=== PATIENT | male | born 1945 | race Caucasian/White ===

== ENCOUNTER 2017-03-10 19:29 | Emergency (ER) | payer MEDICARE ==
[2017-03-10 20:10] VITALS: BP 147/68
--- NOTE | 2017-03-10 20:37 | UC ---
Skin Complaint HPI - HPI Summary HPI Summary: Found tick on R trunk 2 days ago, removed it easily with his fingernails and then "popped" it in the sink and did not see blood. Is concerned about redness of skin, pain, and possible tick parts left behind. - History of Current Complaint Chief Complaint: UCGeneralIllness Time Seen by Provider: 03/10/17 20:19 Stated Complaint: TICK BITE Hx Obtained From: Patient Onset/Duration: Sudden Onset, Lasting Hours Timing: Constant Onset Severity: Mild Current Severity: None Location: Discrete Character: Redness Aggravating: Nothing Alleviating: Nothing Associated Signs & Symptoms: Positive: Negative Related History: Insect Bite/Sting - Allergy/Home Medications Allergies/Adverse Reactions: Allergies Allergy/AdvReac Type Severity Reaction Status Date / Time Minocycline [From Minocin] Allergy HANDS Verified 03/10/17 19:54 SWELL, Sulfamethoxazole Allergy NAUSEA, Verified 03/10/17 19:54 w/Trimethoprim DRY [From Bactrim] HEAVES, FELT BAD Review of Systems Constitutional: Negative Skin: Other - tick bite Eyes: Negative ENT: Negative Respiratory: Negative Cardiovascular: Negative Gastrointestinal: Negative Genitourinary: Negative Motor: Negative Neurovascular: Negative Musculoskeletal: Negative Neurological: Negative Psychological: Negative All Other Systems Reviewed And Are Negative: Yes PMH/Surg Hx/FS Hx/Imm Hx Endocrine History Of: Denies: Diabetes, Thyroid Disease Cardiovascular History Of: Reports: Cardiac Disorders - open heart, stent, Hypertension - CONTROL WITH MEDIATION, Congestive Heart Failure Denies: Pacemaker/ICD, Deep Vein Thrombosis Respiratory History Of: Reports: Pneumonia Denies: COPD, Asthma, Pulmonary Embolism GI/ History Of: Reports: Gall Bladder Disease, Kidney Stones Denies: Ulcer, Gastrointestinal Bleed Neurological History Of: Denies: TIA, CVA, Dementia, Seizures, Migraine Psychological History Of: Denies: Anxiety, Depression, Bipolar Disorder, Schizophrenia Cancer History Of: Denies: Lung Cancer Other History Of: Negative For: Anticoagulant Therapy - Surgical History Surgical History: Yes Surgery Procedure, Year, and Place: gallbladder removed 2004,umbilical hernia aprox 10 yrs ago,triple cardiac bypass 2003, cardiac stent 2004 at [place] pt does not have implant card,arthroscopic sx to L knee in 2003, TURP 2012 - Family History Known Family History: Positive: None - NO CARDIAC, RENAL DISEASE. Negative: Cardiac Disease, Renal Disease - Social History Lives: With Family Alcohol Use: None Substance Use Type: None Smoking Status (MU): Never Smoked Tobacco Have You Smoked in the Last Year: No - Immunization History Most Recent Influenza Vaccination: Fall 2012 Most Recent Tetanus Shot: within the last 2-3 years Most Recent Pneumonia Vaccination: pt unsure Physical Exam Triage Information Reviewed: Yes Appearance: Well-Appearing, No Pain Distress, Obese Vital Signs: Initial Vital Signs Temp 99.1 F 03/10/17 19:58 Pulse 65 03/10/17 19:58 Resp 18 03/10/17 19:58 BP 147/68 03/10/17 19:58 Pulse Ox 97 03/10/17 19:58 Vital Signs Reviewed: Yes Eye Exam: Normal Eyes: Positive: Conjunctiva Clear ENT Exam: Normal ENT: Positive: Normal ENT inspection, Hearing grossly normal, Pharynx normal, TMs normal Dental Exam: Normal Neck exam: Normal Neck: Positive: Supple, Nontender, No Lymphadenopathy Respiratory Exam: Normal Respiratory: Positive: Chest non-tender, Lungs clear, Normal breath sounds, No respiratory distress, No accessory muscle use Cardiovascular Exam: Normal Cardiovascular: Positive: RRR, No Murmur Musculoskeletal Exam: Normal Musculoskeletal: Positive: ROM Intact Neurological Exam: Normal Neurological: Positive: Alert Psychological Exam: Normal Skin Exam: Other - tick bite site normal, benign with bruise in center, no erythema, drainage, or streaking. No tick parts identified. Course/Dx - Diagnoses Provider Diagnoses: tick bite Discharge - Discharge Plan Condition: Stable Disposition: HOME Patient Education Materials: Tick Bite (ED) Referrals: Best Hoffmann MD [Primary Care Provider] - Additional Instructions: If you develop any of the following, please see your physician promptly: (1) Fever, chills, or generalized malaise associated with a headache. (2) A red round area at the site of the bite (or elsewhere) (3) Joint pain, joint swelling or generalized weakness. (4) Redness, swelling, or drainage at the site of the bite. Check yourself, your children and your pets for ticks whenever you've been in an area where ticks live. To remove a tick, grasp it firmly with some tweezers or a string in a slipknot as close to its head as possible and pull it steadily. Ticks do not have a typical "head" attached to their body. There are mouth parts sticking out which they use to feed. If there are mouth parts left behind in the wound there is NO increased risk of Lyme infection; however, the chances of a bacterial skin infection (cellulitis) are higher. If mouth parts remain after tick removal, the best thing to do is apply warm soaks to the area 3-4 times per day to encourage the skin to expel the foreign material. WHEN A TICK IS NOT ENGORGED AND HAS BEEN ON LESS THAN 24 HOURS - THE RISK FOR LYME IS NEGLIGIBLE. YOU CAN REMOVE THE TICK AND OBSERVE THE AREA ON YOUR OWN. FOLLOW-UP CARE: You should contact your private physician for follow-up care if you develop spreading redness near the site of the bite or on any other areas of the body. If you are unable to get a timely appointment, or if you are worsening, call us or return for re-evaluation.
== END 2017-03-10 20:40 | disposition home or self-care (01) ==
LOC: UCEAST 19:29
DX: S30.861A Insect bite (nonvenomous) of abdominal wall, initial encounter (principal); W57.XXXA Bitten or stung by nonvenomous insect and other nonvenomous arthropods, initial encounter; I10 Essential (primary) hypertension; K82.9 Disease of gallbladder, unspecified; Z98.61 Coronary angioplasty status; Z87.01 Personal history of pneumonia (recurrent); Z88.3 Allergy status to other anti-infective agents; Z87.442 Personal history of urinary calculi
CPT/HCPCS: 99211; G0463

== ENCOUNTER 2017-12-23 14:44 | Emergency (ER) | payer MEDICARE ==
[2017-12-23 17:04] VITALS: BP 144/75
[2017-12-23] MEDS ORDERED: Azithromycin TAB* 250 MG PO ONE (18:43)
--- NOTE | 2017-12-23 18:44 | UC ---
Respiratory Complaint HPI - HPI Summary HPI Summary: 2 WEEKS OF PERSISTENT COUGH, RHINITIS AND SOB WITH EXERTION AND WHEN HE TALKS. NONE AT REST. DENIES FEVER, CP, NAUSEA, ST OR EAR PAIN. - History of Current Complaint Chief Complaint: UCGeneralIllness Stated Complaint: COLD Time Seen by Provider: 12/23/17 18:24 Hx Obtained From: Patient Onset/Duration: Gradual Onset, Lasting Days, Still Present Severity Initially: Moderate Severity Currently: Moderate Pain Intensity: 0 Pain Scale Used: 0-10 Numeric Character: Cough: Productive Aggravating Factors: Nothing Alleviating Factors: Nothing Associated Signs And Symptoms: Positive: Dyspnea, URI, Nasal Congestion. Negative: Fever, Chills, Pleuritic Chest Pain, Wheezing, Edema, Hoarseness - Allergies/Home Medications Allergies/Adverse Reactions: Allergies Allergy/AdvReac Type Severity Reaction Status Date / Time MS Minocycline [From Minocin] Allergy HANDS Verified 12/23/17 16:54 SWELL, MS Sulfamethoxazole Allergy NAUSEA, Verified 12/23/17 16:54 w/Trimethoprim DRY [From Bactrim] HEAVES, FELT BAD PMH/Surg Hx/FS Hx/Imm Hx Cardiovascular History: Cardiac Disease, Hypertension Cancer History: Prostate Cancer Other History Of: Negative For: Anticoagulant Therapy - Surgical History Surgical History: Yes Surgery Procedure, Year, and Place: gallbladder removed 2004,umbilical hernia aprox 10 yrs ago,triple cardiac bypass 2003, cardiac stent 2005 at [place] pt does not have implant card,arthroscopic sx to L knee in 2003, TURP 2012 - Family History Known Family History: Positive: Hypertension Negative: Cardiac Disease, Renal Disease - Social History Alcohol Use: None Substance Use Type: None Smoking Status (MU): Never Smoked Tobacco Have You Smoked in the Last Year: No - Immunization History Most Recent Influenza Vaccination: Fall 2012 Most Recent Tetanus Shot: within the last 2-3 years Most Recent Pneumonia Vaccination: pt unsure Review of Systems Constitutional: Negative ENT: Nasal Discharge Respiratory: Shortness Of Breath, Cough Cardiovascular: Negative Gastrointestinal: Negative All Other Systems Reviewed And Are Negative: Yes Physical Exam Triage Information Reviewed: Yes Appearance: Well-Appearing, No Pain Distress, Well-Nourished, Obese Vital Signs: Initial Vital Signs Temp 99.1 F 12/23/17 16:57 Pulse 62 12/23/17 16:57 Resp 22 12/23/17 16:57 BP 144/75 12/23/17 16:57 Pulse Ox 99 12/23/17 16:57 Vital Signs Reviewed: Yes Eyes: Positive: Conjunctiva Clear ENT: Positive: Hearing grossly normal, Pharynx normal, TMs normal Neck: Positive: Supple, Nontender, No Lymphadenopathy Respiratory Exam: Normal Cardiovascular Exam: Normal Abdomen Description: Positive: Soft Musculoskeletal: Positive: No Edema Neurological: Positive: Alert Psychological: Positive: Age Appropriate Behavior Skin: Negative: rashes UC Diagnostic Evaluation - Laboratory O2 Sat by Pulse Oximetry: 99 Respiratory Course/Dx - Differential Dx/Diagnosis Provider Diagnoses: ACUTE BRONCHITIS Discharge - Discharge Plan Condition: Stable Disposition: HOME Prescriptions: Azithromycin 500 mg PO DAILY #4 tab Patient Education Materials: Acute Bronchitis (ED) Referrals: Best Hoffmann MD [Primary Care Provider] - If Needed Additional Instructions: FLU SWAB NEGATIVE. YOUR SYMPTOMS MAY BE VIRALLY MEDIATED BUT GIVEN THE LENGTH OF TIME YOU HAVE BEEN ILL WE WILL COVER YOU WITH ANTIBIOTICS. IF YOU START THE MEDICINE BE SURE TO TAKE IT FOR THE FULL COURSE. REST, HYDRATE, OTC MEDS NEEDED. SEEK FOLLOW-UP WITH YOUR PCP IF YOU ARE NOT IMPROVING OVER THE NEXT 1 WEEK.
== END 2017-12-23 18:55 | disposition home or self-care (01) ==
LOC: UCEAST 14:44
DX: J20.9 Acute bronchitis, unspecified (principal); I11.9 Hypertensive heart disease without heart failure; Z85.46 Personal history of malignant neoplasm of prostate; Z90.49 Acquired absence of other specified parts of digestive tract; Z95.1 Presence of aortocoronary bypass graft; Z95.5 Presence of coronary angioplasty implant and graft; E66.9 Obesity, unspecified; Z88.2 Allergy status to sulfonamides; Z88.8 Allergy status to other drugs, medicaments and biological substances
CPT/HCPCS: 87502; 99212; A9270-GY; G0463

== ENCOUNTER 2018-06-11 10:39 | Emergency (ER) | payer MEDICARE ==
--- OUTSIDE RECORDS SUMMARY | 2018-06-11 10:47 | XMS REPORT ---
:1945 External Reference #:[id number] Author Organization [employer] Address [address] [place] [address] [place] [address] Phone [phone] Care Team Providers Name Role Phone Best Hoffmann MD Primary Care Physician Unavailable Payers Type Date Identification Numbers Payment Provider Subscriber Medicare Primary Effective: Policy Number: Medicare Shady Stroud 2007 [id number] [facility] PayID: [id number] [address] [place] [address] [facility] Part [facility] Effective: Policy Number: [facility] Shady Stroud 2012 [id number] [facility] Mamie PayID: [id number] [address] [place] [address] Problems Date Description Provider Status Onset: 10/18/2013 Arteriosclerosis of autologous Maurice Zurita M.D., Active vein coronary artery bypass graft FAC, FASNC Onset: 11/04/2013 Difficulty breathing Maurice Zurita M.D., Active FAC, FASNC Onset: 04/28/2015 Essential hypertension Erick Gaviria M.D. 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., Active coronary artery w/o ang pctrs FAC, FASNC Family History Date Family Member(s) Problem(s) Comments General MGM lived until 89 PGM lived until 89 Father due to d/t colon cancer () Father Liver Cancer Mother Breast Cancer Mother Colon Cancer Mother Heart issues ; [facility] age 89April Siblings 3 Siblings Brother w/emphysema Siblings Sister w/heart issues; brother smokes/drinks alot Social History Type Date Description Comments Marital Status Lives With Alone son lives with Occupation Retired Cigarette Use Never Smoked Cigarettes ETOH Use Denies alcohol use Smoking Patient has never smoked Recreational Drug Use Denies Drug Use Daily Caffeine Consumes on average 1 soda per day Exercise Type/Frequency Exercises sporadically Exercise Type/Frequency Walks sporadically Allergies, Adverse Reactions, Alerts Date Description Reaction Status Severity Comments 10/17/2013 Bactrim nausea active 10/18/2013 Minocin hand swelling active 03/27/2017 Isosorbide active Mild questionable- knee pain Medications Medication Date Status Form Strength Qnty SIG Indications Ordering Provider Lasix 10/01/ Active 40mg 1 11/14 tab Unknown 2014 po qd Lisinopril 04/27/ Active Tablets 20mg 1 by Unknown 2014 mouth every day Simvastatin 04/27/ Active Tablets 40mg 1 by Unknown 2014 mouth every night at bedtime Niacin / Active Tablets 500mg 30tabs 1 po qd Unknown 0000 Atenolol / Active Tablets 50mg 90tabs 1 po qAM Unknown 0000 Aspirin / Active Tablets DR 81mg 30tabs 1 po qd Unknown 0000 Cpap 00/ Active Device qhs Unknown 0000 Acetaminophen 00/00/ Active Tablets 500mg 2 tablets Unknown 0000 every 6 hours as needed for pain Advil 04/27/ Hx Capsules 200mg as needed Unknown 2014 - 2015 Lasix 11/17/ Hx Tablets 40mg 30tabs 1 by Maurice Garcia 2015 - mouth Parminder, 10/01/ every day Ivan 2015 FAC, FASNC Zocor /00/ Hx Tablets 40mg 30tabs 1 po qhs Unknown 0000 - 2014 Isosorbide /00/ Hx Tablets ER 30mg 90tabs 1 po qd Unknown Mononitrate 0000 - 24HR 2015 Altace 00/00/ Hx 10mg 2 tablets Unknown 0000 - po qPM 2014 Finasteride // Hx Tablets 5mg 30tabs 1 po qd Unknown 0000 - 2012 Vitamin B-12 0000/ Hx Unknown 0000 - 2012 Medications Administered in Office Medication Date Status Form Strength Qnty SIG Indications Ordering Provider Inj, Administered Injection Paresh SAshkan Regadenoson, 016 Bradley, DO 0.1 MG FACC Inj, Administered Injection Maurice Garcia Regadenoson, 016 Zurita, 0.1 MG M.D., FACC, FASNC Technetium TC Administered Injection Paresh S. 99M 016 Bradley, DO Tetrofosmin, FACC Per Unit Dose Up To 40 Millicuries Technetium TC Administered Injection Maurice Garcia 99M 016 Zurita, Tetrofosmin, M.D., FACC, Per Unit Dose FASNC Up To 40 Millicuries Technetium TC Administered Injection Maurice Garcia 99M 013 Zurita, Tetrofosmin, M.D., FACC, Per Unit Dose FASNC Up To 40 Millicuries Immunizations CPT Code Status Date Vaccine Lot # [id number] Given 04/28/2015 Fluvirin Im 3Yrs And Older Vital Signs Date Vital Result Comment 05/28/2018 Height 72 inches 6'0" Weight 375.25 lb with shoes Heart Rate 64 /min BP Systolic Sitting 134 mmHg Lue lrg cuff BP Diastolic Sitting 68 mmHg Lue lrg cuff BP Systolic Standing 140 mmHg Lue lrg cuff BP Diastolic Standing 76 mmHg Lue lrg cuff Respiratory Rate 18 /min BMI (Body Mass Index) 50.9 kg/m2 Ejection Fraction 50-55% 10/21/2015-echo 10/04/2017 Height 72 inches 6'0" Weight 386.00 lb with shoes Heart Rate 60 /min BP Systolic Sitting 144 mmHg Lue large cuff BP Diastolic Sitting 90 mmHg Lue large cuff Respiratory Rate 18 /min O2 % BldC Oximetry 96 % On Ra BMI (Body Mass Index) 52.3 kg/m2 03/27/2017 Height 72 inches 6'0" Weight 380.75 lb with shoes Heart Rate 58 /min BP Systolic Sitting 150 mmHg Rue lrg cuff BP Diastolic Sitting 94 mmHg Rue lrg cuff BP Systolic Standing 146 mmHg Rue lrg cuff BP Diastolic Standing 86 mmHg Rue lrg cuff Respiratory Rate 20 /min BMI (Body Mass Index) 51.6 kg/m2 Ejection Fraction 50-55% 10/21/2015-echo 10/04/2016 Height 72 inches 6'0" Weight 365.00 lb Heart Rate 63 /min BP Systolic Sitting 130 mmHg BP Diastolic Sitting 76 mmHg Respiratory Rate 18 /min O2 % BldC Oximetry 97 % BMI (Body Mass Index) 49.5 kg/m2 04/01/2016 Height 73 inches 6'1" Weight 377.75 lb with shoes Heart Rate 60 /min BP Systolic Sitting 120 mmHg LA lrg cuff BP Diastolic Sitting 72 mmHg LA lrg cuff BP Systolic Standing 116 mmHg LA lrg cuff BP Diastolic Standing 66 mmHg LA lrg cuff BMI (Body Mass Index) 49.8 kg/m2 Ejection Fraction 50%-55% echo 10/21/15 12/02/2015 Height 73 inches 6'1" Weight 376.75 lb with shoes Heart Rate 56 /min BP Systolic Sitting 124 mmHg Ra Lg cuff BP Diastolic Sitting 78 mmHg Ra Lg cuff BP Systolic Standing 124 mmHg Ra Lg cuff BP Diastolic Standing 72 mmHg Ra Lg cuff Respiratory Rate 16 /min BMI (Body Mass Index) 49.7 kg/m2 Ejection Fraction 50-55% 10/21/15 10/07/2015 Height 73 inches 6'1" Weight 373.00 lb Heart Rate 56 /min BP Systolic Sitting 122 mmHg LA large cuff BP Diastolic Sitting 78 mmHg LA large cuff BP Systolic Standing 118 mmHg LA BP Diastolic Standing 82 mmHg LA Respiratory Rate 16 /min BMI (Body Mass Index) 49.2 kg/m2 Ejection Fraction 55-60% 11/04/14 10/02/2015 Height 73 inches 6'1" Weight 270.00 lb Heart Rate 52 /min BP Systolic Sitting 134 mmHg BP Diastolic Sitting 74 mmHg Respiratory Rate 18 /min O2 % BldC Oximetry 97 % BMI (Body Mass Index) 35.6 kg/m2 06/30/2015 Height 73 inches 6'1" Weight 270.00 lb Heart Rate 60 /min BP Systolic Sitting 142 mmHg BP Diastolic Sitting 84 mmHg Respiratory Rate 20 /min O2 % BldC Oximetry 97 % BMI (Body Mass Index) 35.6 kg/m2 04/28/2015 Height 73 inches 6'1" Weight 378.12 lb Heart Rate 63 /min BP Systolic Sitting 140 mmHg BP Diastolic Sitting 82 mmHg Respiratory Rate 20 /min Body Temperature 97.1 F O2 % BldC Oximetry 96 % BMI (Body Mass Index) 49.9 kg/m2 Neck Circumference in inches 20.5 11/17/2014 Weight 365.00 lb per pt Heart Rate 62 /min BP Systolic Sitting 140 mmHg Ra, lg cuff BP Diastolic Sitting 90 mmHg Ra, lg cuff BP Systolic Standing 138 mmHg Ra, lg cuff BP Diastolic Standing 88 mmHg Ra, lg cuff Respiratory Rate 20 /min 11/04/2013 Height 71 inches 5'11" Heart Rate 62 /min BP Systolic Sitting 144 mmHg Lf arm, Lg cuff BP Diastolic Sitting 88 mmHg Lf arm, Lg cuff BP Systolic Standing 142 mmHg BP Diastolic Standing 90 mmHg Respiratory Rate 16 /min 10/18/2013 Height 611 inches 50'11" Weight 359.00 lb without shoes weight RM 6 Heart Rate 68 /min reg BP Systolic Sitting 140 mmHg R arm lg cuff BP Diastolic Sitting 80 mmHg R arm lg cuff BP Systolic Standing 134 mmHg R arm lg cuff BP Diastolic Standing 80 mmHg R arm lg cuff Respiratory Rate 17 /min BMI (Body Mass Index) 0.7 kg/m2 Results Description No Information Procedures Date CPT Code Description Status 05/28/2018 80827 EKG Tracing & Interpretation Completed 03/27/2017 26512 EKG Tracing & Interpretation Completed 04/01/2016 96463 EKG Tracing & Interpretation Completed 11/23/2015 09056 Stress Test Completed 11/23/2015 24165 Myocardial Perfusion Imaging Tomographic (Spect) Completed Multiple Studies 11/23/2015 64141 Myocardial Perfusion Imaging Tomographic (Spect) Completed Multiple Studies 10/21/2015 30902 ECHO Transthoracic, Real-Time 2D With Doppler And Color Completed Flow 10/07/2015 98027 EKG Tracing & Interpretation Completed 06/04/2015 70241 Polysomnography Sleep Staging 4+ Parameters W/Cpap Completed 11/17/2014 73872 EKG Tracing & Interpretation Completed 11/04/2014 67752 ECHO Transthoracic, Real-Time 2D With Doppler And Color Completed Flow 10/28/2013 01068 Stress Test Completed 10/28/2013 50578 Myocardial Perfusion Imaging Tomographic (Spect) Completed Multiple Studies 10/25/2013 41797 ECHO Transthoracic, Real-Time 2D With Doppler And Color Completed Flow 10/18/2013 29225 EKG Tracing & Interpretation Completed Encounters Type Date Location Provider CPT E/M Dx Office Visit 10/04/2017 [facility] Pat Rodríguez, 22376 G47.33 9:00a [facility] WU RN, CARDIAC EXERCISE PHYSIOLOGIST-BC Office Visit 03/27/2017 [facility] Maurice Zurita, 62883 I25.810 8:45a Leigh Ann Love, [facility] Office Visit 10/04/2016 [facility] Pat Rodríguez, 08413 G47.33 9:00a [facility] WU RN, [facility] Office Visit 04/01/2016 [facility] Jose Zurita, 63585 I25.10 1:15p Ivan, JO, [facility] Office Visit 12/02/2015 [facility] Jose Zurita, 08101 I25.718 9:15a Leigh Ann Love, [facility] Office Visit 10/07/2015 [facility] Jose Zurita, 69568 I25.718 9:45a Leigh Ann Love, [facility] Office Visit 10/02/2015 [facility] Pat Rodríguez, 73557 G47.33 10:00a [facility] WU RN, [facility] Office Visit 06/30/2015 [facility] Pat Rodríguez, 38753 327.23 10:00a [facility] Ann WU RN, [facility] Office Visit 04/28/2015 [facility] Erick Gaviria M.D. 67673 327.23 8:30a [facility] 401.9 Office Visit [facility] 04580 414.02 Leigh Ann Love, [facility] Office Visit 03/14/2014 1:32p [facility] Malcom Rowell 32532 780.60 Infectious Diseases Ivan Singh 780.64 729.1 288.50 287.5 Office Visit 03/14/2014 4:04p [facility], Genoveva Contreras, 17201 414.02 Hospitalists Ivan 401.9 995.91 Office Visit 03/13/2014 4:04p [facility], Jose L Nettles, 79877 481 Hospitalists Ivan 995.91 414.02 401.9 Office Visit 03/13/2014 10:15a [facility] Malcom Rowell 82304 780.60 Infectious Diseases Ivan Singh Office Visit 03/12/2014 4:03p [facility] Charli Torres M.D. 38231 481 Ass, Hospitalists 995.91 414.02 401.9 Office Visit 11/04/2013 1:00p [facility] Maurice Zurita, 55073 786.09 Leigh Ann Love, [facility] Office Visit 10/18/2013 8:45a [facility] Maurice Zurita, 13041 414.02 Leigh Ann Love, [facility] Plan of Care Future Appointment(s):10/03/2018 9:00 am - Pat Rodríguez DNP, RN, CARDIAC EXERCISE PHYSIOLOGIST-BC at [facility]05/28/2018 - Maurice Zurita M.D., [facility], [facility].10 Athscl heart disease of jamul coronary artery w/o ang pctrsNew Orders:EchocardiogramComments:As discussed, I feel your heart is doing well. Pleae continue to walk for exercise.Follow up:one year after echo
[2018-06-11 10:58] VITALS: BP 148/83
--- NOTE | 2018-06-11 11:07 | UC ---
Lower Extremity/Ankle HPI - HPI Summary HPI Summary: This is arjun Rod documenting for attending Cassie Oseguera MD. This patient is a 72 year old M presenting to [facility] with a chief complaint of an aching and swelling of the left foot since the morning of 06/09/2018. The patient rates the pain 8/10 in severity. Symptoms aggravated by ambulation and standing No pain with rest or palpation. He also reports redness on his left foot. Pt with small scab and unsure if "bugbite" Patient denies fever, trauma, chills, nausea, and vomiting. He took ibuprofen which had no effect. Pt walking with a limp. No DM. Pt is not immunocompromised. He is on medication for HTN. H Pt's medications reviewed this visit - History of Current Complaint Chief Complaint: UCLowerExtremity Stated Complaint: FOOT PAIN Hx Obtained From: Patient Onset/Duration: Lasting Days - since the morning of 06/09/2018, Still Present Severity Initially: Severe Severity Currently: Severe Pain Intensity: 8 Pain Scale Used: 0-10 Numeric Aggravating Factor(s): Ambulation Able to Bear Weight: Yes - but with a limp - Allergies/Home Medications Allergies/Adverse Reactions: Allergies Allergy/AdvReac Type Severity Reaction Status Date / Time minocycline [From Minocin] Allergy Rash Verified 06/11/18 10:59 sulfamethoxazole Allergy Swelling Verified 06/11/18 11:00 [From Bactrim] trimethoprim [From Bactrim] Allergy Swelling Verified 06/11/18 11:00 PMH/Surg Hx/FS Hx/Imm Hx Previously Healthy: Yes Cardiovascular History: Cardiac Disease, Hypertension Cancer History: Prostate Cancer - 2012 Other History Of: Negative For: Anticoagulant Therapy - Surgical History Surgical History: Yes Surgery Procedure, Year, and Place: gallbladder removed 2004,umbilical hernia aprox 10 yrs ago,triple cardiac bypass 2003, cardiac stent 2004 at [place] pt does not have implant card,arthroscopic sx to L knee in 2003, TURP 2012 - Family History Known Family History: Positive: Hypertension, Diabetes Negative: Cardiac Disease, Renal Disease - Social History Alcohol Use: None Substance Use Type: None Smoking Status (MU): Never Smoked Tobacco Have You Smoked in the Last Year: No - Immunization History Most Recent Influenza Vaccination: Fall 2012 Most Recent Tetanus Shot: within the last 2-3 years Most Recent Pneumonia Vaccination: pt unsure Review of Systems Skin: Other - redness of L foot Musculoskeletal: Edema, Other: - pain in his left foot. Is Patient Immunocompromised?: No All Other Systems Reviewed And Are Negative: Yes Physical Exam - Summary Physical Exam Summary: Vital Signs Reviewed: Yes A+Ox3, no distress Eyes: Conjunctiva Clear, JOSE ALBERTO. EOM intact and full ENT: Hearing grossly normal TM x 2 clear, mmoist, uvula midline, no exudate, no erythema Neck: Positive: Supple Respiratory: Positive: No respiratory distress, No accessory muscle use + CTA throughout no w/r Cardiovascular: RRR nl s1, s2 no m/r CBT <2 sec 1+ PT left 1+ b/l pitting edema abd soft + BS nt/nd no guarding, no distension Musculoskeletal Exam: + SLE + flexext knee, ankle pain dorsum foot with extension, pain base midfoot with flexion. No point tenderness. Neurological: Positive: Alert, + sensation throughout Psychological: Positive: Normal Response To Family Skin: Positive: left foot - diffuse edema, erythema dorsum of foot. pt with small scab dorsum midfoot -no fluctuance, no duration. warm no ttp Triage Information Reviewed: Yes Vital Signs: Initial Vital Signs Temp 98 F 06/11/18 10:55 Pulse 67 06/11/18 10:55 Resp 16 06/11/18 10:55 BP 148/83 06/11/18 10:55 Pulse Ox 99 06/11/18 10:55 Lower Extremity Course/Dx - Course Course Of Treatment: Patient presents with 2 days of diffuse edema swelling and erythema of his left foot. Patient states he first noticed a wound on the top of his foot may be bug bite. Patient states the swelling and redness started after this. Patient without any fevers or chills. Patient without any red streaking. Patient with diffuse erythema on the dorsum of the foot concerning for cellulitis. Patient's CSM intact distally. Will check CBC and chemistry. We'll give patient IM Ancef. We'll start patient on Augmentin. Patient elevate. Patient on crutches here states he has at home. Recommend patient take Motrin Tylenol for pain recommend contact PCP today for recheck appointment this week. Return precautions discussed. Patient returns with the emergency department for increased pain, redness, swelling, or any other concerns. - Differential Dx/Diagnosis Provider Diagnoses: cellulitis left foot Discharge - Sign-Out/Discharge Documenting (check all that apply): Patient Departure - Discharge Plan Condition: Stable Disposition: HOME Prescriptions: Amoxicillin/Clavulanate TAB* [Augmentin TAB 875*] 875 mg PO BID #20 tab Patient Education Materials: Cellulitis (ED) Referrals: Best Hoffmann MD [Primary Care Provider] - Additional Instructions: - Take antibiotics 2 times a day as prescribed - Elevate her leg to help with swelling and pain - It is recommended to use crutches to prevent limping and injury to your back or right leg -If you develop fevers, increased redness, increased pain or any other concerns is recommended to go to emergency department for further evaluation and treatment - okay to alternate ibuprofen (advil, motrin) 600mg and tylenol every 3hours for pain or fever. Take with food. -Contact your doctor today to schedule follow-up appointment for tomorrow afternoon or Monday morning. - Billing Disposition and Condition Condition: STABLE Disposition: Home
[2018-06-11] MEDS ORDERED: ceFAZolin 1 GM in Dextrose (*) 1 GM/50 ML BAG IVPB ONE (11:19)
[2018-06-11] MEDS ORDERED: ceFAZolin 500 MG VIAL(*) 500 MG VIAL IM ONE (11:56)
[2018-06-11] MEDS ORDERED: ceFAZolin 1 GM VIAL(*) ONE (12:21)
[2018-06-11 18:21] LABS: EGFR Non-African American 77.4 (>60)
== END 2018-06-11 12:48 | disposition home or self-care (01) ==
LOC: UCEAST 10:39
DX: L03.116 Cellulitis of left lower limb (principal); I10 Essential (primary) hypertension; Z88.2 Allergy status to sulfonamides; Z88.1 Allergy status to other antibiotic agents
CPT/HCPCS: 36415; 80048; 96372; 99212; G0463; J0690

== ENCOUNTER 2018-08-27 18:06 | Emergency (ER) | payer MEDICARE ==
[2018-08-27] MEDS ORDERED: NS 0.9% 1000 ML* 1,000 ML IV ONE (18:46)
[2018-08-27] MEDS ORDERED: Ondansetron INJ* 2 MG/ML VIAL IV ONE (18:46)
[2018-08-27] MEDS ORDERED: Morphine VIAL* 10 MG/ML 1 ML VIAL IV ONE (18:52)
--- NOTE | 2018-08-27 18:58 | ED ---
Abdominal Pain/Male - HPI Summary HPI Summary: Patient complains of left lower quadrant pain and nausea starting around 1 PM today. Abdominal pain is described as constant, achy, rated 8/10. Denies fever , cough, sore throat, CP, SOB, V/D, change in urine, change in BM. Medical history as HTN, pancreatitis, CABG in 2003. Abdominal surgical history is Vandana , hernia repair. Patient is compliant with hypertension medications. - History of Current Complaint Chief Complaint: EDAbdPain Stated Complaint: ABD PAIN/VOMITING Time Seen by Provider: 08/27/18 18:43 Hx Obtained From: Patient Onset/Duration: Sudden Onset Timing: Constant Severity Initially: Severe Severity Currently: Severe Pain Intensity: 8 Pain Scale Used: 0-10 Numeric Location: Discrete At: LLQ Radiates: No Character: Cramping Aggravating Factor(s): Nothing Alleviating Factor(s): Nothing Associated Signs And Symptoms: Positive: Nausea - Allergies/Home Medications Allergies/Adverse Reactions: Allergies Allergy/AdvReac Type Severity Reaction Status Date / Time minocycline [From Minocin] Allergy Rash Verified 08/27/18 18:30 sulfamethoxazole Allergy Swelling Verified 08/27/18 18:30 [From Bactrim] trimethoprim [From Bactrim] Allergy Swelling Verified 08/27/18 18:30 Home Medications: Home Medications Latanoprost 0.005%* [Xalatan 0.005%*] 1 drop BOTH EYES QPM 08/27/18 [History Confirmed 08/27/18] PMH/Surg Hx/FS Hx/Imm Hx Endocrine/Hematology History: Denies: Hx Anticoagulant Therapy, Hx Blood Disorders, Hx Blood Transfusions, Hx Bone Marrow Disease, Hx Diabetes, Hx Systemic Lupus Erythematosus, Hx Sickle Cell Disease, Hx Thyroid Disease, Hx Anemia, Hx Unexplained Bleeding Cardiovascular History: Reports: Hx Angioplasty, Hx Cardiac Arrest, Hx Congestive Heart Failure, Hx Coronary Artery Disease, Hx Hypercholesterolemia, Hx Hypertension - CONTROL WITH MEDIATION, Other Cardiovascular Problems/ Disorders - 2004 HEART CATHERIZATION WITH STENT PLACEMENT Denies: Hx Aneurysm, Hx Angina, Hx Auto Implanted Cardiovert Defib, Hx Congenital Heart Disease, Hx Deep Vein Thrombosis, Hx Embolism, Hx Hypotension, Hx Pacemaker/ICD, Hx Peripheral Vascular Disease, Hx Rheumatic Fever, Hx Syncope , Hx Valvular Heart Disease Comment Only: Hx Cardiomegaly - unsure Respiratory History: Reports: Hx Pneumonia, Hx Seasonal Allergies, Hx Sleep Apnea - CPAP at home Denies: Hx Asthma, Hx Chronic Bronchitis, Hx Chronic Obstructive Pulmonary Disease (COPD), Hx Cystic Fibrosis, Hx Lung Cancer, Hx Pleural Effusion, Hx Pulmonary Edema, Hx Pulmonary Embolism, Other Respiratory Problems/Disorders GI History: Reports: Hx Gall Bladder Disease, Other GI Disorders - pancreatitis Denies: Hx Cirrhosis, Hx Crohn's Disease, Hx Diverticulosis, Hx Gastroesophageal Reflux Disease, Hx Gastrointestinal Bleed, Hx Hiatal Hernia, Hx Irritable Bowel, Hx Jaundice, Hx Obstructive Bowel, Hx Ileostomy, Hx Pyloric Stenosis, Hx Ulcer History: Reports: Hx Benign Prostatic Hyperplasia - s/p TURP, Hx Kidney Stones, Other Problems/Disorders - ENLARGE PROSTATE Denies: Hx Acute Renal Failure, Hx Chronic Renal Failure, Hx Dialysis, Hx Kidney Infection Musculoskeletal History: Reports: Hx Arthritis - GENERALIZED, LEFT KNEE WORSE Denies: Hx Back Problems, Hx Bursitis, Hx Congenital Bone Abnormalities, Hx Fibromyalgia, Hx Gout, Hx Orthopedic Injury, Hx Osteoporosis, Hx Scoliosis, Hx Tendonitis Sensory History: Reports: Hx Cataracts - cataract sx, Hx Contacts or Glasses, Hx Hearing Problem Denies: Hx Eye Injury, Hx Eye Prosthesis, Hx Glaucoma, Hx Legally Blind, Hx Macular Degeneration, Hx Vision Problem, Hx Deafness, Hx Hearing Aid Opthamlomology History: Reports: Hx Cataracts - cataract sx, Hx Contacts or Glasses Denies: Hx Eye Injury, Hx Eye Prosthesis, Hx Glaucoma, Hx Legally Blind, Hx Macular Degeneration, Hx Vision Problem Neurological History: Reports: Other Neuro Impairments/Disorders - carpal tunnel Denies: Hx Dementia, Hx Developmental Delay, Hx Headaches, Hx Migraine, Hx Nerve Disease, Hx Seizures, Hx Spinal Cord Injury, Hx Transient Ischemic Attacks (TIA) Psychiatric History: Denies: Hx Anxiety, Hx Attention Deficit Hyperactivity Disorder, Hx Eating Disorder, Hx Depression, Hx Panic Disorder, Hx Post Traumatic Stress Disorder, Hx Inpatient Treatment, Hx Community Mental Health Tx, Hx Schizophrenia, Hx Bipolar Disorder, Hx Suicide Attempt, Hx of Violent Episodes Against Others, Hx Substance Abuse - Cancer History Cancer Type, Location and Year: prostate cancer 2012 Hx Chemotherapy: No Hx Radiation Therapy: Yes Hx Palliative Cancer Treatment: No - Surgical History Surgery Procedure, Year, and Place: gallbladder removed 2004,umbilical hernia aprox 10 yrs ago,triple cardiac bypass 2003, cardiac stent 2004 at [place] pt does not have implant card,arthroscopic sx to L knee in 2004, TURP 2013 Hx Anesthesia Reactions: No Infectious Disease History: No Infectious Disease History: Denies: Hx Clostridium Difficile, Hx Hepatitis, Hx Human Immunodeficiency Virus (HIV), Hx of Known/Suspected MRSA, Hx Shingles, Hx Tuberculosis, Hx Known/ Suspected VRE, Hx Known/Suspected VRSA, Traveled Outside the [place] in Last 30 Days - Family History Known Family History: Positive: Hypertension, Diabetes Negative: Cardiac Disease, Renal Disease - Social History Alcohol Use: None Substance Use Type: Reports: None Smoking Status (MU): Never Smoked Tobacco Have You Smoked in the Last Year: No Review of Systems Constitutional: Negative Eyes: Negative ENT: Negative Cardiovascular: Negative Respiratory: Negative Positive: Abdominal Pain, Nausea Genitourinary: Negative Musculoskeletal: Negative Skin: Negative Neurological: Negative Psychological: Normal All Other Systems Reviewed And Are Negative: Yes Physical Exam - Summary Physical Exam Summary: Abdomen soft nontender in all quadrants. Triage Information Reviewed: Yes Vital Signs On Initial Exam: Initial Vitals Temp Pulse Resp BP Pulse Ox 98.2 F 74 20 203/95 95 08/27/18 18:26 08/27/18 18:26 08/27/18 18:26 08/27/18 18:26 08/27/18 18:26 Vital Signs Reviewed: Yes Appearance: Positive: Well-Appearing Skin: Positive: Warm Head/Face: Positive: Normal Head/Face Inspection Eyes: Positive: Normal Neck: Positive: Supple Respiratory/Lung Sounds: Positive: Clear to Auscultation Cardiovascular: Positive: Normal Abdomen Description: Positive: Other: Musculoskeletal: Positive: Normal Neurological: Positive: Normal Psychiatric: Positive: Normal AVPU Assessment: Alert - [place] Coma Scale Best Eye Response: 4 - Spontaneous Best Motor Response: 6 - Obeys Commands Best Verbal Response: 5 - Oriented Coma Scale Total: 15 Diagnostics - Vital Signs Vital Signs Temp Pulse Resp BP Pulse Ox 08/27/18 18:26 98.2 F 74 20 203/95 95 - Laboratory Result Diagrams: 08/27/18 19:12 08/27/18 19:12 Lab Statement: Any lab studies that have been ordered have been reviewed, and results considered in the medical decision making process. Abdominal Pain Fem Course/Dx - Course Course Of Treatment: Patient complains of left lower quadrant pain and nausea starting around 1 PM today. Abdominal pain is described as constant, achy, rated 8/10. Denies fever, cough, sore throat, CP, SOB, V/D, change in urine, change in BM. Medical history as HTN, pancreatitis, CABG in 2003. Abdominal surgical history is Vandana, hernia repair. Patient is compliant with hypertension medications. Physical exam:Abdomen soft nontender in all quadrants. SBP elevated 203/95. History of hypertension, states compliant with hypertension meds. Vital signs otherwise within normal limits. Labs unremarkable. CT positive for left punctate kidney stone. - Diagnoses Provider Diagnoses: Kidney stone on left side Discharge - Sign-Out/Discharge Documenting (check all that apply): Patient Departure - Discharge Plan Condition: Stable Disposition: HOME Prescriptions: HYDROcodone/ACETAMIN 5-325 MG* [[place] 5-325 TAB*] 1 tab PO Q6H PRN 3 Days #10 tab MDD 4 tabs PRN Reason: Pain Patient Education Materials: Kidney Stones (ED), How to Strain Your Urine (ED) Referrals: Best Hoffmann MD [Primary Care Provider] - Rajesh Montelongo MD [Medical Doctor] - Additional Instructions: Follow-up with urology Dr. Montelongo. Return to the ED for any new or worsening symptoms - Billing Disposition and Condition Condition: STABLE Disposition: Home
[2018-08-27 19:19] LABS: ABS Basophils 0 10^3/ul (0-0.2); ABS Eosinophils 0.1 10^3/ul (0-0.6); ABS Lymphocytes 0.9 10^3/ul (1.0-4.8); ABS Monocytes 0.6 10^3/ul (0-0.8); ABS Nucleated RBC 0 10^3/ul; Eosinophil % 1.1 % (0-6); Hematocrit 41 % (42-52); Hemoglobin 13.8 g/dl (14.0-18.0); Lymphocyte % 11.4 % (25-47); Mean Corpuscular HGB Conc 33 g/dl (31-36); Mean Corpuscular Hemoglobin 31 pg (27-31); Mean Corpuscular Volume 92 fL (80-94); Mean Platelet Volume 8.4 um3 (7.4-10.4); Nucleated Red Blood Cells % 0.1; Platelet Count 139 10^3/ul (150-450); Red Blood Count 4.48 10^6/ul (4.00-5.40); Red Cell Distribution Width 15 % (10.5-15); White Blood Count 7.6 10^3/ul (3.5-10.8)
[2018-08-27] MEDS ORDERED: Iohexol 300* (CONTRAST) 10 ML SDV IV ONE (19:47)
[2018-08-27] MEDS ORDERED: Morphine INJ* 4 MG/ML 1 ML SYRINGE (NEW SYRINGE VERSION) IV ONE (20:15)
[2018-08-27 20:17] LABS: Urine Appearance Clear; Urine Blood Negative (Negative); Urine Color Yellow; Urine Ketones Negative (Negative); Urine Protein Negative (Negative); Urine Specific Gravity 1.012 (1.010-1.030); Urine Urobilinogen Negative (Negative)
--- NOTE | 2018-08-27 20:55 | RAD ---
EXAM: CT Abdomen and Pelvis With Intravenous Contrast EXAM DATE/TIME: 08/27/2018 8:14 PM CLINICAL HISTORY: 73 years old, male; Pain; Abdominal pain; Generalized; Prior surgery; Surgery date: 6+ months; Surgery type: Turp, cholecystectomy, umbilical hernia, cabg; Additional info: Llq pain TECHNIQUE: Axial computed tomography images of the abdomen and pelvis with intravenous contrast. All CT scans at this facility use at least one of these dose optimization techniques: automated exposure control; mA and/or kV adjustment per patient size (includes targeted exams where dose is matched to clinical indication); or iterative reconstruction. Coronal and sagittal reformatted images were created and reviewed. CONTRAST: 150 ml of OMNI 300 administered intravenously. COMPARISON: P[facility]SIM CT FOR [facility] 02/06/2013 2:33 PM A/P W CT ABD/PEL W 12/26/2012 9:12:25 AM FINDINGS: Lower thorax: No acute findings. ABDOMEN: Liver: Normal. No mass. Gallbladder and bile ducts: Surgically absent gallbladder. Pancreas: Normal. No ductal dilation. Spleen: Normal. No splenomegaly. Adrenals: Normal. No mass. Kidneys and ureters: Multiple bilateral low attenuating renal lesions several of which do not measure simple fluid including right superior pole measuring 4.8 cm (series 5, image 11) previously 4.3 cm, left mid pole measuring 4.7 cm (series 5, image 13) previously 4.6 cm, and left inferior pole measuring 6.3 cm (series 5, image 26) previously 5.9 cm. Mild left pelvocaliectasis which terminates a punctate calculus distal third left ureter (series 3, image 78). Mild associated left perinephric and periureteral stranding. Associated delayed left renal enhancement. Nonobstructing renal calculus left inferior pole measures 0.5 cm. No right renal calculi pelvocaliectasis. Stomach and bowel: Incompletely distended grossly normal stomach. Normal caliber small bowel. No colonic masses or segmental wall thickening. Appendix: Normal caliber appendix without wall thickening or adjacent inflammation. PELVIS: Bladder: Thin-walled bladder with no focal nodularity, perivesicular stranding, or calcifications. Reproductive: Normal sized prostate. Normal seminal vesicles. ABDOMEN and PELVIS: Intraperitoneal space: Normal. No free air. No significant fluid collection. Bones/joints: The spine demonstrates mild degenerative changes at multiple levels. No fractures. No suspicious bone lesions. Soft tissues: Bilateral fat containing indirect inguinal hernias. No stranding. Supraumbilical fat containing hernia along the midline. No stranding. Vasculature: There is mild atherosclerotic calcification of the coronary arteries. The aorta demonstrates mild atherosclerotic calcification. Patent IVC. Lymph nodes: Normal. No enlarged lymph nodes. IMPRESSION: 1. Punctate mildly obstructing calculus distal third left ureter. Additional nonobstructing left renal calculus. 2. Bilateral stable Bosniak type II renal cysts. No followup is indicated. 3. Bilateral inguinal and supraumbilical hernias. No strangulation. To contact [facility] with a general question: Operations Center - [phone] For direct physician to physician contact: Physician Hotline - [phone] [facility] ([facility] Facility ID #[id number])
[2018-08-27] MEDS ORDERED: Ketorolac INJ* 30 MG/ML 1 ML VIAL IV ONE (21:05)
[2018-08-27] MEDS ORDERED: Ondansetron ODT TAB* 4 MG PO ONE (21:16)
[2018-08-27 21:42] VITALS: BP 166/93
== END 2018-08-27 21:45 | disposition home or self-care (01) ==
LOC: ED 18:06
DX: N20.0 Calculus of kidney (principal); R11.0 Nausea; R10.32 Left lower quadrant pain; I25.2 Old myocardial infarction; I25.10 Atherosclerotic heart disease of native coronary artery without angina pectoris
CPT/HCPCS: 36415; 74177; 80053; 81003; 83690; 85025; 86140; 96374; 96375; 96376; 99284; A9270-GY; J1885; J2270; J2405; Q9967

== ENCOUNTER 2018-09-14 13:13 | Emergency (ER) | payer MEDICARE ==
[2018-09-14 13:32] VITALS: BP 168/98
--- NOTE | 2018-09-14 14:37 | UC ---
Lower Extremity/Ankle HPI - HPI Summary HPI Summary: 73yo M c/o L ankle/foot swelling for several days. Feels similar to past instance of cellulitis however he does not have any redness. He has difficulty walking 2/2 pain and swelling and has increased pain with flexion/extension of the foot. Denies injury to foot or ankle. Denies recent immobility or car/plane ride. no hx of blood clots - History of Current Complaint Chief Complaint: UCLowerExtremity Stated Complaint: RED SWOLLEN FOOT Time Seen by Provider: 09/14/18 14:21 Hx Obtained From: Patient Onset/Duration: Gradual Onset Pain Intensity: 6 - Allergies/Home Medications Allergies/Adverse Reactions: Allergies Allergy/AdvReac Type Severity Reaction Status Date / Time minocycline [From Minocin] Allergy Rash Verified 08/27/18 18:30 sulfamethoxazole Allergy Swelling Verified 08/27/18 18:30 [From Bactrim] trimethoprim [From Bactrim] Allergy Swelling Verified 08/27/18 18:30 PMH/Surg Hx/FS Hx/Imm Hx Other History Of: Negative For: Anticoagulant Therapy - Surgical History Surgical History: Yes Surgery Procedure, Year, and Place: gallbladder removed 2004,umbilical hernia aprox 10 yrs ago,triple cardiac bypass 2003, cardiac stent 2004 at [place] pt does not have implant card,arthroscopic sx to L knee in 2003, TURP 2012 - Family History Known Family History: Positive: Hypertension, Diabetes Negative: Cardiac Disease, Renal Disease - Social History Alcohol Use: None Substance Use Type: None Smoking Status (MU): Never Smoked Tobacco Have You Smoked in the Last Year: No - Immunization History Most Recent Influenza Vaccination: Fall 2012 Most Recent Tetanus Shot: within the last 2-3 years Most Recent Pneumonia Vaccination: pt unsure Review of Systems All Other Systems Reviewed And Are Negative: Yes Physical Exam Triage Information Reviewed: Yes Appearance: Well-Appearing, No Pain Distress, Well-Nourished Vital Signs: Initial Vital Signs Temp 98.4 F 09/14/18 13:26 Pulse 83 09/14/18 13:26 Resp 16 09/14/18 13:26 BP 168/98 09/14/18 13:26 Pulse Ox 98 09/14/18 13:26 Vital Signs Reviewed: Yes Eyes: Positive: Conjunctiva Clear ENT: Positive: Hearing grossly normal Respiratory: Positive: No respiratory distress, No accessory muscle use Skin: Positive: Other - LLE foot and ankle swelling, no redness, no warmth, mild TTP, increased pain w ROM, no calf tenderness Lower Extremity Course/Dx - Differential Dx/Diagnosis Differential Diagnosis/HQI/PQRI: Other - occult fracture, soft-tissue injury, DVT Provider Diagnoses: ankle swelling Discharge - Sign-Out/Discharge Documenting (check all that apply): Patient Departure All imaging exams completed and their final reports reviewed: No Studies - Discharge Plan Condition: Stable Disposition: HOME Referrals: Best Hoffmann MD [Primary Care Provider] - Additional Instructions: Go to ER for evaluation of your swelling - Billing Disposition and Condition Condition: STABLE Disposition: Home
== END 2018-09-14 14:49 | disposition home or self-care (01) ==
LOC: UCEAST 13:13
DX: M25.472 Effusion, left ankle (principal); Z95.1 Presence of aortocoronary bypass graft; Z95.5 Presence of coronary angioplasty implant and graft; Z88.1 Allergy status to other antibiotic agents; Z88.2 Allergy status to sulfonamides
CPT/HCPCS: 99211; G0463

== ENCOUNTER 2020-01-31 16:33 | Inpatient (IN) | payer MEDICARE ==
--- NOTE | 2020-01-31 17:09 | ED ---
HPI Chest Pain - HPI Summary HPI Summary: This pt is a 74 Y/O M presenting to [facility] with a CC of CP described as pressure that extends across his chest that began at 1500 and has been present since. The pain was originally a 7/10 and occurred after eating left over cabbage and potatoes and is currently rated a 2-3/10 in severity. He denies and radiated pain. He states that he was given 4-5 ASA and 1 nitro by EMS en route to [facility]. Pt denies any fever, chills, erythema of eyes, sore throat, SOB, cough, abdominal pain, N/V, dysuria, hematuria, myalgia, edema, rash, or dizziness. He has no aggravating factors. He states that his CP has been alleviated somewhat from either the ASA or the Nitro. He has a PMHx of a MRI, HTN, CHF, CAD, and Angioplasty. - History of Current Complaint Chief Complaint: EDChestPainROMI Time Seen by Provider: 01/31/20 16:51 Hx Obtained From: Patient Onset/Duration: Started Hours Ago - 2, Still Present, Resolved Time of Onset: 03:00 Timing: Constant, Lasting Hours - 2 Initial Severity: Severe - 7 Current Severity: Mild Pain Intensity: 3 Pain Scale Used: 0-10 Numeric Chest Pain Location: Diffuse Chest Pain Radiates: No Character: Pressure/Squeezing Aggravating Factor(s): Nothing Alleviating Factor(s): EMS Tx - 4 ASA and 1 Nitro Associated Signs and Symptoms: Positive: Negative - erythema of eyes, sore throat, dysuria, hematuria, myalgia, edema, rash, or dizziness., Chest Pain. Negative: Shortness of Breath, Fever, Chills, Nausea, Cough, Abdominal Pain, Vomiting - Allergy/Home Medications Allergies/Adverse Reactions: Allergies Allergy/AdvReac Type Severity Reaction Status Date / Time minocycline [From Minocin] Allergy Rash Verified 08/27/18 18:30 sulfamethoxazole Allergy Swelling Verified 08/27/18 18:30 [From Bactrim] trimethoprim [From Bactrim] Allergy Swelling Verified 08/27/18 18:30 Home Medications: Home Medications Aspirin 81 mg CHEW TAB* 81 mg PO BEDTIME 10/31/12 [History Confirmed 01/31/20] Niacin TAB* 500 mg PO BEDTIME 10/31/12 [History Confirmed 01/31/20] Simvastatin TAB(NF) [Zocor 20 MG (NF)] 40 mg PO BEDTIME 10/31/12 [History Confirmed 01/31/20] Atenolol TAB* [Tenormin TAB* 25 MG] 50 mg PO DAILY 01/31/20 [History Confirmed 01/31/20] Furosemide TAB* [Lasix TAB*] 60 mg PO DAILY 01/31/20 [History Confirmed 01/31/20 ] Lisinopril TAB* [Prinivil TAB*] 20 mg PO DAILY 01/31/20 [History Confirmed 01/30] Timolol 0.25% OPHTH.SOLN* [Timoptic Ophth.soln 0.25%] 1 drop BOTH EYES BID 01/30 [History Confirmed 01/31/20] PMH/Surg Hx/FS Hx/Imm Hx Previously Healthy: Yes Endocrine/Hematology History: Denies: Hx Anticoagulant Therapy, Hx Blood Disorders, Hx Blood Transfusions, Hx Bone Marrow Disease, Hx Diabetes, Hx Systemic Lupus Erythematosus, Hx Sickle Cell Disease, Hx Thyroid Disease, Hx Anemia, Hx Unexplained Bleeding Cardiovascular History: Reports: Hx Angioplasty, Hx Cardiac Arrest, Hx Congestive Heart Failure, Hx Coronary Artery Disease, Hx Hypercholesterolemia, Hx Hypertension - CONTROL WITH MEDIATION, Other Cardiovascular Problems/ Disorders - 2004 HEART CATHERIZATION WITH STENT PLACEMENT Denies: Hx Aneurysm, Hx Angina, Hx Auto Implanted Cardiovert Defib, Hx Congenital Heart Disease, Hx Deep Vein Thrombosis, Hx Embolism, Hx Hypotension, Hx Pacemaker/ICD, Hx Peripheral Vascular Disease, Hx Rheumatic Fever, Hx Syncope , Hx Valvular Heart Disease Comment Only: Hx Cardiomegaly - unsure Respiratory History: Reports: Hx Pneumonia, Hx Seasonal Allergies, Hx Sleep Apnea - CPAP at home Denies: Hx Asthma, Hx Chronic Bronchitis, Hx Chronic Obstructive Pulmonary Disease (COPD), Hx Cystic Fibrosis, Hx Lung Cancer, Hx Pleural Effusion, Hx Pulmonary Edema, Hx Pulmonary Embolism, Other Respiratory Problems/Disorders GI History: Reports: Hx Gall Bladder Disease, Other GI Disorders - pancreatitis Denies: Hx Cirrhosis, Hx Crohn's Disease, Hx Diverticulosis, Hx Gastroesophageal Reflux Disease, Hx Gastrointestinal Bleed, Hx Hiatal Hernia, Hx Irritable Bowel, Hx Jaundice, Hx Obstructive Bowel, Hx Ileostomy, Hx Pyloric Stenosis, Hx Ulcer History: Reports: Hx Benign Prostatic Hyperplasia - s/p TURP, Hx Kidney Stones, Other Problems/Disorders - ENLARGE PROSTATE Denies: Hx Acute Renal Failure, Hx Chronic Renal Failure, Hx Dialysis, Hx Kidney Infection Musculoskeletal History: Reports: Hx Arthritis - GENERALIZED, LEFT KNEE WORSE Denies: Hx Back Problems, Hx Bursitis, Hx Congenital Bone Abnormalities, Hx Fibromyalgia, Hx Gout, Hx Orthopedic Injury, Hx Osteoporosis, Hx Scoliosis, Hx Tendonitis Sensory History: Reports: Hx Cataracts - cataract sx, Hx Contacts or Glasses, Hx Hearing Problem Denies: Hx Eye Injury, Hx Eye Prosthesis, Hx Glaucoma, Hx Legally Blind, Hx Macular Degeneration, Hx Vision Problem, Hx Deafness, Hx Hearing Aid Opthamlomology History: Reports: Hx Cataracts - cataract sx, Hx Contacts or Glasses Denies: Hx Eye Injury, Hx Eye Prosthesis, Hx Glaucoma, Hx Legally Blind, Hx Macular Degeneration, Hx Vision Problem Neurological History: Reports: Other Neuro Impairments/Disorders - carpal tunnel Denies: Hx Dementia, Hx Developmental Delay, Hx Headaches, Hx Migraine, Hx Nerve Disease, Hx Seizures, Hx Spinal Cord Injury, Hx Transient Ischemic Attacks (TIA) Psychiatric History: Denies: Hx Anxiety, Hx Attention Deficit Hyperactivity Disorder, Hx Eating Disorder, Hx Depression, Hx Panic Disorder, Hx Post Traumatic Stress Disorder, Hx Inpatient Treatment, Hx Community Mental Health Tx, Hx Schizophrenia, Hx Bipolar Disorder, Hx Suicide Attempt, Hx of Violent Episodes Against Others, Hx Substance Abuse - Cancer History Cancer Type, Location and Year: prostate cancer 2012 Hx Chemotherapy: No Hx Radiation Therapy: Yes Hx Palliative Cancer Treatment: No - Surgical History Surgical History: Yes Surgery Procedure, Year, and Place: gallbladder removed 2004,umbilical hernia aprox 10 yrs ago,triple cardiac bypass 2003, cardiac stent 2004 at [place] pt does not have implant card,arthroscopic sx to L knee in 2003, TURP 2012 Hx Anesthesia Reactions: No - Immunization History Immunizations Up to Date: Yes Infectious Disease History: No Infectious Disease History: Denies: Hx Clostridium Difficile, Hx Hepatitis, Hx Human Immunodeficiency Virus (HIV), Hx of Known/Suspected MRSA, Hx Shingles, Hx Tuberculosis, Hx Known/ Suspected VRE, Hx Known/Suspected VRSA, Traveled Outside the [place] in Last 30 Days - Family History Known Family History: Positive: Hypertension, Diabetes Negative: Cardiac Disease, Renal Disease - Social History Occupation: Retired Lives: Alone Alcohol Use: None Hx Substance Use: No Substance Use Type: Reports: None Hx Tobacco Use: No Smoking Status (MU): Never Smoked Tobacco Have You Smoked in the Last Year: No Review of Systems Negative: Fever, Chills Negative: Erythema Negative: Sore Throat Positive: Chest Pain Negative: Shortness Of Breath, Cough Negative: Abdominal Pain, Vomiting, Nausea Negative: dysuria, hematuria Negative: Myalgia, Edema Negative: Rash Neurological/Mental Status: Negative - dizziness All Other Systems Reviewed And Are Negative: Yes Physical Exam - Summary Physical Exam Summary: Constitutional: Well-developed, morbidly obese, Alert. (-) Distressed, Skin: Warm, Dry HENT: Normocephalic; Atraumatic Eyes: Conjunctiva normal Neck: Musculoskeletal ROM normal neck. (-) JVD, (-) Stridor, (-) Tracheal deviation Cardio: Rhythm regular, rate normal, Heart sounds normal; Intact distal pulses; The pedal pulses are 2+ and symmetric. Radial pulses are 2+ and symmetric. (-) Murmur Pulmonary/Chest wall: Effort normal. (-) Respiratory distress, (-) Wheezes, (-) Rales, non-reproducible chest tenderness Abd: Soft, (-) tenderness, (-) Distension, (-) Guarding, (-) Rebound Musculoskeletal: (-) Edema Lymph: (-) Cervical adenopathy Neuro: Alert, Oriented x3 Psych: Mood and affect Normal Triage Information Reviewed: Yes Vital Signs On Initial Exam: Initial Vitals Temp Pulse Resp BP Pulse Ox 98.6 F 75 18 155/95 96 01/31/20 16:55 01/31/20 16:55 01/31/20 16:55 01/31/20 16:55 01/31/20 16:55 Vital Signs Reviewed: Yes Procedures - Sedation Patient Received Moderate/Deep Sedation with Procedure: No Diagnostics - Vital Signs Vital Signs Temp Pulse Resp BP Pulse Ox 01/31/20 16:55 98.6 F 75 18 155/95 96 - Laboratory Result Diagrams: 01/31/20 17:16 01/31/20 17:16 Lab Statement: Any lab studies that have been ordered have been reviewed, and results considered in the medical decision making process. - Radiology CXR Radiology Interpretation Completed By: Radiologist Summary of Radiographic Findings: CARDIOMEGALY WITHOUT EVIDENCE OF PNEUMONIA. PATIENT IS STATUS POST CHANGED STERNAL THORACOTOMY. ED physciain has reviewed this report. - EKG 1646 Cardiac Rate: NL - 71 BPM EKG Rhythm: Sinus Rhythm ST Segment: Normal Ectopy: None EKG Comparison: No Significant Change - 03/11/2014 Summary of EKG Findings: Normal sinus rhythm at 71 bpm, without change from 03/11, No STEMI or acute abnormalities. Interpreted by Dr. Stock at 1657 on 01/31/[address] Evangelista at 1825 01/31/2020. Re-Evaluation - Re-Evaluation First Eval Re-Evaluation Time: 18:40 Change: Improved Comment: Pt reports 0/10 pain. Chest Pain Course/Dx - Course Course Of Treatment: This pt is a 74 Y/O M presenting to [facility] with a CC of CP described as pressure that extends across his chest that began at 1500 and has been present since. He states that the pain has not decreased and is currently rated a 2-3/10 in severity. He denies and radiated pain. He states that he was given 4-5 ASA and 1 nitro by EMS en route to [facility]. He states that his CP has been alleviated somewhat from either the ASA or the Nitro. He has a PMHx of a MRI, HTN, CHF, CAD, and Angioplasty. His PE found he is obese and has non- reproducible chest tenderness. He has a troponin of .38. He will be admitted to [facility] by Dr. Estrada, Hospitalist, at 1804. Dr. Garcia, Cardiology, was made aware of the pt's condition. CXR: CARDIOMEGALY WITHOUT EVIDENCE OF PNEUMONIA. PATIENT IS STATUS POST CHANGED STERNAL THORACOTOMY. EKG at 1646 shows Normal sinus rhythm at 71 bpm, without change from 03/11/2014, No STEMI or acute abnormalities. Re-evaluation at 1840 shows that the pt has 0/10 pain. He was given Heparin and Nitro during his ED course. He was diagnosed with an NSTEMI. - Diagnoses Provider Diagnoses: NSTEMI (non-ST elevated myocardial infarction) - Provider Notifications Discussed Care Of Patient With: Radha Estrada Time Discussed With Above Provider: 18:05 Instructed by Provider To: Admit As Inpatient Admit/Transition Orders Completed By ED Provider: Yes - Critical Care Time Critical Care Time: 30-74 min - 30 minutes Discharge ED - Sign-Out/Discharge Documenting (check all that apply): Patient Departure - admitted - Discharge Plan Condition: Good Disposition: ADMITTED TO [facility] Referrals: Best Hoffmann MD [Primary Care Provider] - - Attestation Statements Document Initiated by Scribe: Yes Documenting Scribe: José Miguel Naik Provider For Whom Scribe is Documenting (Include Credential): Lukas Evangelista MD Scribe Attestation: José Miguel Meier, scribed for Lukas Evangelista MD on 01/31/20 at 1840. Status of Scribe Document: Ready
[2020-01-31 17:28] LABS: ABS Eosinophils 0.1 10^3/ul (0-0.6); ABS Lymphocytes 0.8 10^3/ul (1.0-4.8); ABS Monocytes 0.3 10^3/ul (0-0.8); ABS Neutrophils 3.7 10^3/ul (1.5-7.7); Eosinophil % 2.6 %; Hematocrit 41 % (42-52); Hemoglobin 13.8 g/dL (14.0-18.0); Lymphocyte % 15.7 %; Mean Corpuscular HGB Conc 34 g/dL (31-36); Mean Corpuscular Hemoglobin 31 pg (27-31); Mean Corpuscular Volume 93 fL (80-94); Mean Platelet Volume 8.8 fL (7.4-10.4); Nucleated Red Blood Cells % 0.1; Platelet Count 127 10^3/uL (150-450); Red Blood Count 4.44 10^6 /uL (4.18-5.48); Red Cell Distribution Width 15 % (10-15)
[2020-01-31] MEDS ORDERED: Nitroglycerin TAB 0.4 MG* 0.4 MG TAB SL ONE (17:39)
[2020-01-31] MEDS ORDERED: Nitroglycerin 0.2 MG/HR PATCH* (5 MG) TRANSDERM ONE (17:39)
[2020-01-31 17:42] LABS: ALT 25 U/L (7-52); AST 32 U/L (13-39); Albumin 3.8 g/dL (3.2-5.2); Albumin/Globulin Ratio 1.3 (1-3); Alkaline Phosphatase 46 U/L (34-104); Anion Gap 5 mmol/L (2-11); BUN/Creatinine Ratio 13.6 (8-20); Blood Urea Nitrogen 18 mg/dL (6-24); CO2 Carbon Dioxide 32 mmol/L (22-32); Calcium 9.3 mg/dL (8.6-10.3); Chloride 106 mmol/L (101-111); EGFR African American 64.5 (>60); EGFR Non-African American 53.3 (>60); Glucose 113 mg/dL (70-100); Potassium 4.2 mmol/L (3.5-5.0); Sodium 143 mmol/L (135-145); Total Protein 6.8 g/dL (6.4-8.9)
[2020-01-31 17:52] LABS: Troponin I 0.38 ng/mL (<0.03)
[2020-01-31] MEDS: Heparin VIAL(*) 5000 UNITS/ML VIAL (FIVE THOUSAND) IV SCH (18:52)
[2020-01-31] MEDS ORDERED: Ondansetron INJ* 2 MG/ML VIAL IV PRN (18:53)
[2020-01-31] MEDS ORDERED: Al Hydrox/Mg Hydrox/Simet LIQ* 30 ML UDC PO PRN (18:53)
[2020-01-31] MEDS ORDERED: Senna TAB 8.6 mg* TAB PO PRN (18:53)
[2020-01-31] MEDS ORDERED: Morphine INJ* 2 MG/ML 1 ML SYRINGE (TWO MG - NEW SYRINGE VERSION) IV PRN (18:59)
[2020-01-31] MEDS ORDERED: Nitroglycerin TAB 0.4 MG* 0.4 MG TAB SL PRN (18:59)
[2020-01-31] MEDS: Heparin DRIP 25,000 UNITS(*) 25,000 UNITS/500 ML BAG IV SCH (19:00)
[2020-01-31] MEDS ORDERED: hydrALAZINE IV* 20 MG/ML VIAL IV SLOW PU PRN (19:28)
[2020-01-31] MEDS: Timolol 0.25% OPHTH.SOLN* BTL BOTH EYES SCH (21:09)
[2020-01-31] MEDS: Niacin ER CAP* 500 MG CAP.ER PO SCH (21:12)
[2020-01-31] MEDS: CMCS:Simvastatin TAB(NF) 20 MG TAB PO SCH (21:12)
[2020-01-31] MEDS: Aspirin 81 mg CHEW TAB* 81 MG TAB.CHEW PO SCH (21:12)
[2020-01-31] MEDS: Lisinopril TAB* 10 MG PO SCH (21:15)
[2020-01-31 21:27] LABS: Troponin I 6.63 ng/mL (<0.03)
--- NOTE | 2020-01-31 21:47 | HP ---
CC: Dr. Hoffmann; Dr. Zurita * HISTORY AND PHYSICAL: DATE OF ADMISSION: 01/31/20 PROVIDER: YUNIOR Martin. ATTENDING PHYSICIAN WHILE IN THE HOSPITAL: Dr. Radha Estrada * (dictated by YUNIOR Martin). PRIMARY CARE PROVIDER: Dr. Hoffmann. OUTPATIENT GAS PIT WORKER: Dr. Zurita. CHIEF COMPLAINT: Chest pain. HISTORY OF PRESENT ILLNESS: Shady Hatch is a 74-year-old white male with past medical history significant for PA in 2003 with 3-vessel CABG; prostate cancer, status post radiation therapy; JOSTIN, on CPAP; thoracic aortic ectasia; chronic lower extremity edema and hypertension, who presented to the emergency department today for chest pain. The patient felt like there was a band across his chest and epigastric region shortly after eating a large amount of corn, beef and cabbage. He initially thought it was gas or acid reflux, they did not go away. He tells me that this is how he felt when he had his PA in 2003. He felt like this is a burning sensation. He received nitroglycerin in the ambulance on his way to emergency department and he is currently chest pain free. He did not have any associated shortness of breath, dizziness, lightheadedness, nausea, vomiting or abdominal pain. Of note, I do see that in August 2019, he saw Dr. Zurita for routine followup and Dr. Zurita noted paroxysmal atrial fibrillation on his EKG and recommended starting Xarelto and the patient tells me he has not ever filled this prescription as he was hesitant due to the risks. Additionally, the patient had a transthoracic echocardiogram in August of 2019 as well, which demonstrated EF of 55% to 60% and interval worsening of his thoracic aortic ectasia. Additionally, the patient tells me that the wound on his right bean has been present for approximately 3 weeks. It initially presented as blister, which then popped on its own and has had difficult time healing. He has not noted any fevers or chills or purulent drainage. Additionally, the patient denies cough, shortness of breath, or sore throat. PAST MEDICAL HISTORY: 1. Coronary artery disease with an PA in 2003 resulting in 3-vessel CABG. Additionally, a stent in 2004 of unknown vessel. 2. Prostate cancer, status post radiation therapy. 3. Hyperlipidemia. 4. Hypertension. 5. JOSTIN, on CPAP. 6. Thoracic aortic ectasia. 7. Chronic lower extremity edema. 8. Paroxysmal atrial fibrillation, not on AC. PAST SURGICAL HISTORY: 1. Three-vessel CABG in 2003. 2. Cholecystectomy. 3. Left knee arthroscopy. 4. Left testicle cyst removal. 5. Urethral expansion surgery. 6. Umbilical hernia repair. HOME MEDICATIONS: 1. Aspirin 81 mg p.o. at bedtime. 2. Simvastatin 40 p.o. at bedtime. 3. Niacin 500 mg p.o. at bedtime. 4. Lisinopril 20 mg p.o. daily. 5. Lasix 60 mg p.o. daily. 6. Atenolol 50 mg p.o. daily. 7. Timolol 1 drop both eyes b.i.d. ALLERGIES: Rash to MINOCYCLINE, swelling to BACTRIM. FAMILY HISTORY: The patient's father of liver cancer. His mother of unclear causes, though he thinks related to the heart. His mother had a history of colon cancer, breast cancer and COPD. His brother is living and has a history of coronary artery disease requiring multiple stents. One of his children of suicide. SOCIAL HISTORY: The patient does not use tobacco and never has. He previously was a binge drinker for about 30 years and quit drinking 20 years ago and denies illicit drug use. He is a retired construction supervisor, , and had 3 children and 1 is . The patient's surrogate medical decision maker should he need one is his sister or his daughter. His sister's name is Tiffani Roman, her phone number is [phone]. His daughter's name is Shena Smyth, phone number [phone] REVIEW OF SYSTEMS: An 11-point review of systems was completed. All pertinent positives and negatives are above in the HPI. All other systems are negative. PHYSICAL EXAMINATION GENERAL: Morbidly obese, elderly white male lying upright in hospital bed, appearing comfortable, in no distress. VITAL SIGNS: Temperature 98.6 degrees Fahrenheit, pulse 75, respiratory rate 18 , oxygen saturation 96% on room air, blood pressure 155/95. EYES: PERRL. Sclerae anicteric. ENT: Mucous membranes moist. LUNGS: Diminished breath sounds, though clear to auscultation throughout. CHEST: No chest pain on palpation throughout the anterior chest or in the epigastric region. CARDIO: Regular rate and rhythm without murmurs, rubs or gallops. ABDOMEN: Normoactive bowel sounds x4 quadrants. Abdomen is soft, nontender, nondistended. EXTREMITIES: Trace edema in the bilateral lower extremities, which is nonpitting pretibially. No clubbing or cyanosis. NEUROLOGIC: The patient is alert and oriented x3. Speech is clear. SKIN: The patient has an approximately 1.5 cm x 3 cm clean based wound to the right bean, which is nonpurulent without surrounding erythema, appears consistent with a previously drained bullous as described by the patient. PERTINENT STUDIES/LAB DATA: White blood cell count 5.0, hemoglobin 13.8, hematocrit 41, platelet count 127. Sodium 143, potassium 4.2, chloride 106, carbon dioxide 32, anion gap 5, BUN 18, creatinine 1.32, glucose 113, lactic acid 1.9, bilirubin 1.5, AST 32, ALT 25, alk phos 46, calcium 9.3, troponin 0.38. Chest x-ray: Cardiomegaly without evidence of pneumonia. The patient is status post sternal thoracotomy. Upon my read, it appears the patient may have bilateral pulmonary edema, especially when compared to previous chest x-ray in 2018. EKG at 1646; normal sinus rhythm at rate 71 beats per minute, approximately 1- mm ST depressions in V4 through V6, isolated ST elevation of 1 mm in lead III. EKG at 1820; normal sinus rhythm, 68 beats per minute, Q waves in leads aVF and III consistent with prior EKG from 2014 as well as in V1 through V2. It appears that ST depressions are no longer present and the T-wave flattening as the same as prior EKG today. ASSESSMENT AND PLAN: Shady Hatch is a 74-year-old while male with past medical history significant for coronary artery disease with an myocardial infarction in 2003, status post 3-vessel coronary artery bypass graft and percutaneous coronary intervention in 2004; prostate cancer; hypertension; hyperlipidemia; obstructive sleep apnea, on CPAP and thoracic aortic ectasia, who presented to emergency department today for chest pain. The patient will be admitted inpatient for: 1. [id number] myocardial infarction. The patient's angina is similar to that of his myocardial infarction in 2003, which resulted in a CABG. He appears to have ST depressions in the lateral leads. It appears they have resolved in the repeat EKG though between these time, he did receive additional nitroglycerin. His troponin is elevated at 0.38 and we will repeat this every 3 hours with additional EKGs. He will be admitted on telemetry. He will be started on heparin drip. I did discuss the case with Dr. Garcia, who plans to have one of the members of the cardiology service evaluate him tomorrow. I will check a fasting lipid panel tomorrow and a hemoglobin A1c. I will continue the patient's home aspirin, lisinopril, atenolol. He was given 325 mg of aspirin via EMS. 2. Questionable pulmonary edema. The patient appears to have pulmonary edema on chest x-ray, though it may just be his cardiomegaly. He is not having shortness of breath, he is not hypoxic, he does take Lasix 60 mg every day. I see no reason to IV diurese him at this time, but perhaps it may be beneficial later in this course. I will continue his oral Lasix for now. 3. Chronic lower extremity edema. The patient takes Lasix for this. As previously mentioned, he has no systolic or diastolic congestive heart failure on previous echo in 2019. I will be ordering a repeat echo today in the setting of his current myocardial infarction. 4. Obstructive sleep apnea. The patient uses CPAP at home and I will continue in the hospital. 5. Hyperlipidemia. I will continue the patient's niacin and simvastatin. 6. Hypertension. I will be continuing the patient's home atenolol and lisinopril. He is hypertensive in the emergency department and I will order p.r.n. hydralazine for a systolic blood pressure over 170 and perhaps his home lisinopril should be increased or an additional agent could be used depending on his blood pressures overnight into the morning. 7. Elevated bilirubin. The patient seems to have a history of elevated bilirubin while he is in the hospital. Perhaps this represents Gilbert's syndrome, but should be followed up. I will order an indirect and direct bili for tomorrow. 6. Acute kidney injury. It appears the patient's baseline creatinine is around 1, it is 1.32 today. Etiology of this is unclear and I will check a FENa. I will give him low rate of fluids at this time to see if this improves. I am avoiding a fluid bolus due to my concern for possible pulmonary edema, but as previously mentioned. 7. DVT prophylaxis: The patient has a DVT risk score of 4. He is currently on heparin drip. 8. Code status: The patient is full code. TIME SPENT: Approximately 55 minutes was spent on this admission, approximately half of the time was spent at bedside evaluating the patient and discussing plan of care. This case has been reviewed by my attending, Dr. Radha Estrada and she agrees with this plan of care. YUNIOR MARTIN [id number]/[facility] #: [id number] GEORGE
[2020-01-31] MEDS: NS 0.9% 1000 ML** 1,000 ML IV SCH (22:05)
[2020-01-31] MEDS ORDERED: Ticagrelor* 90 MG TAB PO ONE (22:05)
--- NOTE | 2020-01-31 22:34 | PN ---
Hospitalist Progress Note Date of Service: 01/31/20 Trop. increased to 6.63- Patient is without chest pain or shortness of breath. EKG without ST elevations. Spoke to Dr. Garcia will start Brilinta 180mg loading dose then 90 mg BID.
[2020-02-01 00:24] LABS: Troponin I 15.52 ng/mL (<0.03)
[2020-02-01 00:25] LABS: Urine Creatinine Concentration 142.7 mg/dL
[2020-02-01] MEDS: Heparin VIAL(*) 5000 UNITS/ML VIAL (FIVE THOUSAND) IV SCH ×3 (01:03→14:36)
[2020-02-01 06:23] LABS: ABS Eosinophils 0.1 10^3/ul (0-0.6); ABS Lymphocytes 1.4 10^3/ul (1.0-4.8); ABS Monocytes 0.6 10^3/ul (0-0.8); ABS Neutrophils 3.8 10^3/ul (1.5-7.7); Eosinophil % 2.5 %; Hematocrit 41 % (42-52); Hemoglobin 13.6 g/dL (14.0-18.0); Lymphocyte % 24.1 %; Mean Corpuscular HGB Conc 34 g/dL (31-36); Mean Corpuscular Hemoglobin 31 pg (27-31); Mean Corpuscular Volume 94 fL (80-94); Mean Platelet Volume 8.7 fL (7.4-10.4); Platelet Count 104 10^3/uL (150-450); Red Blood Count 4.33 10^6 /uL (4.18-5.48); Red Cell Distribution Width 15 % (10-15)
[2020-02-01 06:31] LABS: ALT 29 U/L (7-52); Albumin 3.6 g/dL (3.2-5.2); Albumin/Globulin Ratio 1.3 (1-3); Alkaline Phosphatase 41 U/L (34-104); BUN/Creatinine Ratio 17.6 (8-20); Blood Urea Nitrogen 16 mg/dL (6-24); CO2 Carbon Dioxide 25 mmol/L (22-32); Calcium 9.2 mg/dL (8.6-10.3); Chloride 108 mmol/L (101-111); Cholesterol 133 mg/dL; EGFR African American 99.1 (>60); EGFR Non-African American 81.9 (>60); Globulin 2.8 g/dL (2-4); Glucose 95 mg/dL (70-100); HDL Cholesterol 39.5 mg/dL; LDL Cholesterol 65 mg/dL; Sodium 140 mmol/L (135-145); Total Protein 6.4 g/dL (6.4-8.9); Triglycerides 145 mg/dL
[2020-02-01 06:35] LABS: Troponin I 18.49 ng/mL (<0.03)
[2020-02-01 06:48] LABS: Anion Gap 7 mmol/L (2-11)
[2020-02-01 07:32] LABS: Potassium Redraw 3.6 mmol/L (3.5-5.0)
[2020-02-01] MEDS: NS 0.9% 1000 ML** 1,000 ML IV SCH (09:03)
[2020-02-01] MEDS: Furosemide TAB* 20 MG PO SCH (09:05)
[2020-02-01] MEDS: Atenolol TAB* 50 MG PO SCH (09:05)
[2020-02-01] MEDS: Ticagrelor* 90 MG TAB PO SCH ×2 (09:05→20:08)
[2020-02-01] MEDS: Timolol 0.25% OPHTH.SOLN* BTL BOTH EYES SCH ×2 (09:05→20:04)
[2020-02-01] MEDS ORDERED: NS 0.9% 1000 ML** 1,000 ML IV SCH (09:09)
[2020-02-01 10:05] LABS: Troponin I 14.67 ng/mL (<0.03)
--- NOTE | 2020-02-01 10:23 | PN ---
Subjective Date of Service: 02/01/20 Interval History: Mr. Hatch is feeling well today. He offers no complaints. He was still having CP in the ED last night, but no further CP since arriving on the floor. He had some nausea yesterday which has resolved. Denies SOB, diaphoresis, cough. No concerns from nursing. Family History: Unchanged from Admission Social History: Unchanged from Admission Past Medical History: Unchanged from Admission Objective Active Medications: Acetaminophen (Tylenol Tab*) 650 mg PO Q4H PRN MILD PAIN or TEMP > 100.4 Al Hydrox/Mg Hydrox/Simethicone (Maalox Plus*) 30 ml PO Q6H PRN INDIGESTION Aspirin (Aspirin 81 Mg Chew Tab*) 81 mg PO BEDTIME WIL Atenolol (Tenormin Tab*) 50 mg PO DAILY WIL Furosemide (Lasix Tab*) 60 mg PO DAILY WIL Heparin Sodium (Porcine) (Heparin Vial(*)) 0 units IV .PER DOSE INSTRUCTIO WIL Hydralazine HCl (Apresoline Iv*) 5 mg IV SLOW PU Q6H PRN SYSTOLIC BP GREATER THAN: Heparin Sodium/Dextrose (Heparin Drip 25,000 Units(*)) 25,000 units in 500 mls @ 0 mls/hr IV PER RATE WIL; Protocol Sodium Chloride (Ns 0.9% 1000 Ml) 1,000 mls @ 50 mls/hr IV PER RATE WIL Lisinopril (Prinivil Tab*) 20 mg PO DAILY@2100 WIL Morphine Sulfate (Morphine Inj (Syringe))*) 2 mg IV Q2H PRN PAIN - SEVERE Niacin (Niaspan Er Cap*) 500 mg PO BEDTIME WIL Nitroglycerin (Nitroglycerin Tab 0.4 Mg*) 0.4 mg SL Q5M PRN ANGINA Ondansetron HCl (Zofran Inj*) 4 mg IV Q4H PRN NAUSEA/VOMITING Senna (Senokot 8.6 Mg Tab*) 1 tab PO BID PRN CONSTIPATION Simvastatin (Zocor(Nf)) 40 mg PO BEDTIME WIL Ticagrelor (Brilinta*) 90 mg PO BID WIL Timolol Maleate (Timoptic Ophth.Soln 0.25%) 1 drop BOTH EYES BID [facility] Vital Signs - 8 hr 03/21/20 03/21/20 03/21/20 03:07 08:00 08:32 Temperature 97.9 F 97.9 F Pulse Rate 65 67 Respiratory 18 20 20 Rate Blood Pressure 154/92 147/80 (mmHg) O2 Sat by Pulse 97 96 Oximetry Oxygen Devices in Use Now: None Appearance: Obese elderly male sitting in chair in NAD Ears/Nose/Mouth/Throat: Mucous Membranes Moist Neck: NL Appearance and Movements; NL JVP, Trachea Midline Respiratory: Symmetrical Chest Expansion and Respiratory Effort, Clear to Auscultation Cardiovascular: NL Sounds; No Murmurs; No JVD, RRR Abdominal: NL Sounds; No Tenderness; No Distention Extremities: - - Mild nonpitting BLE Neurological: Alert and Oriented x 3 Lines/Tubes/Other Access: Clean, Dry and Intact Peripheral IV Result Diagrams: 02/01/20 06:04 02/01/20 07:10 Assess/Plan/Problems-Billing Assessment: Mr. Hatch is a 74 yo M with PMH of CAD s/p CABG and stent, prostate cancer s/p radiation, HLD, HTN, JOSTIN; presented to the ED with c/o CP and was found to have an elevated troponin, concerning for NSTEMI. - Patient Problems (1) NSTEMI (non-ST elevated myocardial infarction) Code(s): I21.4 - NON-ST ELEVATION (NSTEMI) MYOCARDIAL INFARCTION Comment: - Chest pain on presentation, resolved after nitro - Trop peaked at 18.49 - EKG unchanged from prior - Echo pending - Appreciate Cardiology consult; plan for cath Monday - Continue heparin gtt, Brilinta (2) JESSA (acute kidney injury) Code(s): N17.9 - ACUTE KIDNEY FAILURE, UNSPECIFIED Comment: - Present on admission, now resolved (3) Hypertension Code(s): I10 - ESSENTIAL (PRIMARY) HYPERTENSION Comment: - Normotensive - Continue lisinopril, atenolol (4) Peripheral edema Code(s): R60.9 - EDEMA, UNSPECIFIED Comment: - Chronic - Continue furosemide (5) Hyperlipidemia Code(s): E78.5 - HYPERLIPIDEMIA, UNSPECIFIED Comment: - Continue simvastatin, niacin (6) DVT prophylaxis Code(s): Z29.9 - ENCOUNTER FOR PROPHYLACTIC MEASURES, UNSPECIFIED Comment: - Heparin gtt (7) Full code status Code(s): Z78.9 - OTHER SPECIFIED HEALTH STATUS Comment: Status and Disposition: Inpatient. Anticipate d/c home when medically stable. Attending: Radha Estrada
[2020-02-01] MEDS: Heparin DRIP 25,000 UNITS(*) 25,000 UNITS/500 ML BAG IV SCH (18:02)
[2020-02-01] MEDS: CMCS:Simvastatin TAB(NF) 20 MG TAB PO SCH (20:07)
[2020-02-01] MEDS: Lisinopril TAB* 10 MG PO SCH (20:08)
[2020-02-01] MEDS: Aspirin 81 mg CHEW TAB* 81 MG TAB.CHEW PO SCH (20:08)
[2020-02-01] MEDS: Niacin ER CAP* 500 MG CAP.ER PO SCH (20:08)
[2020-02-02 05:56] LABS: ABS Eosinophils 0.2 10^3/ul (0-0.6); ABS Lymphocytes 1.6 10^3/ul (1.0-4.8); ABS Monocytes 0.6 10^3/ul (0-0.8); ABS Neutrophils 3.5 10^3/ul (1.5-7.7); Eosinophil % 3.3 %; Hematocrit 41 % (42-52); Lymphocyte % 26.9 %; Mean Corpuscular HGB Conc 34 g/dL (31-36); Mean Corpuscular Hemoglobin 31 pg (27-31); Mean Corpuscular Volume 92 fL (80-94); Mean Platelet Volume 8.7 fL (7.4-10.4); Platelet Count 110 10^3/uL (150-450); Red Blood Count 4.47 10^6 /uL (4.18-5.48); Red Cell Distribution Width 15 % (10-15); White Blood Count 5.9 10^3/uL (3.5-10.8)
[2020-02-02 06:25] LABS: Albumin 3.8 g/dL (3.2-5.2); Albumin/Globulin Ratio 1.5 (1-3); BUN/Creatinine Ratio 16.2 (8-20); EGFR Non-African American 69.4 (>60); Globulin 2.6 g/dL (2-4); Potassium 3.5 mmol/L (3.5-5.0); Total Bilirubin 2.6 mg/dL (0.2-1.0); Total Protein 6.4 g/dL (6.4-8.9)
[2020-02-02] MEDS ORDERED: Perflutren Lipid Microsphere* 3 ML VIAL ONE ×2 (07:24→07:28)
[2020-02-02] MEDS: Acetaminophen TAB* 325 MG PO PRN ×2 (08:38→18:43)
[2020-02-02] MEDS: Ticagrelor* 90 MG TAB PO SCH ×2 (08:39→20:29)
[2020-02-02] MEDS: Furosemide TAB* 20 MG PO SCH (08:39)
[2020-02-02] MEDS: Atenolol TAB* 50 MG PO SCH (08:40)
[2020-02-02] MEDS: Timolol 0.25% OPHTH.SOLN* BTL BOTH EYES SCH ×2 (08:41→19:42)
[2020-02-02] MEDS: Heparin DRIP 25,000 UNITS(*) 25,000 UNITS/500 ML BAG IV SCH (09:30)
[2020-02-02] MEDS: Heparin VIAL(*) 5000 UNITS/ML VIAL (FIVE THOUSAND) IV SCH (10:20)
--- NOTE | 2020-02-02 11:54 | ECHO ---
*[facility]* [place] [address] Fax #: [phone] Transthoracic Echocardiogram Patient: Shady Hatch : 1945 Study Date: 02/02/2020 Age: 74 Gender: M HR: 64 bpm Height: 73 in /185.4 cm BSA: 2.8 m^2 Weight: 371.2 lb /168.7 kg BMI: 49.1 kg/m^2 *Premium Card Cancellation Clerk: * Barbara Leigh RDCS RN *Referring Physician: * O'Ying Franz *Reading Physician: * Eitan Garcia MD Indications: Myocardial Infarction (new). History: Paroxysmal Atrial fibrillation. Coronary artery disease. [place]. CABG. Coronary stenting. JOSTIN on CPAP. Risk factors: Morbidly obese. Conclusions Summary: - Procedure narrative: Transthoracic echocardiography was performed. Image quality was poor. The study was technically limited due to body habitus. Intravenous Definity 4 ml was administered to enhance imaging, but it was of little help. - Left ventricle: The estimated ejection fraction is 50-55%. Grossly normal left ventricle systolic function on limited parasternal imaging. Regional wall motion abnormalities cannot be excluded. Definity was used but was of little help. - Right ventricle: The cavity size is moderately dilated. Systolic function is moderately reduced. - Mitral valve: Not well visualized. There is no significant regurgitation. - Aortic valve: Not well visualized. There is no evidence of stenosis. - Pericardium, extracardiac: There is no significant pericardial effusion. - Pulmonary arteries: Systolic pressure can not be accurately estimated. - Difficult to compared to study of 06/01/12. Study data: Transthoracic echocardiogram. Procedure: Transthoracic echocardiography was performed. Image quality was poor. The study was technically limited due to body habitus. Intravenous Definity 4 ml was administered to enhance imaging, but it was of little help. Complete 2D, spectral Doppler, and color flow Doppler. Location: Bedside. Patient status: Inpatient. Patient room number: 445-01. Rhythm: Normal sinus rhythm with PVC's. Findings Left ventricle: The cavity size is normal. Wall thickness is mildly to moderately increased. The estimated ejection fraction is 50-55%. Grossly normal left ventricle systolic function on limited parasternal imaging. Regional wall motion abnormalities cannot be excluded. Definity was used but was of little help. Left ventricular diastolic function parameters are indeterminate. Right ventricle: Not well visualized. The cavity size is moderately dilated. Systolic function is moderately reduced. Left atrium: The atrium is moderately dilated. Right atrium: Not well visualized. Mitral valve: Not well visualized. The leaflets are mildly thickened. There is no significant regurgitation. Aortic valve: Not well visualized. The leaflets are mildly thickened. There is no evidence of stenosis. There is no significant regurgitation. Tricuspid valve: Not visualized. Pulmonic valve: Not visualized. Aorta: The aorta is poorly visualized. Aortic arch: The aortic arch is not dilated. Pericardium: There is no significant pericardial effusion. Pulmonary arteries: Not visualized. Systolic pressure can not be accurately estimated. Systemic veins: Not visualized. Measurements Left ventricle Value Ref Aortic valve Value Ref EVE, LAX 5.3 cm 4.2 - Lisa diam, ED 3.0 cm ---- 5.8 Peak v, S 0.95 m/sec ---- ESD, LAX 3.9 cm 2.5 - VTI, S 17.7 cm ---- 4.0 Mean grad, S 2.0 mm Hg ---- FS, LAX 26 % 25 - 43 Peak grad, S 4.0 mm Hg ---- PW, ED (H) 1.3 cm 0.6 - LVOT/AV, VTI ratio 0.74 ---- 1.0 IVS/PW, ED 0.98 -------- Mitral valve Value Ref Peak E 1.03 m/sec ---- LVOT Value Ref Peak A 0.56 m/sec ---- Peak suzan, S 0.71 m/sec -------- Decel time 232 ms ---- VTI, S 13.1 cm -------- Peak grad, D 4.2 mm Hg ---- Mean grad, S 1 mm Hg -------- Peak E/A ratio 1.8 ---- Ventricular septum Value Ref Aortic arch Value Ref IVS, ED (H) 1.3 cm 0.6 - Arch diam 3.0 cm ---- 1.0 Decending aorta Value Ref Right ventricle Value Ref Brayan peak suzan 0.52 m/sec ---- EVE minor ax, A4C (H) 5.3 cm 1.9 - mid 3.5 Left atrium Value Ref ML dim, A4C 6.4 cm -------- SI dim, A4C 6.1 cm -------- Legend: (L) and (H) gareth values outside specified reference range. Prepared and electronically signed by Eitan Garcia MD 02/02/2020 11:53
--- NOTE | 2020-02-02 13:52 | CONS ---
CC: Dr. Best Hoffmann; Dr. Maurice Zurita * CARDIOLOGY CONSULTATION: DATE OF CONSULT: 02/01/20 INDICATION FOR CONSULTATION: Coronary artery disease, coronary artery bypass surgery, NSTEMI. HISTORY OF PRESENT ILLNESS: The patient is a 74-year-old gentleman with a history of known coronary artery disease, history of coronary artery bypass surgery, history of stenting to his LAD, who came to the hospital because of chest pain. The patient states that on Monday evening he started having epigastric discomfort. He thought it was indigestion, however, it was of severe pressure on his chest much more than his normal indigestion. He was out in the town [facility] at that time and he stopped at the fire station, they took his blood pressure and insisted that he come to the emergency room. On arrival to the emergency room, the patient continued to have his pain, he rated it as 5/10 , but earlier in the day it was 9/10. The patient's EKG showed normal sinus rhythm with T-wave flattening, no significant elevation or depression on his EKG. His initial troponin level was 0.38, his peak troponin level was 18.5. In speaking with the patient this morning, he has no complaints. He denies any chest pain, shortness of breath. He denies any palpitations. No lightheadedness, dizziness, or syncope. PAST MEDICAL HISTORY: Significant for coronary artery disease, coronary artery bypass surgery in the distant past, this included a STERLING to his LAD and saphenous vein graft to his right coronary, I do not have any other specifics of his bypass. He did have a stent to his LAD, however, a cardiac catheterization in 2004 showed that the STERLING to the LAD was in fact open and patent. He had his coronary artery bypass surgery in September 2004 and his stent to his LAD in 2004. Also, there is a history of mildly dilated ascending aorta, hypertension, newly diagnosed occult atrial fibrillation, renal stones. PAST SURGICAL HISTORY: TURP by Dr. Montelongo, knee surgery, cholecystectomy. OUTPATIENT MEDICATIONS: 1. Lasix 60 mg a day. 2. Lisinopril 20 mg a day. 3. Simvastatin 40 mg a day. 4. Niacin 500 mg a day. 5. Atenolol 50 mg a day. 6. Aspirin 81 mg a day. 6. CPAP machine. ALLERGIES: He is intolerant of ISOSORBIDE, MINOCIN, and BACTRIM. FAMILY HISTORY: The father of liver cancer. Mother of breast cancer. SOCIAL HISTORY: He is . He lives alone. His sister is involved in his care. Denies tobacco use. Denies alcohol use. Rare exercise. REVIEW OF SYSTEMS: Negative for fevers and chills. Negative or changes in bowel or bladder habits. Negative for change in weight. Other 12-point review is unremarkable. PHYSICAL EXAMINATION: Height is 6 feet 1 inch, weight 375 pounds. Temperature 98.1, heart rate is 62, blood pressure 167/79, respiratory rate is 16, oxygen saturation 99% on room air. Sclerae anicteric. Oropharynx is pink without erythema. Carotids are 2+ without bruits. JVD is normal. Thyroid is normal. Cardiac Exam: S1, S2 without any murmurs, rubs, or gallops. PMI is normal. He does have distant heart sounds. Lungs: Mildly decreased lung sounds. There are no rhonchi or rales. There is no dullness to percussion. Abdomen is obese, soft, nontender, nondistended with normoactive bowel sounds. Extremities show 1+ edema. He has 2+ pulses throughout. The patient is awake, alert, and oriented. He moves all 4 extremities equally. DIAGNOSTIC STUDIES/LAB DATA: Laboratory studies demonstrate chemistries within normal limits. BUN 16, creatinine 0.9. AST and ALT are normal. Total cholesterol 133, LDL cholesterol 65, HDL cholesterol 39. CBC within normal limits IMPRESSION: This is a 74-year-old gentleman with a history of coronary artery disease, history of coronary artery bypass surgery in 2003, who comes in for a non- ST-elevation myocardial infarction. The patient's peak troponin level was 18. The patient was started on heparin. He was started on Brilinta. His other medications continued. The patient is currently pain-free. At this point, the patient will be continued on heparinization for 48 hours. The patient will schedule for cardiac catheterization on Monday. The concern is vascular access. The patient may be difficult to do a femoral cath because of his weight. The patient may need a left radial calf to access his STERLING to his LAD and other grafts. Further recommendations pending results of his cardiac catheterization. The patient will undergo echocardiogram. [id number]/[facility] #: [id number] [facility]
--- NOTE | 2020-02-02 14:20 | PN ---
Subjective Date of Service: 02/02/20 Interval History: Mr. Hatch is feeling well today. He offers no complaints. Slept well overnight. His left ankle was sore this morning, but this is a common occurrence for him and is resolved with Tylenol. Denies CP, SOB, cough, N/V, diaphoresis. No concerns from nursing. Family History: Unchanged from Admission Social History: Unchanged from Admission Past Medical History: Unchanged from Admission Objective Active Medications: Acetaminophen (Tylenol Tab*) 650 mg PO Q4H PRN MILD PAIN or TEMP > 100.4 Al Hydrox/Mg Hydrox/Simethicone (Maalox Plus*) 30 ml PO Q6H PRN INDIGESTION Aspirin (Aspirin 81 Mg Chew Tab*) 81 mg PO BEDTIME WIL Atenolol (Tenormin Tab*) 50 mg PO DAILY WIL Atorvastatin Calcium (Lipitor*) 80 mg PO 1700 WIL Diazepam (Valium Tab(*)) 5 mg PO ONCE PRN call center support representative to [employer] Diphenhydramine HCl (Benadryl Po*) 25 mg PO ONCE PRN call center support representative to [employer] Furosemide (Lasix Tab*) 60 mg PO DAILY [facility] Heparin Sodium (Porcine) (Heparin Vial(*)) 0 units IV .PER DOSE INSTRUCTIO WIL Hydralazine HCl (Apresoline Iv*) 5 mg IV SLOW PU Q6H PRN SYSTOLIC BP GREATER THAN Heparin Sodium/Dextrose (Heparin Drip 25,000 Units(*)) 25,000 units in 500 mls @ 0 mls/hr IV PER RATE WIL; Protocol Sodium Chloride (Ns 0.9% 1000 Ml) 1,000 mls @ 75 mls/hr IV .per rate WIL Lisinopril (Prinivil Tab*) 40 mg PO DAILY@2100 WIL Morphine Sulfate (Morphine Inj (Syringe))*) 2 mg IV Q2H PRN PAIN - SEVERE Niacin (Niaspan Er Cap*) 500 mg PO BEDTIME WIL Nitroglycerin (Nitroglycerin Tab 0.4 Mg*) 0.4 mg SL Q5M PRN ANGINA Ondansetron HCl (Zofran Inj*) 4 mg IV Q4H PRN NAUSEA/VOMITING Senna (Senokot 8.6 Mg Tab*) 1 tab PO BID PRN CONSTIPATION Ticagrelor (Brilinta*) 90 mg PO BID [facility] Timolol Maleate (Timoptic Ophth.Soln 0.25%) 1 drop BOTH EYES BID WIL Vital Signs - 8 hr 02/02/20 02/02/20 02/02/20 07:46 08:00 11:37 Temperature 98.0 F 98.1 F Pulse Rate 64 62 Respiratory 16 17 16 Rate Blood Pressure 140/80 167/79 (mmHg) O2 Sat by Pulse 100 99 Oximetry Oxygen Devices in Use Now: None Appearance: Obese elderly male lying in bed in NAD Ears/Nose/Mouth/Throat: Mucous Membranes Moist Neck: NL Appearance and Movements; NL JVP, Trachea Midline Respiratory: Symmetrical Chest Expansion and Respiratory Effort, Clear to Auscultation Cardiovascular: NL Sounds; No Murmurs; No JVD, RRR Abdominal: NL Sounds; No Tenderness; No Distention Extremities: - - Mild nonpitting BLE Neurological: Alert and Oriented x 3 Lines/Tubes/Other Access: Clean, Dry and Intact Peripheral IV Nutrition: Taking PO's Result Diagrams: 02/02/20 05:34 02/02/20 05:34 Assess/Plan/Problems-Billing Assessment: Mr. Hatch is a 74 yo M with PMH of CAD s/p CABG and stent, prostate cancer s/p radiation, HLD, HTN, JOSTIN; presented to the ED with c/o CP and was found to have an elevated troponin, concerning for NSTEMI. - Patient Problems (1) NSTEMI (non-ST elevated myocardial infarction) Code(s): I21.4 - NON-ST ELEVATION (NSTEMI) MYOCARDIAL INFARCTION Comment: - Chest pain on presentation, resolved after nitro - Trop peaked at 18.49 - EKG unchanged from prior - Echo was a poor study, but showed EF 50-55%, wall motion abnormalities could not be excluded - Appreciate Cardiology consult; plan for cath Monday - Continue heparin gtt, Brilinta, aspirin (2) JESSA (acute kidney injury) Code(s): N17.9 - ACUTE KIDNEY FAILURE, UNSPECIFIED Comment: - Present on admission, now resolved (3) Hypertension Code(s): I10 - ESSENTIAL (PRIMARY) HYPERTENSION Comment: - Isolated HTN this morning - Continue lisinopril, atenolol (4) Peripheral edema Code(s): R60.9 - EDEMA, UNSPECIFIED Comment: - Chronic - Continue furosemide (5) Hyperlipidemia Code(s): E78.5 - HYPERLIPIDEMIA, UNSPECIFIED Comment: - Continue simvastatin, niacin (6) DVT prophylaxis Code(s): Z29.9 - ENCOUNTER FOR PROPHYLACTIC MEASURES, UNSPECIFIED Comment: - Heparin gtt (7) Full code status Code(s): Z78.9 - OTHER SPECIFIED HEALTH STATUS Comment: Status and Disposition: Inpatient. Cath tomorrow. Anticipate d/c home when medically stable. Attending: Radha Estrada
[2020-02-02 15:36] LABS: Magnesium 1.9 mg/dL (1.9-2.7)
[2020-02-02] MEDS: Atorvastatin* 80 MG TAB PO SCH (17:02)
[2020-02-02] MEDS: Lisinopril TAB* 10 MG PO SCH (20:29)
[2020-02-02] MEDS: Aspirin 81 mg CHEW TAB* 81 MG TAB.CHEW PO SCH (20:29)
[2020-02-02] MEDS: Niacin ER CAP* 500 MG CAP.ER PO SCH (20:30)
[2020-02-03] MEDS: NS 0.9% 1000 ML** 1,000 ML IV SCH ×2 (00:48→13:49)
[2020-02-03 06:21] LABS: INR 1.31 (0.82-1.09)
[2020-02-03 06:33] LABS: Calcium 9.3 mg/dL (8.6-10.3); Potassium 4.1 mmol/L (3.5-5.0)
[2020-02-03 06:38] LABS: BUN/Creatinine Ratio 16.2 (8-20); EGFR Non-African American 69.4 (>60)
[2020-02-03] MEDS ORDERED: Diazepam TAB(*) 5 MG PO PRN (07:01)
[2020-02-03] MEDS ORDERED: diPHENhydraMINE PO* 25 MG PO PRN (07:54)
[2020-02-03] MEDS: Atenolol TAB* 50 MG PO SCH (07:54)
[2020-02-03] MEDS: Ticagrelor* 90 MG TAB PO SCH ×2 (07:55→21:13)
[2020-02-03] MEDS: Timolol 0.25% OPHTH.SOLN* BTL BOTH EYES SCH ×3 (07:55→21:13)
[2020-02-03 08:03] LABS: ABS Eosinophils 0.1 10^3/ul (0-0.6); ABS Lymphocytes 1.7 10^3/ul (1.0-4.8); ABS Monocytes 0.9 10^3/ul (0-0.8); ABS Neutrophils 5.9 10^3/ul (1.5-7.7); Eosinophil % 0.8 %; Hematocrit 42 % (42-52); Hemoglobin 14.2 g/dL (14.0-18.0); Mean Corpuscular HGB Conc 34 g/dL (31-36); Mean Corpuscular Hemoglobin 31 pg (27-31); Mean Corpuscular Volume 92 fL (80-94); Platelet Count 132 10^3/uL (150-450); Red Blood Count 4.53 10^6 /uL (4.18-5.48); Red Cell Distribution Width 15 % (10-15); White Blood Count 8.7 10^3/uL (3.5-10.8)
[2020-02-03] MEDS: Furosemide TAB* 20 MG PO SCH (09:28)
[2020-02-03] MEDS: Acetaminophen TAB* 325 MG PO PRN ×2 (11:21→23:47)
[2020-02-03] MEDS ORDERED: Heparin 2 UNITS/ML IVPREMIX* 2,000 ML IV ONE (11:44)
[2020-02-03] MEDS ORDERED: Iohexol 350 (CONTRAST) 200 ML MDV IV ONE (11:44)
[2020-02-03] MEDS ORDERED: Lidocaine 1% INJ* 10 MG/ML 30 ML SDV ONE (11:44)
[2020-02-03] MEDS ORDERED: nitroGLYCERIN DRIP* 25,000 MCG/250 ML BTL ONE (11:47)
[2020-02-03] MEDS ORDERED: fentaNYL* 50 MCG/ML 2 ML VIAL (100 MCG VIAL) ONE (11:47)
[2020-02-03] MEDS ORDERED: VERAPAMIL 2.5 MG/ML 2 ML VIAL ** 5 mg/2 ml ONE (11:47)
[2020-02-03] MEDS ORDERED: Midazolam* 1 MG/ML 5 ML VIAL (5 MG) ONE (11:47)
[2020-02-03] MEDS ORDERED: Heparin(*) 1000 UNIT/ML 10 ML VIAL CATH LAB IV ONE (11:47)
[2020-02-03] MEDS ORDERED: Heparin DRIP 25,000 UNITS(*) 25,000 UNITS/500 ML BAG IV SCH ×2 (13:45→17:00)
[2020-02-03 14:12] LABS: ABS Lymphocytes 1.1 10^3/ul (1.0-4.8); ABS Monocytes 0.8 10^3/ul (0-0.8); ABS Neutrophils 5.1 10^3/ul (1.5-7.7); Eosinophil % 0.6 %; Hematocrit 39 % (42-52); Hemoglobin 13.6 g/dL (14.0-18.0); Lymphocyte % 15.8 %; Mean Corpuscular HGB Conc 35 g/dL (31-36); Mean Corpuscular Hemoglobin 32 pg (27-31); Mean Corpuscular Volume 92 fL (80-94); Mean Platelet Volume 8.7 fL (7.4-10.4); Platelet Count 117 10^3/uL (150-450); Red Blood Count 4.26 10^6 /uL (4.18-5.48); Red Cell Distribution Width 15 % (10-15); White Blood Count 7.1 10^3/uL (3.5-10.8)
[2020-02-03 14:27] LABS: EGFR African American 84.9 (>60); EGFR Non-African American 70.2 (>60)
[2020-02-03] MEDS: Heparin DRIP 25,000 UNITS(*) 25,000 UNITS/500 ML BAG IV SCH (15:39)
[2020-02-03] MEDS: Atorvastatin* 80 MG TAB PO SCH (15:48)
--- NOTE | 2020-02-03 15:59 | PN ---
Subjective Date of Service: 02/03/20 Interval History: Mr. Hatch is feeling well. He was seen today after cardiac cath this morning. Denies any complaints. Still feeling a little drowsy and occasionally dozing off. Denies CP, SOB, cough. Good appetite. No concerns from nursing. Family History: Unchanged from Admission Social History: Unchanged from Admission Past Medical History: Unchanged from Admission Objective Active Medications: Acetaminophen (Tylenol Tab*) 650 mg PO Q4H PRN MILD PAIN or TEMP > 100.4 Al Hydrox/Mg Hydrox/Simethicone (Maalox Plus*) 30 ml PO Q6H PRN INDIGESTION Aspirin (Aspirin 81 Mg Chew Tab*) 81 mg PO BEDTIME WIL Atenolol (Tenormin Tab*) 50 mg PO DAILY [facility] Atorvastatin Calcium (Lipitor*) 80 mg PO 1700 WIL Furosemide (Lasix Tab*) 60 mg PO DAILY [facility] Heparin Sodium (Porcine) (Heparin Vial(*)) 0 units IV .PER PROTOCOL [facility] Hydralazine HCl (Apresoline Iv*) 5 mg IV SLOW PU Q6H PRN SYSTOLIC BP GREATER THAN Sodium Chloride (Ns 0.9% 1000 Ml) 1,000 mls @ 75 mls/hr IV .per rate [facility] Heparin Sodium/Dextrose (Heparin Drip 25,000 Units(*)) 25,000 units in 500 mls @ 0 mls/hr IV PER RATE [facility]; Protocol Lisinopril (Prinivil Tab*) 40 mg PO DAILY@2100 [facility] Niacin (Niaspan Er Cap*) 500 mg PO BEDTIME [facility] Nitroglycerin (Nitroglycerin Tab 0.4 Mg*) 0.4 mg SL Q5M PRN ANGINA Ondansetron HCl (Zofran Inj*) 4 mg IV Q4H PRN NAUSEA/VOMITING Senna (Senokot 8.6 Mg Tab*) 1 tab PO BID PRN CONSTIPATION Ticagrelor (Brilinta*) 90 mg PO BID [facility] Timolol Maleate (Timoptic Ophth.Soln 0.25%) 1 drop BOTH EYES BID [facility] Vital Signs - 8 hr 02/03/20 02/03/20 02/03/20 09:30 09:31 11:21 Temperature Pulse Rate Respiratory 20 20 18 Rate Blood Pressure (mmHg) O2 Sat by Pulse Oximetry 02/03/20 02/03/20 02/03/20 11:23 13:30 13:32 Temperature 98.7 F Pulse Rate 64 60 66 Respiratory 22 18 21 Rate Blood Pressure 154/78 153/82 (mmHg) O2 Sat by Pulse 95 96 96 Oximetry 02/03/20 02/03/20 02/03/20 13:36 13:41 14:00 Temperature Pulse Rate 65 64 64 Respiratory 20 20 16 Rate Blood Pressure 150/79 147/81 (mmHg) O2 Sat by Pulse 95 96 95 Oximetry 02/03/20 02/03/20 02/03/20 14:08 14:23 14:39 Temperature Pulse Rate 59 62 66 Respiratory 22 13 20 Rate Blood Pressure 178/96 166/101 179/104 (mmHg) O2 Sat by Pulse 95 94 96 Oximetry 02/03/20 02/03/20 02/03/20 15:00 15:08 15:49 Temperature 98.3 F Pulse Rate 71 70 69 Respiratory 5 25 20 Rate Blood Pressure 150/86 133/69 (mmHg) O2 Sat by Pulse 96 95 96 Oximetry Oxygen Devices in Use Now: None Appearance: Elderly male lying in bed in NAD Ears/Nose/Mouth/Throat: Mucous Membranes Moist Neck: NL Appearance and Movements; NL JVP, Trachea Midline Respiratory: Symmetrical Chest Expansion and Respiratory Effort, Clear to Auscultation Cardiovascular: NL Sounds; No Murmurs; No JVD, RRR Abdominal: NL Sounds; No Tenderness; No Distention Neurological: Alert and Oriented x 3 Lines/Tubes/Other Access: Clean, Dry and Intact Peripheral IV Nutrition: Taking PO's Result Diagrams: 02/03/20 13:54 02/03/20 13:54 Assess/Plan/Problems-Billing Assessment: Mr. Hatch is a 74 yo M with PMH of CAD s/p CABG and stent, prostate cancer s/p radiation, HLD, HTN, JOSTIN; presented to the ED with c/o CP and was found to have an elevated troponin, concerning for NSTEMI. - Patient Problems (1) NSTEMI (non-ST elevated myocardial infarction) Code(s): I21.4 - NON-ST ELEVATION (NSTEMI) MYOCARDIAL INFARCTION Comment: - Chest pain on presentation, resolved after nitro - Trop peaked at 18.49 - EKG unchanged from prior - Echo was a poor study, but showed EF 50-55%, wall motion abnormalities could not be excluded - Appreciate Cardiology consult - Cath today showing 2 lesions needing stenting, cath report to follow; large amount of dye was needed today to obtain images, so plan will be for cath on Monday for stenting - Continue heparin gtt (restart now), Brilinta, aspirin (2) JESSA (acute kidney injury) Code(s): N17.9 - ACUTE KIDNEY FAILURE, UNSPECIFIED Comment: - Present on admission, now resolved (3) Hypertension Code(s): I10 - ESSENTIAL (PRIMARY) HYPERTENSION Comment: - Isolated hypertensive readings - Continue lisinopril, atenolol (4) Peripheral edema Code(s): R60.9 - EDEMA, UNSPECIFIED Comment: - Chronic - Continue furosemide (5) Hyperlipidemia Code(s): E78.5 - HYPERLIPIDEMIA, UNSPECIFIED Comment: - Continue simvastatin, niacin (6) DVT prophylaxis Code(s): Z29.9 - ENCOUNTER FOR PROPHYLACTIC MEASURES, UNSPECIFIED Comment: - Heparin gtt (7) Full code status Code(s): Z78.9 - OTHER SPECIFIED HEALTH STATUS Comment: Status and Disposition: Inpatient. Back to [facility] Monday. Anticipate d/c home when medically stable. Attending: Radha Estrada
--- NOTE | 2020-02-03 17:48 | CATH ---
CC: Dr. Maurice Zurita; Dr. Jakob Valentin * CARDIAC CATHETERIZATION REPORT: DATE OF PROCEDURE: 02/03/20 - ROOM #445 PROCEDURE: Cardiac catheterization including coronary angiography, saphenous vein graft angiography, and internal mammary artery angiography. INDICATION FOR PROCEDURE: Coronary artery disease, coronary artery bypass surgery, NSTEMI. The patient is a 74-year-old gentleman who underwent coronary artery bypass in September of 2004. At that time, he had a STERLING to his LAD, a saphenous vein graft to his obtuse marginal, and a saphenous vein graft to his PDA. The patient has done well for the past 15 years. The patient was admitted to the hospital with typical anginal type symptoms and ruled in for a myocardial infarction. Peak troponin of 18. Cardiac catheterization was recommended. DESCRIPTION OF PROCEDURE: The patient was in a fasting state. Informed consent had been obtained prior to the procedure. All labs had been reviewed. The patient was placed supine on the procedure table. His left radial area was prepped and draped in usual fashion. 1% lidocaine was used for local anesthesia. The radial artery was entered by a Seldinger technique and a guidewire was placed. Over the guidewire, a 6-Thai hydrophilic sheath was placed. Through the sheath, an infusion of heparin, nitroglycerin, and verapamil was infused. The patient underwent coronary angiography using a 6- Thai JL4 catheter, 6-Thai AR1 and AR2 catheters, and a 6-Thai JOVANA catheter. At the end of the procedure, all sheaths and catheters were removed. The patient tolerated the procedure well with no complications. A total of 12.5 minutes of fluoro time was used. A total of 175 cc of Omnipaque dye was used. FINDINGS: 1. Central aortic blood pressure 132/85 with a mean of 107. 2. Left main artery: The left main was normal in size. It bifurcated into the LAD and circumflex. There was mild calcification. There was no evidence of stenosis in the left main. 3. Left anterior descending artery: The LAD was normal in size. It gave off 2 diagonal vessels. The LAD itself had a 50% stenosis in the mid vessel after the second diagonal. The remainder of the vessel was without disease. There was no evidence of competitive flow from STERLING to the LAD. The first diagonal was a small nondominant vessel. The second diagonal was a large vessel. It was at least a 2.5 mm vessel. It had proximal 95% stenosis. 4. Left circumflex artery: The circumflex artery was normal in size. It gave off 1 obtuse marginal branch. Just after the obtuse marginal branch, it was occluded in its mid vessel. There was no other evidence of other obtuse marginals. 5. Right coronary artery: The ostium of the right coronary artery was occluded at the aorta. 6. Saphenous vein graft to the PDA was open and patent. There was retrograde filling of the PDA to the posterolateral branch. 7. Saphenous vein graft to obtuse marginal: The vein graft itself was open. There was a 95% stenosis of the proximal portion with thrombus formation in the proximal portion of the vein graft. The anastomosis to the obtuse marginal was normal. The remainder of the obtuse marginal vessel was without disease. 8. Internal mammary artery to the LAD could not be found. Injection of the subclavian artery showed no evidence of the internal mammary artery. IMPRESSION: 1. Critical stenosis of proximal saphenous vein graft to the obtuse marginal with thrombus formation. 2. STERLING to the LAD is not present and likely a small atretic vessel. 3. Saphenous vein graft to the PDA is open and patent. 4. Left main and LAD are essentially without disease. 5. Second diagonal vessel with proximal 95% stenosis. RECOMMENDATIONS: The patient will be evaluated for possible intervention to his saphenous vein graft to the PDA and possibly the second diagonal vessel. Because of the high volume of IV dye and long fluoro time, this will be considered in 2 days' time. [id number]/[facility] #: [id number] GEORGE
[2020-02-03] MEDS ORDERED: Metoprolol Tartrate IV* 1 MG/ML 5 ML VIAL IV ONE (20:16)
[2020-02-03] MEDS: Aspirin 81 mg CHEW TAB* 81 MG TAB.CHEW PO SCH (21:13)
[2020-02-03] MEDS: Niacin ER CAP* 500 MG CAP.ER PO SCH (21:13)
[2020-02-03] MEDS: Lisinopril TAB* 10 MG PO SCH (22:11)
[2020-02-03] MEDS: Heparin VIAL(*) 5000 UNITS/ML VIAL (FIVE THOUSAND) IV SCH (23:47)
[2020-02-04 00:32] LABS: Influenza A Molecular Negative (Negative); Influenza B Molecular Negative (Negative)
[2020-02-04 01:12] LABS: ABS Eosinophils 0.1 10^3/ul (0-0.6); ABS Lymphocytes 1.6 10^3/ul (1.0-4.8); ABS Neutrophils 5.1 10^3/ul (1.5-7.7); Hematocrit 40 % (42-52); Hemoglobin 13.7 g/dL (14.0-18.0); Lymphocyte % 20.8 %; Mean Corpuscular HGB Conc 34 g/dL (31-36); Mean Corpuscular Hemoglobin 31 pg (27-31); Mean Corpuscular Volume 92 fL (80-94); Platelet Count 121 10^3/uL (150-450); Red Blood Count 4.37 10^6 /uL (4.18-5.48); Red Cell Distribution Width 14 % (10-15); White Blood Count 7.8 10^3/uL (3.5-10.8)
[2020-02-04 01:32] LABS: BUN/Creatinine Ratio 13.8 (8-20); Calcium 9.4 mg/dL (8.6-10.3); EGFR African American 80.5 (>60); EGFR Non-African American 66.5 (>60); Magnesium 1.9 mg/dL (1.9-2.7); Potassium 3.8 mmol/L (3.5-5.0)
[2020-02-04 05:42] LABS: ABS Eosinophils 0.1 10^3/ul (0-0.6); ABS Lymphocytes 1.4 10^3/ul (1.0-4.8); ABS Monocytes 0.9 10^3/ul (0-0.8); Eosinophil % 1.2 %; Hematocrit 41 % (42-52); Hemoglobin 13.9 g/dL (14.0-18.0); Lymphocyte % 19.3 %; Mean Corpuscular HGB Conc 34 g/dL (31-36); Mean Corpuscular Hemoglobin 32 pg (27-31); Mean Corpuscular Volume 93 fL (80-94); Mean Platelet Volume 8.8 fL (7.4-10.4); Platelet Count 112 10^3/uL (150-450); Red Blood Count 4.42 10^6 /uL (4.18-5.48); Red Cell Distribution Width 15 % (10-15); White Blood Count 7.4 10^3/uL (3.5-10.8)
[2020-02-04 05:51] LABS: Calcium 9.3 mg/dL (8.6-10.3); Potassium 3.9 mmol/L (3.5-5.0)
[2020-02-04 05:57] LABS: BUN/Creatinine Ratio 14.7 (8-20); EGFR African American 86.9 (>60); EGFR Non-African American 71.8 (>60)
[2020-02-04] MEDS: Heparin VIAL(*) 5000 UNITS/ML VIAL (FIVE THOUSAND) IV SCH (06:03)
[2020-02-04 06:33] LABS: Urine Appearance Clear; Urine Bilirubin Negative (Negative); Urine Blood 1+ (Negative); Urine Color Yellow; Urine Glucose Negative (Negative); Urine Ketones Negative (Negative); Urine Nitrite Negative (Negative); Urine Protein Negative (Negative); Urine Specific Gravity 1.026 (1.010-1.030); Urine Urobilinogen Negative (Negative)
[2020-02-04 07:02] LABS: Urine Bacteria Absent (Absent); Urine Red Blood Cell 2+(6-10/hpf) (Absent); Urine Squamous Epithelial Cell Present (Absent); Urine White Blood Cell Trace(0-5/hpf) (Absent)
[2020-02-04] MEDS: Timolol 0.25% OPHTH.SOLN* BTL BOTH EYES SCH ×2 (08:05→20:04)
[2020-02-04] MEDS: Furosemide TAB* 20 MG PO SCH (08:09)
[2020-02-04] MEDS: Atenolol TAB* 50 MG PO SCH (08:10)
[2020-02-04] MEDS: Acetaminophen TAB* 325 MG PO PRN (08:10)
[2020-02-04] MEDS: Ticagrelor* 90 MG TAB PO SCH ×2 (08:10→20:03)
[2020-02-04] MEDS: Heparin DRIP 25,000 UNITS(*) 25,000 UNITS/500 ML BAG IV SCH (12:20)
--- NOTE | 2020-02-04 13:33 | PN ---
Subjective Date of Service: 02/04/20 Interval History: Mr. Hatch is feeling fine this morning. He offers no complaints. He remembers being told last night that he had a fever, but felt fine at that time. Denies CP, SOB, cough, diaphoresis. No concerns from nursing. Family History: Unchanged from Admission Social History: Unchanged from Admission Past Medical History: Unchanged from Admission Objective Active Medications: Acetaminophen (Tylenol Tab*) 650 mg PO Q4H PRN MILD PAIN or TEMP > 100.4 Al Hydrox/Mg Hydrox/Simethicone (Maalox Plus*) 30 ml PO Q6H PRN INDIGESTION Aspirin (Aspirin 81 Mg Chew Tab*) 81 mg PO BEDTIME WIL Atenolol (Tenormin Tab*) 50 mg PO DAILY WIL Atorvastatin Calcium (Lipitor*) 80 mg PO 1700 WIL Furosemide (Lasix Tab*) 60 mg PO DAILY WIL Heparin Sodium (Porcine) (Heparin Vial(*)) 0 units IV .PER PROTOCOL WIL Hydralazine HCl (Apresoline Iv*) 5 mg IV SLOW PU Q6H PRN SYSTOLIC BP GREATER THAN Heparin Sodium/Dextrose (Heparin Drip 25,000 Units(*)) 25,000 units in 500 mls @ 0 mls/hr IV PER RATE WIL; Protocol Azithromycin 250 mg/ Sodium (Chloride) 250 mls @ 250 mls/hr IVPB Q24H WIL Ceftriaxone Sodium 1 gm/ (Sodium Chloride) 50 mls @ 100 mls/hr IVPB Q24H WIL Lisinopril (Prinivil Tab*) 40 mg PO DAILY@2100 WIL Niacin (Niaspan Er Cap*) 500 mg PO BEDTIME WIL Nitroglycerin (Nitroglycerin Tab 0.4 Mg*) 0.4 mg SL Q5M PRN ANGINA Ondansetron HCl (Zofran Inj*) 4 mg IV Q4H PRN NAUSEA/VOMITING Senna (Senokot 8.6 Mg Tab*) 1 tab PO BID PRN CONSTIPATION Ticagrelor (Brilinta*) 90 mg PO BID WIL Timolol Maleate (Timoptic Ophth.Soln 0.25%) 1 drop BOTH EYES BID [facility] Vital Signs - 8 hr 02/04/20 02/04/20 02/04/20 07:05 07:15 11:15 Temperature 97.9 F 98.0 F Pulse Rate 102 84 Respiratory 20 18 20 Rate Blood Pressure 153/89 144/82 (mmHg) O2 Sat by Pulse 97 98 Oximetry Oxygen Devices in Use Now: None Appearance: Elderly male sitting in chair in NAD Ears/Nose/Mouth/Throat: Mucous Membranes Moist Neck: NL Appearance and Movements; NL JVP, Trachea Midline Respiratory: Symmetrical Chest Expansion and Respiratory Effort, Clear to Auscultation Cardiovascular: NL Sounds; No Murmurs; No JVD, RRR Abdominal: NL Sounds; No Tenderness; No Distention Extremities: - - Mild nonpitting BLE Neurological: Alert and Oriented x 3 Lines/Tubes/Other Access: Clean, Dry and Intact Peripheral IV Nutrition: Taking PO's Result Diagrams: 02/04/20 05:33 02/04/20 05:33 Assess/Plan/Problems-Billing Assessment: Mr. Hatch is a 74 yo M with PMH of CAD s/p CABG and stent, prostate cancer s/p radiation, HLD, HTN, JOSTIN; presented to the ED with c/o CP and was found to have an elevated troponin, concerning for NSTEMI. - Patient Problems (1) NSTEMI (non-ST elevated myocardial infarction) Code(s): I21.4 - NON-ST ELEVATION (NSTEMI) MYOCARDIAL INFARCTION Comment: - Chest pain on presentation, resolved after nitro - Trop peaked at 18.49 - EKG unchanged from prior - Echo was a poor study, but showed EF 50-55%, wall motion abnormalities could not be excluded - Appreciate Cardiology consult - Cath today showing 2 lesions needing stenting, cath report to follow; repeat cath on Monday for stenting - Continue heparin gtt, Brilinta, aspirin (2) Pneumonia Code(s): J18.9 - PNEUMONIA, UNSPECIFIED ORGANISM Comment: - CXR on admission unremarkable, but repeat CXR 02/02 showing patchy airspace disease in the left midlung - No respiratory symptoms, but will treat d/t sepsis criteria - Check Legionella and Strep pneumo antigens - Start azithroymcin, ceftriaxone (3) Sepsis Comment: - Resolved - Met criteria evening of 01/05 with fever and tachypnea - Source presumed to be pneumonia (4) JESSA (acute kidney injury) Code(s): N17.9 - ACUTE KIDNEY FAILURE, UNSPECIFIED Comment: - Present on admission, now resolved (5) Hypertension Code(s): I10 - ESSENTIAL (PRIMARY) HYPERTENSION Comment: - Isolated hypertensive readings - Continue lisinopril, atenolol (6) Peripheral edema Code(s): R60.9 - EDEMA, UNSPECIFIED Comment: - Chronic - Continue furosemide (7) Hyperlipidemia Code(s): E78.5 - HYPERLIPIDEMIA, UNSPECIFIED Comment: - Continue simvastatin, niacin (8) DVT prophylaxis Code(s): Z29.9 - ENCOUNTER FOR PROPHYLACTIC MEASURES, UNSPECIFIED Comment: - Heparin gtt (9) Full code status Code(s): Z78.9 - OTHER SPECIFIED HEALTH STATUS Comment: Status and Disposition: Inpatient. 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 Anticipate d/c home when medically stable. Attending: Celena Mckeon
[2020-02-04] MEDS ORDERED: diPHENhydraMINE PO* 25 MG PO PRN (13:47)
[2020-02-04] MEDS ORDERED: Diazepam TAB(*) 5 MG PO PRN (13:47)
[2020-02-04] MEDS: cefTRIAXone(*) 1 GM in NS 0.9% 50 ML* 50 ML IVPB SCH (14:14)
[2020-02-04] MEDS: Azithromycin IV(*) 250 MG in NS 0.9% 250 ML* 250 ML IVPB SCH (15:14)
[2020-02-04 15:44] LABS: C Reactive Protein 156.33 mg/L (<8.01)
[2020-02-04] MEDS: Atorvastatin* 80 MG TAB PO SCH (16:12)
--- NOTE | 2020-02-04 17:33 | CONSULT ---
Subjective Date of Service: 02/04/20 Interval History: Mr. Hatch is a 74 yo male with PMH significant for CAD s/p 3 vessel CABG, prostate CA s/p radiation, HLD, HTN, JOSTIN, thoracic aortic ectasia, chronic LE edema, and P afib; Who presented to the emergency room with complaints of chest pain. He was admitted to the hospital for NSTEMI and JESSA. He presented to the hospital with a known wound to the right LE. He reports that the wound developed 3 weeks ago when he hit his leg on a car door. He has been treating the wound with ABX ointment at home. Patient seen ad examined at bedside. Verbal consent obtained for wound consult and photograph. Family History: Unchanged from Admission Social History: Unchanged from Admission Past Medical History: Unchanged from Admission Review of Systems - Measurements Intake and Output: Intake and Output Last 24 Hours 02/02/20 02/03/20 02/04/20 02/05/20 06:59 06:59 06:59 06:59 Intake Total 2153.1 1496 716.5 894 Output Total 0 400 1075 Balance 2153.1 1496 316.5 -181 Intake: IV Fluids 100 192 200 NS 100 192 Heparin 733.1 584 279.5 177 Oral 1320 720 237 717 Output: Urine 0 400 1075 Other: Estimated Void Medium # Bowel Movements 1 1 Estimated Stool Amount Medium # Voids 2 3 1 1 - Review of Systems Constitutional Symptoms: Negative: Fever, Other - Chills Dermatology: Positive: Other - Wound to right LE due to trauma Objective Active Medications: Acetaminophen (Tylenol Tab*) 650 mg PO Q4H PRN Reason: MILD PAIN or TEMP > 100.4 Al Hydrox/Mg Hydrox/Simethicone (Maalox Plus*) 30 ml PO Q6H PRN Reason: INDIGESTION Aspirin (Aspirin 81 Mg Chew Tab*) 81 mg PO BEDTIME WIL Atenolol (Tenormin Tab*) 50 mg PO DAILY WIL Atorvastatin Calcium (Lipitor*) 80 mg PO 1700 WIL Diazepam (Valium Tab(*)) 2.5 mg PO ONCE PRN Reason: normalizer to Meteorological Technician Diphenhydramine HCl (Benadryl Po*) 25 mg PO ONCE PRN Reason: normalizer to Meteorological Technician Furosemide (Lasix Tab*) 60 mg PO DAILY WIL Heparin Sodium (Porcine) (Heparin Vial(*)) 0 units IV .PER PROTOCOL [facility] Hydralazine HCl (Apresoline Iv*) 5 mg IV SLOW PU Q6H PRN Reason: SYSTOLIC BP GREATER THAN: Heparin Sodium/Dextrose (Heparin Drip 25,000 Units(*)) 25,000 units in 500 mls @ 0 mls/hr IV PER RATE WIL; Azithromycin 250 mg/ Sodium (Chloride) 250 mls @ 250 mls/hr IVPB Q24H WIL Ceftriaxone Sodium 1 gm/ (Sodium Chloride) 50 mls @ 100 mls/hr IVPB Q24H [facility] Sodium Chloride (Ns 0.9% 1000 Ml) 1,000 mls @ 100 mls/hr IV .per rate [facility] Lisinopril (Prinivil Tab*) 40 mg PO DAILY@2100 [facility] Niacin (Niaspan Er Cap*) 500 mg PO BEDTIME [facility] Nitroglycerin (Nitroglycerin Tab 0.4 Mg*) 0.4 mg SL Q5M PRN Reason: ANGINA Ondansetron HCl (Zofran Inj*) 4 mg IV Q4H PRN Reason: NAUSEA/VOMITING Senna (Senokot 8.6 Mg Tab*) 1 tab PO BID PRN Reason: CONSTIPATION Ticagrelor (Brilinta*) 90 mg PO BID [facility] Timolol Maleate (Timoptic Ophth.Soln 0.25%) 1 drop BOTH EYES BID [facility] Vital Signs - 8 hr 02/04/20 02/04/20 11:15 14:59 Temperature 98.0 F 98.6 F Pulse Rate 84 81 Respiratory 20 24 Rate Blood Pressure 144/82 140/78 (mmHg) O2 Sat by Pulse 98 100 Oximetry Oxygen Devices in Use Now: None Appearance: NAD, laying in bed Ears/Nose/Mouth/Throat: Mucous Membranes Moist Respiratory: Symmetrical Chest Expansion and Respiratory Effort Extremities: - - 1+ DP pulse on the right Skin: - - See skin note below Neurological: Alert and Oriented x 3 Nutrition: Taking PO's Result Diagrams: 02/08/20 05:45 02/07/20 10:03 Additional Lab and Data: Above labs were pulled into the note, when the note was edited prior to signing. See below for labs from day of consultation. Laboratory Tests 02/01/20 02/02/20 02/04/20 06:04 05:34 05:33 Sodium 136 Potassium 3.9 Chloride 106 Carbon Dioxide 21 L BUN 15 Creatinine 1.02 Glucose 111 H Hemoglobin A1c 5.3 Total Protein 6.4 Albumin 3.8 02/04/20 05:33 WBC 7.4 Hgb 13.9 L Hct 41 L Plt Count 112 L Diagnostic Imagin. Exam Date: 12/18/15 - VL ANK/BRACHIAL INDICES Right: Value (SBP) Index Brachial: 151 Posterior tibialis: 180 1.19 Dorsalis pedis: 182 1.21 Left: Value (SBP) Index Brachial: 140 Posterior tibialis: 168 1.11 Dorsalis pedis: 167 1.11 Doppler waveforms: In the interrogated lower extremity arteries, Doppler waveforms are triphasic in all distributions except the left dorsalis pedis which is biphasic. Volume pulse recordings: VPR amplitudes are symmetric bilaterally. IMPRESSION: No evidence of claudication or significant arterial disease by vascular ultrasound standards. Skin Deviation Note - Skin Deviation Findings Right anterior lower leg - There is a wound that measures 3 cm x 2 cm x 0.1 cm. The wound base is 50% red granulation tissue and 50% black necrotic crust. The surrounding skin is intact. There is a scant amount of serosang drainage. Wound Problem/Plan Assessment: Mr. Hatch is a 74 yo male with PMH significant for CAD s/p 3 vessel CABG, prostate CA s/p radiation, HLD, HTN, JOSTIN, obesity, thoracic aortic ectasia, chronic LE edema, and P afib; Who presented to the emergency room with complaints of chest pain. He was admitted to the hospital for NSTEMI and JESSA. He presented to the hospital with a known wound to the right LE. 1. Right LE wound, secondary to trauma. Recommend applying a piece of xeroform to the area, followed by gauze and rolled gauze, change daily. If drainage increased, apply calcium alginate in place of xeroform and change every 3 days. Consider updating ABIs. Refer to the wound clinic at discharge. 2. CAD. S/P NSTEMI, currently on Aspirin and Heparin gtt, this may affect wound healing. 3. Morbid Obesity. BMI 47.5. 4. Nutrition. Recommend meeting minimal nutrition requirements to assist with wound healing (Protein 1.3-1.5 grams/kg per day and Calories 30-35 kcal/kg per day (based on ideal body weight)). Heart Healthy Diet. 5. Code Status. Full Code Status. 6. Disposition. Inpatient, disposition per primary medicine team. TIME SPENT: Time for this wound consultation was 20 minutes and 10 minutes was spent with the patient discussing his past medical history; removing old dressing; assessing, measuring, and photographing the wound, and reapplying a new dressing. Is Patient a Wound Clinic Patient: No Comment: Has in the past, but not recently Attending: Carol Santana
[2020-02-04] MEDS: Niacin ER CAP* 500 MG CAP.ER PO SCH (20:03)
[2020-02-04] MEDS: Lisinopril TAB* 10 MG PO SCH (20:03)
[2020-02-04] MEDS: Aspirin 81 mg CHEW TAB* 81 MG TAB.CHEW PO SCH (20:03)
[2020-02-05] MEDS: Heparin DRIP 25,000 UNITS(*) 25,000 UNITS/500 ML BAG IV SCH (06:11)
[2020-02-05 06:37] LABS: Calcium 8.9 mg/dL (8.6-10.3); Potassium 3.7 mmol/L (3.5-5.0)
[2020-02-05 06:42] LABS: BUN/Creatinine Ratio 15.7 (8-20); EGFR African American 81.3 (>60); EGFR Non-African American 67.2 (>60)
[2020-02-05] MEDS ORDERED: NS 0.9% 1000 ML** 1,000 ML IV SCH ×2 (07:00→13:45)
[2020-02-05] MEDS: Furosemide TAB* 20 MG PO SCH (08:16)
[2020-02-05] MEDS: Atenolol TAB* 50 MG PO SCH (08:37)
[2020-02-05] MEDS: Ticagrelor* 90 MG TAB PO SCH ×2 (08:38→21:30)
--- NOTE | 2020-02-05 08:39 | PN ---
Subjective Date of Service: 02/05/20 Interval History: Mr. Hatch is feeling well this morning. He offers no complaints. Had an uneventful night. No further fevers. Denies SOB or cough. He did not want to have any clear liquids this morning before the cath. Still no recurrence in CP. No concerns from nursing. Family History: Unchanged from Admission Social History: Unchanged from Admission Past Medical History: Unchanged from Admission Objective Active Medications: Acetaminophen (Tylenol Tab*) 650 mg PO Q4H PRN MILD PAIN or TEMP > 100.4 Al Hydrox/Mg Hydrox/Simethicone (Maalox Plus*) 30 ml PO Q6H PRN INDIGESTION Aspirin (Aspirin 81 Mg Chew Tab*) 81 mg PO BEDTIME WIL Atenolol (Tenormin Tab*) 50 mg PO DAILY WIL Atorvastatin Calcium (Lipitor*) 80 mg PO 1700 WIL Diazepam (Valium Tab(*)) 2.5 mg PO ONCE PRN manager battery to Electrical Line Mechanic Diphenhydramine HCl (Benadryl Po*) 25 mg PO ONCE PRN manager battery to Electrical Line Mechanic Furosemide (Lasix Tab*) 60 mg PO DAILY WIL Heparin Sodium (Porcine) (Heparin Vial(*)) 0 units IV .PER PROTOCOL WIL Hydralazine HCl (Apresoline Iv*) 5 mg IV SLOW PU Q6H PRN SYSTOLIC BP GREATER THAN Heparin Sodium/Dextrose (Heparin Drip 25,000 Units(*)) 25,000 units in 500 mls @ 0 mls/hr IV PER RATE WIL; Protocol Azithromycin 250 mg/ Sodium (Chloride) 250 mls @ 250 mls/hr IVPB Q24H WIL Ceftriaxone Sodium 1 gm/ (Sodium Chloride) 50 mls @ 100 mls/hr IVPB Q24H WIL Sodium Chloride (Ns 0.9% 1000 Ml) 1,000 mls @ 100 mls/hr IV .per rate WIL Lisinopril (Prinivil Tab*) 40 mg PO DAILY@2100 WIL Niacin (Niaspan Er Cap*) 500 mg PO BEDTIME WIL Nitroglycerin (Nitroglycerin Tab 0.4 Mg*) 0.4 mg SL Q5M PRN ANGINA Ondansetron HCl (Zofran Inj*) 4 mg IV Q4H PRN NAUSEA/VOMITING Senna (Senokot 8.6 Mg Tab*) 1 tab PO BID PRN CONSTIPATION Ticagrelor (Brilinta*) 90 mg PO BID WIL Timolol Maleate (Timoptic Ophth.Soln 0.25%) 1 drop BOTH EYES BID WIL Vital Signs - 8 hr 02/05/20 02/05/20 03:15 07:15 Temperature 99.1 F 98.6 F Pulse Rate 111 109 Respiratory 20 20 Rate Blood Pressure 133/82 149/79 (mmHg) O2 Sat by Pulse 96 97 Oximetry Oxygen Devices in Use Now: None Appearance: Elderly male sitting in chair in NAD Ears/Nose/Mouth/Throat: Mucous Membranes Moist Neck: NL Appearance and Movements; NL JVP, Trachea Midline Respiratory: Symmetrical Chest Expansion and Respiratory Effort, Clear to Auscultation Cardiovascular: NL Sounds; No Murmurs; No JVD Abdominal: NL Sounds; No Tenderness; No Distention Extremities: - - Mild pitting BLE Neurological: Alert and Oriented x 3 Lines/Tubes/Other Access: Clean, Dry and Intact Peripheral IV Nutrition: Taking PO's Result Diagrams: 02/05/20 08:33 02/05/20 05:40 Assess/Plan/Problems-Billing Assessment: Mr. Hatch is a 74 yo M with PMH of CAD s/p CABG and stent, prostate cancer s/p radiation, HLD, HTN, JOSTIN; presented to the ED with c/o CP and was found to have an elevated troponin, concerning for NSTEMI. - Patient Problems (1) NSTEMI (non-ST elevated myocardial infarction) Code(s): I21.4 - NON-ST ELEVATION (NSTEMI) MYOCARDIAL INFARCTION Comment: - Chest pain on presentation, resolved after nitro - Trop peaked at 18.49 - EKG unchanged from prior - Echo was a poor study, but showed EF 50-55%, wall motion abnormalities could not be excluded - Appreciate Cardiology consult - Cath today showing 2 lesions needing stenting, cath report to follow; repeat cath today - Continue heparin gtt, Brilinta, aspirin (2) Pneumonia Code(s): J18.9 - PNEUMONIA, UNSPECIFIED ORGANISM Comment: - No SOB or cough and not requiring oxygen - CXR on admission unremarkable, but repeat CXR 02/02 showing patchy airspace disease in the left midlung - No respiratory symptoms, but will treat d/t sepsis - Negative Legionella and Strep pneumo antigens - From a respiratory standpoint, the patient is stable to undergo cath today - Continue azithroymcin, ceftriaxone (3) Sepsis Comment: - Resolved - Met criteria evening of 01/05 with fever and tachypnea - Source presumed to be pneumonia (4) JESSA (acute kidney injury) Code(s): N17.9 - ACUTE KIDNEY FAILURE, UNSPECIFIED Comment: - Present on admission, now resolved (5) Hypertension Code(s): I10 - ESSENTIAL (PRIMARY) HYPERTENSION Comment: - Normotensive - Continue lisinopril, atenolol (6) Peripheral edema Code(s): R60.9 - EDEMA, UNSPECIFIED Comment: - Chronic - Continue furosemide (7) Hyperlipidemia Code(s): E78.5 - HYPERLIPIDEMIA, UNSPECIFIED Comment: - Continue simvastatin, niacin (8) DVT prophylaxis Code(s): Z29.9 - ENCOUNTER FOR PROPHYLACTIC MEASURES, UNSPECIFIED Comment: - Heparin gtt (9) Full code status Code(s): Z78.9 - OTHER SPECIFIED HEALTH STATUS Comment: Status and Disposition: Inpatient. 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 Anticipate d/c home when medically stable. Attending: Daniel Ruffin
[2020-02-05 08:41] LABS: ABS Eosinophils 0.2 10^3/ul (0-0.6); ABS Lymphocytes 1.3 10^3/ul (1.0-4.8); ABS Monocytes 0.8 10^3/ul (0-0.8); ABS Neutrophils 4.3 10^3/ul (1.5-7.7); Eosinophil % 2.5 %; Hematocrit 39 % (42-52); Hemoglobin 13.5 g/dL (14.0-18.0); Lymphocyte % 20.2 %; Mean Corpuscular HGB Conc 34 g/dL (31-36); Mean Corpuscular Hemoglobin 31 pg (27-31); Mean Corpuscular Volume 92 fL (80-94); Mean Platelet Volume 8.3 fL (7.4-10.4); Platelet Count 139 10^3/uL (150-450); Red Blood Count 4.29 10^6 /uL (4.18-5.48); Red Cell Distribution Width 15 % (10-15); White Blood Count 6.6 10^3/uL (3.5-10.8)
[2020-02-05] MEDS ORDERED: fentaNYL* 50 MCG/ML 2 ML VIAL (100 MCG VIAL) ONE (11:10)
[2020-02-05] MEDS ORDERED: Midazolam* 1 MG/ML 5 ML VIAL (5 MG) ONE (11:10)
[2020-02-05] MEDS ORDERED: Heparin(*) 1000 UNIT/ML 10 ML VIAL CATH LAB IV ONE (11:10)
[2020-02-05] MEDS ORDERED: VERAPAMIL 2.5 MG/ML 2 ML VIAL ** 5 mg/2 ml ONE (11:10)
[2020-02-05] MEDS ORDERED: Adenosine* 3 MG/ML VIAL ONE (11:11)
[2020-02-05] MEDS ORDERED: nitroGLYCERIN DRIP* 25,000 MCG/250 ML BTL ONE (11:11)
[2020-02-05] MEDS ORDERED: Heparin 2 UNITS/ML IVPREMIX* 2,000 ML IV ONE (11:11)
[2020-02-05] MEDS ORDERED: Lidocaine 1% INJ* 10 MG/ML 30 ML SDV ONE (11:11)
[2020-02-05] MEDS: Timolol 0.25% OPHTH.SOLN* BTL BOTH EYES SCH ×2 (11:12→21:34)
[2020-02-05] MEDS ORDERED: NitroPRUSSide* 25 MG/ML 2 ML VIAL IV ONE (11:18)
[2020-02-05] MEDS ORDERED: Iohexol 350 (CONTRAST) 200 ML MDV IV ONE (11:39)
[2020-02-05] MEDS ORDERED: Iodixanol 320 (CONTRAST) 100 ML SDV ONE (11:39)
[2020-02-05] MEDS ORDERED: Heparin 2 UNITS/ML IVPREMIX* 1,000 ML IV ONE (13:00)
[2020-02-05] MEDS ORDERED: Nitroglycerin TAB 0.4 MG* 0.4 MG TAB SL PRN (13:44)
[2020-02-05] MEDS: Azithromycin IV(*) 250 MG in NS 0.9% 250 ML* 250 ML IVPB SCH (14:24)
[2020-02-05] MEDS: cefTRIAXone(*) 1 GM in NS 0.9% 50 ML* 50 ML IVPB SCH (14:30)
[2020-02-05] MEDS ORDERED: Magnesium Sulfate 2 GM IV* 2 GM/50 ML BAG IVPB ONE (16:00)
[2020-02-05] MEDS ORDERED: Potassium Chlor TAB* 20 MEQ TAB.ER PO ONE (16:00)
--- NOTE | 2020-02-05 16:09 | PN ---
Subjective Date of Service: 02/05/20 - CC: s/p stent, in atrial flutter Interval History: The patient is s/p PTCA to SVG (Dr Valentin). He denies CP, SOB, racing heart or groin pain. Medications Active Medications: Acetaminophen (Tylenol Tab*) 650 mg PO Q4H PRN PRN Reason: MILD PAIN or TEMP > 100.4 Last Admin: 02/04/20 08:10 Dose: 650 mg Al Hydrox/Mg Hydrox/Simethicone (Maalox Plus*) 30 ml PO Q6H PRN PRN Reason: INDIGESTION Aspirin (Aspirin 81 Mg Chew Tab*) 81 mg PO BEDTIME [facility] Last Admin: 02/04/20 20:03 Dose: 81 mg Atenolol (Tenormin Tab*) 50 mg PO DAILY [facility] Last Admin: 02/05/20 08:37 Dose: 50 mg Atorvastatin Calcium (Lipitor*) 80 mg PO 1700 [facility] Last Admin: 02/04/20 16:12 Dose: 80 mg Furosemide (Lasix Tab*) 60 mg PO DAILY [facility] Last Admin: 02/05/20 08:16 Dose: Not Given Hydralazine HCl (Apresoline Iv*) 5 mg IV SLOW PU Q6H PRN PRN Reason: SYSTOLIC BP GREATER THAN: Azithromycin 250 mg/ Sodium (Chloride) 250 mls @ 250 mls/hr IVPB Q24H [facility] Last Admin: 02/05/20 14:24 Dose: 250 mls/hr Ceftriaxone Sodium 1 gm/ (Sodium Chloride) 50 mls @ 100 mls/hr IVPB Q24H [facility] Last Admin: 02/05/20 14:30 Dose: 100 mls/hr Sodium Chloride (Ns 0.9% 1000 Ml) 1,000 mls @ 50 mls/hr IV .per rate [facility] Lisinopril (Prinivil Tab*) 40 mg PO DAILY@2100 [facility] Last Admin: 02/04/20 20:03 Dose: 40 mg Niacin (Niaspan Er Cap*) 500 mg PO BEDTIME [facility] Last Admin: 02/04/20 20:03 Dose: 500 mg Nitroglycerin (Nitroglycerin Tab 0.4 Mg*) 0.4 mg SL Q5M PRN PRN Reason: ANGINA Ondansetron HCl (Zofran Inj*) 4 mg IV Q4H PRN PRN Reason: NAUSEA/VOMITING Senna (Senokot 8.6 Mg Tab*) 1 tab PO BID PRN PRN Reason: CONSTIPATION Ticagrelor (Brilinta*) 90 mg PO BID [facility] Last Admin: 02/05/20 08:38 Dose: 90 mg Timolol Maleate (Timoptic Ophth.Soln 0.25%) 1 drop BOTH EYES BID [facility] Last Admin: 02/05/20 11:12 Dose: Not Given Objective Vital Signs: Temp Pulse Resp BP Pulse Ox 97.8 F 101 22 128/83 99 02/05/20 14:08 02/05/20 15:01 02/05/20 15:01 02/05/20 15:01 02/05/20 15:01 Vital Signs - 12 hr Temp Pulse Resp BP Pulse Ox 02/05/20 16:00 98.6 F 02/05/20 15:01 101 22 128/83 99 02/05/20 15:00 100 21 99 02/05/20 14:46 85 21 136/89 98 02/05/20 14:31 93 22 131/86 96 02/05/20 14:16 92 21 144/95 97 02/05/20 14:08 97.8 F 91 22 141/100 98 02/05/20 14:04 95 23 141/100 97 02/05/20 14:01 16 02/05/20 13:59 97.8 F 02/05/20 13:57 27 02/05/20 11:33 98.0 F 82 20 162/92 98 02/05/20 11:17 16 02/05/20 11:16 16 02/05/20 08:00 15 02/05/20 07:15 98.6 F 109 20 149/79 97 Oxygen Devices in Use Now: None Appearance: Super morbidly obese male lying in reverse Trandelenburg position. NAD. Eyes: No Scleral Icterus, PERRLA Ears/Nose/Mouth/Throat: Mucous Membranes Moist Neck: Trachea Midline - thick neck, no obvious increase in JVP Respiratory: Symmetrical Chest Expansion and Respiratory Effort, Clear to Auscultation - anteriorly and laterally. Cardiovascular: NL Sounds; No Murmurs; No JVD, RRR Abdominal: - - Very overweight, normal bowel sounds. Extremities: No Edema - RLE and ulceration noted, see ID note. R groin dressing on, feet warm bilaterally. Neurological: Alert and Oriented x 3, NL Muscle Strength and Tone Lines/Tubes/Other Access: Clean, Dry and Intact Peripheral IV Laboratory Results: 02/05/20 08:33 02/05/20 05:40 INR (Anticoag Therapy) 1.31 (0.82-1.09) H 02/03/20 05:50 APTT 59.8 seconds (26.0-38.0) H 02/05/20 08:33 Total Bilirubin 2.60 mg/dL (0.2-1.0) H 02/02/20 05:34 Direct Bilirubin 0.40 mg/dL (0.03-0.18) H 02/01/20 07:10 Indirect Bilirubin Not Reportable 02/01/20 06:04 AST 48 U/L (13-39) H 02/02/20 05:34 ALT 25 U/L (7-52) 02/02/20 05:34 Alkaline Phosphatase 48 U/L (34-104) 02/02/20 05:34 Total Protein 6.4 g/dL (6.4-8.9) 02/02/20 05:34 Albumin 3.8 g/dL (3.2-5.2) 02/02/20 05:34 Globulin 2.6 g/dL (2-4) 02/02/20 05:34 Albumin/Globulin Ratio 1.5 (1-3) 02/02/20 05:34 Triglycerides 145 mg/dL 02/01/20 06:04 Cholesterol 133 mg/dL 02/01/20 06:04 LDL Cholesterol 65 mg/dL 02/01/20 06:04 HDL Cholesterol 39.5 mg/dL 02/01/20 06:04 01/31/20 01/31/20 01/31/20 17:16 20:45 23:39 Troponin I 0.38 H* 6.63 H* 15.52 H* 02/01/20 02/01/20 06:04 09:27 Troponin I 18.49 H* 14.67 H* Diagnostic Imaging: Cardiac Catheterization Report HUEY KING [id number] 01/31/20 IMPRESSION: 1. Critical stenosis of proximal saphenous vein graft to the obtuse marginal with thrombus formation. 2. STERLING to the LAD is not present and likely a small atretic vessel. 3. Saphenous vein graft to the PDA is open and patent. 4. Left main and LAD are essentially without disease. 5. Second diagonal vessel with proximal 95% stenosis. RECOMMENDATIONS: The patient will be evaluated for possible intervention to his saphenous vein graft to the PDA and possibly the second diagonal vessel. Because of the high volume of IV dye and long fluoro time, this will be considered in 2 days' time. [id number]/[facility] #: [id number] <Electronically signed by Eitan Garcia MD> 02/04/20 0750 Eitan Garcia MD Dictated Date/Time: 02/03/20 1526 Transcribed Date/Time 02/03/20 1721 2 of 2 EKG Data: Admission: Sinus vs. ectopic atrial regular rhythm. 02/03/2020: Developed atrial flutter, RVR, varying rate. ECG toay 02/05/2020: Atrial flutter, atypical. Assessment/Plan 74 yo male with distant CABG, presented with NQMI and while here developed atrial flutter, atypical. CAD: -Sp stent to tight vein graft today via groin, occluder devide placed. -Continue aggressive MM -On DAPT -Tight Dx lesion not intervened on, still at risk for angina, but much smaller territory. A flutter -Was on continuous UF heparin gtt 02/03/2020 until midway through cath today. 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 -If CV's start antiarrhythmic agent. Succesful CV QT prolonged and was on Zithromax, elected not to start Sotolol Amiodarone started at low dose. Re evaluate QT in AM Stopped Zithromax, will need antibiotics re evalauted in AM, a non QT prolonging substitution can be started.
[2020-02-05] MEDS ORDERED: fentaNYL* 50 MCG/ML 5 ML VIAL (250 MCG VIAL) ONE (17:00)
[2020-02-05] MEDS ORDERED: Midazolam* 1 MG/ML 10 ML VIAL (10 MG) ONE (17:00)
[2020-02-05] MEDS: Atorvastatin* 80 MG TAB PO SCH (18:03)
[2020-02-05] MEDS ORDERED: Amiodarone TAB* 200 MG PO ONE (20:00)
--- NOTE | 2020-02-05 20:19 | CARD ---
CARDIOVERSION REPORT: DATE OF PROCEDURE: 02/05/20. PROCEDURE: Electrical cardioversion. PREPROCEDURE DIAGNOSIS: Atrial flutter. POSTPROCEDURE DIAGNOSIS: Atrial flutter. INDICATIONS: The indications, risks, and benefits were discussed with the patient and discussions ensued with Dr. Valentin as well. The patient has known coronary artery disease, arrived in sinus rhythm, and approximately 48 hours ago went into atrial flutter with intermittent rapid ventricular rate. He had been on a heparin drip since 02/03/20, through today. He underwent angioplasty, and midway through the angioplasty procedure, the heparin drip was turned off. The atrial flutter was recognized following the procedure. Interventional Cardiology does not want to reinitiate heparin until the morning , but after discussing potential for ischemic risk versus embolus risk versus staying in flutter off anticoagulant for longer period, the decision was made to proceed with cardioversion. The patient was amenable. DESCRIPTION OF PROCEDURE: The AP patches were placed on the patient. He is received Versed and fentanyl documented separately, 5 of Versed and 25 mcg of fentanyl for sedation. A time-out of procedure had been previously called. 150 joules was delivered across the chest wall with successful cardioversion from atrial flutter to normal sinus rhythm with no complications, and the patient was hemodynamically stable. CONCLUSION: Successful cardioversion from atrial flutter to normal sinus rhythm. Postprocedure, he was in sinus rhythm with occasional PVCs. [id number]/[facility] #: [id number] MTDD
[2020-02-05] MEDS: Lisinopril TAB* 10 MG PO SCH (21:30)
[2020-02-05] MEDS: Aspirin 81 mg CHEW TAB* 81 MG TAB.CHEW PO SCH (21:30)
[2020-02-05] MEDS: Niacin ER CAP* 500 MG CAP.ER PO SCH (22:59)
[2020-02-06] MEDS: NS 0.9% 1000 ML** 1,000 ML IV SCH ×2 (01:07→21:44)
[2020-02-06 05:36] LABS: ABS Eosinophils 0.1 10^3/ul (0-0.6); ABS Lymphocytes 1.2 10^3/ul (1.0-4.8); ABS Monocytes 0.7 10^3/ul (0-0.8); ABS Neutrophils 4.2 10^3/ul (1.5-7.7); Eosinophil % 1.3 %; Hematocrit 37 % (42-52); Hemoglobin 12.4 g/dL (14.0-18.0); Lymphocyte % 19.3 %; Mean Corpuscular HGB Conc 34 g/dL (31-36); Mean Corpuscular Hemoglobin 31 pg (27-31); Mean Corpuscular Volume 92 fL (80-94); Mean Platelet Volume 8.6 fL (7.4-10.4); Nucleated Red Blood Cells % 0.1; Platelet Count 162 10^3/uL (150-450); Red Blood Count 3.97 10^6 /uL (4.18-5.48); Red Cell Distribution Width 15 % (10-15); White Blood Count 6.2 10^3/uL (3.5-10.8)
[2020-02-06 05:44] LABS: BUN/Creatinine Ratio 19.8 (8-20); Calcium 8.8 mg/dL (8.6-10.3); EGFR African American 99.1 (>60); EGFR Non-African American 81.9 (>60); Potassium 4.2 mmol/L (3.5-5.0)
[2020-02-06 06:49] LABS: Albumin 3.3 g/dL (3.2-5.2); Globulin 3.3 g/dL (2-4); HDL Cholesterol 38.8 mg/dL; Magnesium 2.4 mg/dL (1.9-2.7); Total Bilirubin 2.2 mg/dL (0.2-1.0); Total Protein 6.6 g/dL (6.4-8.9)
[2020-02-06] MEDS: Furosemide TAB* 20 MG PO SCH (08:04)
[2020-02-06] MEDS: Ticagrelor* 90 MG TAB PO SCH ×2 (08:04→21:40)
[2020-02-06] MEDS: Atenolol TAB* 50 MG PO SCH (08:04)
[2020-02-06] MEDS: Timolol 0.25% OPHTH.SOLN* BTL BOTH EYES SCH ×2 (08:08→21:44)
[2020-02-06] MEDS ORDERED: Amiodarone TAB* 200 MG PO SCH (09:00)
--- NOTE | 2020-02-06 10:45 | PN ---
<Yohana Baez - Last Filed: 02/06/20 11:50> Subjective Date of Service: 02/06/20 - NSTEMI, AFL s/p CV and PCI Interval History: No events last night, patient denies chest pain, SOB. He has been up and ambulating in the room with no difficulty. Denies symptoms but is inquiring about compression stockings which he uses at home. Medications Active Medications: Acetaminophen (Tylenol Tab*) 650 mg PO Q4H PRN PRN Reason: MILD PAIN or TEMP > 100.4 Last Admin: 02/04/20 08:10 Dose: 650 mg Al Hydrox/Mg Hydrox/Simethicone (Maalox Plus*) 30 ml PO Q6H PRN PRN Reason: INDIGESTION Amiodarone HCl (Cordarone Tab*) 200 mg PO DAILY [facility] Last Admin: 02/06/20 08:05 Dose: 200 mg Aspirin (Aspirin 81 Mg Chew Tab*) 81 mg PO BEDTIME [facility] Last Admin: 02/05/20 21:30 Dose: 81 mg Atenolol (Tenormin Tab*) 50 mg PO DAILY [facility] Last Admin: 02/06/20 08:04 Dose: 50 mg Atorvastatin Calcium (Lipitor*) 80 mg PO 1700 [facility] Last Admin: 02/05/20 18:03 Dose: 80 mg Clopidogrel Bisulfate (Plavix Tab*) 300 mg PO ONCE ONE Stop: 02/06/20 20:01 Clopidogrel Bisulfate (Plavix Tab*) 75 mg PO DAILY [facility] Furosemide (Lasix Tab*) 60 mg PO DAILY [facility] Last Admin: 02/06/20 08:04 Dose: 60 mg Hydralazine HCl (Apresoline Iv*) 5 mg IV SLOW PU Q6H PRN PRN Reason: SYSTOLIC BP GREATER THAN: Ceftriaxone Sodium 1 gm/ (Sodium Chloride) 50 mls @ 100 mls/hr IVPB Q24H [facility] Last Admin: 02/05/20 14:30 Dose: 100 mls/hr Sodium Chloride (Ns 0.9% 1000 Ml) 1,000 mls @ 50 mls/hr IV .per rate [facility] Last Admin: 02/06/20 01:07 Dose: 50 mls/hr Lisinopril (Prinivil Tab*) 40 mg PO DAILY@2100 [facility] Last Admin: 02/05/20 21:30 Dose: 40 mg Niacin (Niaspan Er Cap*) 500 mg PO BEDTIME [facility] Last Admin: 02/05/20 22:59 Dose: 500 mg Nitroglycerin (Nitroglycerin Tab 0.4 Mg*) 0.4 mg SL Q5M PRN PRN Reason: ANGINA Ondansetron HCl (Zofran Inj*) 4 mg IV Q4H PRN PRN Reason: NAUSEA/VOMITING Last Admin: 02/05/20 18:58 Dose: 4 mg Senna (Senokot 8.6 Mg Tab*) 1 tab PO BID PRN PRN Reason: CONSTIPATION Timolol Maleate (Timoptic Ophth.Soln 0.25%) 1 drop BOTH EYES BID [facility] Last Admin: 02/06/20 08:08 Dose: Not Given Objective Vital Signs: Temp Pulse Resp BP Pulse Ox 98.3 F 66 22 111/74 97 02/06/20 07:31 02/06/20 09:01 02/06/20 09:01 02/06/20 09:01 02/06/20 09:01 Oxygen Devices in Use Now: None Appearance: Super morbidly obese male lying in reverse Trandelenburg position. NAD. Eyes: No Scleral Icterus, PERRLA Ears/Nose/Mouth/Throat: Mucous Membranes Moist Neck: Trachea Midline - thick neck, no obvious increase in JVP Respiratory: Symmetrical Chest Expansion and Respiratory Effort, Clear to Auscultation - anteriorly and laterally. Cardiovascular: NL Sounds; No Murmurs; No JVD, RRR Abdominal: - - Very overweight, normal bowel sounds. Extremities: No Edema - RLE and ulceration noted, see ID note. R groin dressing removed. 2+ femoral pulse, no thrill, no hematoma. non tender to palpation. Neurological: Alert and Oriented x 3, NL Muscle Strength and Tone Lines/Tubes/Other Access: Clean, Dry and Intact Peripheral IV Laboratory Results: 02/06/20 05:15 02/06/20 05:15 INR (Anticoag Therapy) 1.31 (0.82-1.09) H 02/03/20 05:50 APTT 59.8 seconds (26.0-38.0) H 02/05/20 08:33 Total Bilirubin 2.20 mg/dL (0.2-1.0) H 02/06/20 05:15 Direct Bilirubin 0.40 mg/dL (0.03-0.18) H 02/01/20 07:10 Indirect Bilirubin Not Reportable 02/01/20 06:04 AST 38 U/L (13-39) 02/06/20 05:15 ALT 37 U/L (7-52) 02/06/20 05:15 Alkaline Phosphatase 44 U/L (34-104) 02/06/20 05:15 Total Protein 6.6 g/dL (6.4-8.9) 02/06/20 05:15 Albumin 3.3 g/dL (3.2-5.2) 02/06/20 05:15 Globulin 3.3 g/dL (2-4) 02/06/20 05:15 Albumin/Globulin Ratio 1.0 (1-3) 02/06/20 05:15 Triglycerides 87 mg/dL 02/06/20 05:15 Cholesterol 99 mg/dL 02/06/20 05:15 LDL Cholesterol 43 mg/dL 02/06/20 05:15 HDL Cholesterol 38.8 mg/dL 02/06/20 05:15 01/31/20 01/31/20 01/31/20 17:16 20:45 23:39 Troponin I 0.38 H* 6.63 H* 15.52 H* 02/01/20 02/01/20 06:04 09:27 Troponin I 18.49 H* 14.67 H* Laboratory Results - last 24 hr 02/05/20 02/05/20 02/06/20 12:16 12:33 05:15 WBC RBC Hgb Hct MCV MCH MCHC RDW Plt Count MPV Neut % (Auto) Lymph % (Auto) Jasper % (Auto) Eos % (Auto) Baso % (Auto) Absolute Neuts (auto) Absolute Lymphs (auto) Absolute Monos (auto) Absolute Eos (auto) Absolute Basos (auto) Absolute Nucleated RBC Nucleated RBC % POC Activ Clotting Time 175 316 Sodium 137 Potassium 4.2 Chloride 107 Carbon Dioxide 24 Anion Gap 6 BUN 18 Creatinine 0.91 Est GFR ( Amer) 99.1 Est GFR (Non-Af Amer) 81.9 BUN/Creatinine Ratio 19.8 Glucose 96 Calcium 8.8 Magnesium 2.4 Total Bilirubin 2.20 H AST 38 ALT 37 Alkaline Phosphatase 44 Total Protein 6.6 Albumin 3.3 Globulin 3.3 Albumin/Globulin Ratio 1.0 Triglycerides 87 Cholesterol 99 LDL Cholesterol 43 HDL Cholesterol 38.8 02/06/20 05:15 WBC 6.2 RBC 3.97 L Hgb 12.4 L Hct 37 L MCV 92 MCH 31 MCHC 34 RDW 15 Plt Count 162 MPV 8.6 Neut % (Auto) 68.5 Lymph % (Auto) 19.3 Jasper % (Auto) 10.7 Eos % (Auto) 1.3 Baso % (Auto) 0.2 Absolute Neuts (auto) 4.2 Absolute Lymphs (auto) 1.2 Absolute Monos (auto) 0.7 Absolute Eos (auto) 0.1 Absolute Basos (auto) 0.0 Absolute Nucleated RBC 0.0 Nucleated RBC % 0.1 POC Activ Clotting Time Sodium Potassium Chloride Carbon Dioxide Anion Gap BUN Creatinine Est GFR ( Amer) Est GFR (Non-Af Amer) BUN/Creatinine Ratio Glucose Calcium Magnesium Total Bilirubin AST ALT Alkaline Phosphatase Total Protein Albumin Globulin Albumin/Globulin Ratio Triglycerides Cholesterol LDL Cholesterol HDL Cholesterol Diagnostic Imaging: Cardiac Catheterization Report RICHARDSAVANAHHUEY L [id number] 01/31/20 IMPRESSION: 1. Critical stenosis of proximal saphenous vein graft to the obtuse marginal with thrombus formation. 2. STERLING to the LAD is not present and likely a small atretic vessel. 3. Saphenous vein graft to the PDA is open and patent. 4. Left main and LAD are essentially without disease. 5. Second diagonal vessel with proximal 95% stenosis. RECOMMENDATIONS: The patient will be evaluated for possible intervention to his saphenous vein graft to the PDA and possibly the second diagonal vessel. Because of the high volume of IV dye and long fluoro time, this will be considered in 2 days' time. [id number]/[facility] #: [id number] <Electronically signed by Eitan Garcia MD> 02/04/20 0750 Eitan Garcia MD Dictated Date/Time: 02/03/20 1526 Transcribed Date/Time 02/03/20 1721 2 of 2 effusion. - Pulmonary arteries: Systolic pressure can not be accurately estimated. - Difficult to compared to study of 06/01/12. Study data: Transthoracic echocardiogram. Procedure: Transthoracic echocardiography was performed. Image quality was poor. The study was technically limited due to body habitus. Intravenous Definity 4 ml was administered to enhance imaging, but it was of little help. Complete 2D, spectral Doppler, and color flow Doppler. Location: Bedside. Patient status: Inpatient. Patient room number: 445-01. Rhythm: Normal sinus rhythm with PVC's. Findings Left ventricle: The cavity size is normal. Wall thickness is mildly to moderately increased. The estimated ejection fraction is 50-55%. Grossly normal left ventricle systolic function on limited parasternal imaging. Regional wall motion abnormalities cannot be excluded. Definity was used but was of little help. Left ventricular diastolic function parameters are indeterminate. Right ventricle: Not well visualized. The cavity size is moderately dilated. Systolic function is moderately reduced. Left atrium: The atrium is moderately dilated. Right atrium: Not well visualized. Mitral valve: Not well visualized. The leaflets are mildly thickened. There is no significant regurgitation. Aortic valve: Not well visualized. The leaflets are mildly thickened. There is no evidence of stenosis. There is no significant regurgitation. Tricuspid valve: Not visualized. Pulmonic valve: Not visualized. Aorta: The aorta is poorly visualized. Aortic arch: The aortic arch is not dilated. Pericardium: There is no significant pericardial effusion. Pulmonary arteries: Not visualized. Systolic pressure can not be accurately estimated. Systemic veins: Not visualized. Measurements Left ventricle Value Ref Aortic valve Value Ref EVE, LAX 5.3 cm 4.2 - Lisa diam, ED 3.0 cm ---- This report is only to be considered final once signed by the Provider(s) as displayed in the "<Electronically Signed by >" field (s). Absence of a signature indicates the report is in a draft status and still needs to be finalized. In the event this document was created by someone other than the signing Provider, the individual initiating the document will be listed in the "Entered by:" or "Dictated by:" gilmore. EKG Data: Admission: Sinus vs. ectopic atrial regular rhythm. 02/03/2020: Developed atrial flutter, RVR, varying rate. ECG 02/05/2020: Atrial flutter, atypical. ECG 02.06.20; Sinus rhythm rate 69 with inferior Q waves. QTc 428 Telemetry; Reviewed. Sinus rhythm rate 60-70's Assessment/Plan #1 NSTEMI; Troponin peaked at 18 on 02/01/20. He is s/p RANI to Proximal vein graft to OM with known residual 95% stenosis involving 2nd Diag. He denies recurrent chest pain, denies SOB. Right femoral access site intact, no hematoma , no thrill. He is on ASA 81/day in combination with Brilinta 90 BID. Given AFL It would be reasonable to have him take ASA 81/day in combination with Plavix 75mg/day and coumadin with a goal INR at most (2). His BMI is >50 thus, DOAC use is not known. He is aware of CVA risk given annual chads Vasc is 3. he is hesitant to start Coumadin and would like to think about it. For now will continue ASA 81/day and Brilinta 90 BID until he decides. #2 h/o paroxysmal typical AFL; s/p CV 02/05/20. In NSR today. QTc yesterday was prolonged ( on azithromycin) thus he was only started on Amiodarone 200mg/day. Will increase Amio to 200mg PO BID x7 days then reduce to 200mg/day there after. He will need close evaluation of QTc. Keep K+>4, Mag>2. Avoid other QTc prolonging agents. Chads Vasc is 3. Please refer to above #1 about OAC . #3 h/o CAD with prior CABG; On statin, bblocker and antiplatlet therapy. Refer to above #1. #4 Presumed PNA; now on Ceftriaxone. Avoid agents such as Azithromycin given potential for QTc prolongation now that he is on Amiodarone therapy. Primary team managing. #5 Disposition pending course. From a cardiac perspective he is stable to go upstairs if he tolerates walking the halls with no ectopy or symptoms. d/w Dr. Davila who agrees with above assessment and plan. Patient to decide about going on Coumadin therapy. He is aware we would need to transition Brilinta to Plavix and would ideally do triple therapy for 30 days then after 30 days stop ASA but continue Plavix and Coumadin. Attending: Idris Davila <Idris Davila - Last Filed: 02/06/20 15:54> Medications Active Medications: Acetaminophen (Tylenol Tab*) 650 mg PO Q4H PRN PRN Reason: MILD PAIN or TEMP > 100.4 Last Admin: 02/04/20 08:10 Dose: 650 mg Al Hydrox/Mg Hydrox/Simethicone (Maalox Plus*) 30 ml PO Q6H PRN PRN Reason: INDIGESTION Amiodarone HCl (Cordarone Tab*) 200 mg PO BID [facility] Stop: 02/13/20 20:59 Amiodarone HCl (Cordarone Tab*) 200 mg PO DAILY [facility] Aspirin (Aspirin 81 Mg Chew Tab*) 81 mg PO BEDTIME [facility] Last Admin: 02/05/20 21:30 Dose: 81 mg Atenolol (Tenormin Tab*) 50 mg PO DAILY [facility] Last Admin: 02/06/20 08:04 Dose: 50 mg Atorvastatin Calcium (Lipitor*) 80 mg PO 1700 [facility] Last Admin: 02/05/20 18:03 Dose: 80 mg Furosemide (Lasix Tab*) 60 mg PO DAILY [facility] Last Admin: 02/06/20 08:04 Dose: 60 mg Hydralazine HCl (Apresoline Iv*) 5 mg IV SLOW PU Q6H PRN PRN Reason: SYSTOLIC BP GREATER THAN: Ceftriaxone Sodium 1 gm/ (Sodium Chloride) 50 mls @ 100 mls/hr IVPB Q24H [facility] Last Admin: 02/06/20 13:33 Dose: 100 mls/hr Sodium Chloride (Ns 0.9% 1000 Ml) 1,000 mls @ 50 mls/hr IV .per rate [facility] Last Admin: 02/06/20 01:07 Dose: 50 mls/hr Lisinopril (Prinivil Tab*) 40 mg PO DAILY@2100 [facility] Last Admin: 02/05/20 21:30 Dose: 40 mg Niacin (Niaspan Er Cap*) 500 mg PO BEDTIME [facility] Last Admin: 02/05/20 22:59 Dose: 500 mg Nitroglycerin (Nitroglycerin Tab 0.4 Mg*) 0.4 mg SL Q5M PRN PRN Reason: ANGINA Senna (Senokot 8.6 Mg Tab*) 1 tab PO BID PRN PRN Reason: CONSTIPATION Ticagrelor (Brilinta*) 90 mg PO BID [facility] Timolol Maleate (Timoptic Ophth.Soln 0.25%) 1 drop BOTH EYES BID [facility] Last Admin: 02/06/20 08:08 Dose: Not Given Objective Vital Signs: Temp Pulse Resp BP Pulse Ox 98.0 F 66 15 115/72 95 02/06/20 15:20 02/06/20 15:00 02/06/20 15:00 02/06/20 13:31 02/06/20 15:00 Laboratory Results: 02/06/20 05:15 02/06/20 05:15 INR (Anticoag Therapy) 1.31 (0.82-1.09) H 02/03/20 05:50 APTT 59.8 seconds (26.0-38.0) H 02/05/20 08:33 Total Bilirubin 2.20 mg/dL (0.2-1.0) H 02/06/20 05:15 Direct Bilirubin 0.40 mg/dL (0.03-0.18) H 02/01/20 07:10 Indirect Bilirubin Not Reportable 02/01/20 06:04 AST 38 U/L (13-39) 02/06/20 05:15 ALT 37 U/L (7-52) 02/06/20 05:15 Alkaline Phosphatase 44 U/L (34-104) 02/06/20 05:15 Total Protein 6.6 g/dL (6.4-8.9) 02/06/20 05:15 Albumin 3.3 g/dL (3.2-5.2) 02/06/20 05:15 Globulin 3.3 g/dL (2-4) 02/06/20 05:15 Albumin/Globulin Ratio 1.0 (1-3) 02/06/20 05:15 Triglycerides 87 mg/dL 02/06/20 05:15 Cholesterol 99 mg/dL 02/06/20 05:15 LDL Cholesterol 43 mg/dL 02/06/20 05:15 HDL Cholesterol 38.8 mg/dL 02/06/20 05:15 TSH 1.98 mcIU/mL (0.34-5.60) 02/06/20 10:17 01/31/20 01/31/20 01/31/20 17:16 20:45 23:39 Troponin I 0.38 H* 6.63 H* 15.52 H* 02/01/20 02/01/20 06:04 09:27 Troponin I 18.49 H* 14.67 H* Assessment/Plan Points of Discussion: Patient seen and discussed with Dr. Barbie Lopez. Discussed options for anticoagulation given risks of CVA in setting of recent CV vs risk of bleeding on triple rx. Patient considering options and will decide on whether to proceed with coumadin. If so, would suggest iv heparin while awaiting therapeutic INR due to potential hypercoaguable state during initial doses of coumadin. More than 35+ minutes spent in discussion consultation and coordination of care.
[2020-02-06 11:05] LABS: TSH (Thyroid Stimulating Horm) 1.98 mcIU/mL (0.34-5.60)
[2020-02-06 11:07] LABS: Free T3 2.7 pg/mL (2.5-3.9)
--- NOTE | 2020-02-06 13:02 | CATH ---
CC: Dr. Maurice Zurita; Dr. Best Hoffmann * CARDIAC CATHETERIZATION AND INTERVENTIONAL REPORT: DATE OF PROCEDURE: 02/05/20 - ROOM #446 INDICATION FOR PROCEDURE: Asked by Dr. Eitan Garcia to perform attempted intervention into proximal vein graft to obtuse marginal branch with recent non - STEMI and critical stenosed segment with MARIFER 2 to 3 flow in vessel. The patient was placed on heparin for the past 2 days after getting significant radiation to perform the diagnostic case, now for an attempt to intervene into the vein graft. CONSENT: The patient was interviewed and examined on the floor of the hospital where the risks and benefits were explained. He understood them and wished to proceed. PROCEDURE: The actual procedure was primary stenting of the proximal vein graft to the obtuse marginal branch utilizing a 4.0 x 22 mm long Orsiro drug- eluting stent dilated to 4.2 mm. PRECARDIAC CATHETERIZATION LABORATORY RESULTS: Hemoglobin and hematocrit of 13.5 and 39 with a platelet count of 139,000. BUN and creatinine is 17 and 1.08 , sodium 137, potassium 3.7, chloride 105, bicarb 23. EQUIPMENT UTILIZED: 1. Right femoral artery sheath was a 6.5-Romansh Merit Prelude Sheath. 2. Diagnostic guidewire was a 260 length J-tip guidewire in addition to an initial 190 length J-tip guidewire. The guide catheters attempted included a 6- Romansh IMC 90 cm length guide catheter with eventually utilizing a 6-Romansh AL2 curve guide catheter. The interventional guidewire utilized was a 300 cm length All Star guidewire. 3. The filter wire attempted was a 190 cm length FilterWire EZ 3.5 to 5.5 mm filter wire. 4. The stent utilized was a 4.0 x 22 mm long Orsiro drug-eluting stent. 5. Post stent deployment balloon inflations were made utilizing an NC 4.0 x 8 mm long Emerge balloon. 6. The perfusion catheter utilized to deliver medications to the distal bed with a 150 cm length FineCross catheter. 7. The closure device utilized was a 6/7-Romansh Mynx closure device. MEDICATIONS GIVEN: The patient had already received his Brilinta and aspirin therapy prior to coming to the lab animal technician. He was on a heparin drip. Additional heparin bolus was given to achieve an ACT of therapeutic range. The patient was also given 30 mcg of adenosine distally in the distal vein graft for protection of the distal bed utilizing the perfusion catheter. The patient had received Valium and Benadryl preoperatively. The patient received 12.5 mcg of fentanyl for mild back discomfort. DESCRIPTION OF PROCEDURE: The patient was brought to the cardiovascular laboratory. A formal time-out was performed. He was prepped and draped in a sterile fashion. The right groin area was anesthetized with 1% lidocaine, where a right femoral artery was cannulated and sheath was placed using an anterior wall only stick. Guiding views eventually were obtained with best ability utilizing the 6-Romansh AL2 curve guide catheter. Of note, the [facility] guide catheter prolapsed out on attempting to bring any wire into the vein graft. Once the guide catheter was well seated, the exchange length wire was advanced successfully across the lesion into the distal vessel. Attempts were then made to deliver the filter wire and this was unsuccessful. The decision was made at that point in time to primary stent the proximal area. Prior to the Orsiro stent being brought up, a perfusion catheter was placed distally in the vein graft and an adenosine bolus was given in order to protect the distal circulation. Following this, the stent was advanced and deployed at high atmospheres with post stent deployment balloon inflations made with the NC balloon. After this, the artery was assessed both with the wire in place and wire removed. The total contrast used was 130 cc of Omnipaque dye. The radiation exposure included 15.6 minutes of fluoro time. The air kerma radiation was 1644 mGy. The DAP radiation was 13,700 microgray per meter squared. RESULTS: INTERVENTION TO PROXIMAL GRAFT TO OBTUSE MARGINAL BRANCH: Successful reduction of subtotally occluded and critically 95 plus percent stenosed vein graft with primary stenting utilizing a 4.0 x 22 mm long Orsiro drug- eluting stent with residual stenosis of less than 10%, MARIFER-3 flow, no dissection seen. Of note, there was good blushing of the myocardium as well venous flow as well. OVERALL ASSESSMENT: Successful intervention into vein graft. At this point in time, dual- antiplatelet therapy will be maintained, recommendation is for at least a year if possible. Of note, the patient does have diagonal disease that will be attempted to be treated medically. If he becomes unstable with this, intervention into the diagonal branch may be needed. This information was shared with Dr. Susana De La Rosa who was the electrodynamicist on service on the day of this procedure. Aggressive risk factor management including obvious weight reduction in addition to statin therapy. Of note, he does not use tobacco and never has and as such we will not need to be dealing with that at this point. [id number]/[facility] #: [id number] MTDD
[2020-02-06] MEDS: cefTRIAXone(*) 1 GM in NS 0.9% 50 ML* 50 ML IVPB SCH (13:33)
[2020-02-06] MEDS: Atorvastatin* 80 MG TAB PO SCH (16:53)
[2020-02-06] MEDS ORDERED: Clopidogrel TAB* 300 MG PO ONE (20:00)
[2020-02-06] MEDS: Lisinopril TAB* 10 MG PO SCH (21:40)
[2020-02-06] MEDS: Aspirin 81 mg CHEW TAB* 81 MG TAB.CHEW PO SCH (21:40)
[2020-02-06] MEDS: Niacin ER CAP* 500 MG CAP.ER PO SCH (21:40)
[2020-02-06] MEDS: Amiodarone TAB* 200 MG PO SCH (21:40)
[2020-02-07] MEDS ORDERED: Clopidogrel TAB* 75 MG PO SCH (09:00)
[2020-02-07] MEDS ORDERED: Clopidogrel TAB* 300 MG PO ONE (09:16)
--- NOTE | 2020-02-07 09:32 | PN ---
<HarpreetrichYohana - Last Filed: 02/07/20 09:24> Subjective Date of Service: 02/07/20 - NSTEMI, PACI to vein graft Marginal, AFL failed CV Interval History: s/p RANI to vein graft marginal. No c/o chest pain, sob, WARE, palpitations or dizziness. He underwent CV for asymptomatic AFL however, at some point last night went back into AFL with labile heart rate control. Again, patient is asymptomatic. Medications Active Medications: Acetaminophen (Tylenol Tab*) 650 mg PO Q4H PRN PRN Reason: MILD PAIN or TEMP > 100.4 Last Admin: 02/04/20 08:10 Dose: 650 mg Al Hydrox/Mg Hydrox/Simethicone (Maalox Plus*) 30 ml PO Q6H PRN PRN Reason: INDIGESTION Amiodarone HCl (Cordarone Tab*) 400 mg PO BID [facility] Stop: 02/12/20 20:59 Amiodarone HCl (Cordarone Tab*) 200 mg PO BID [facility] Stop: 02/20/20 08:59 Amiodarone HCl (Cordarone Tab*) 200 mg PO DAILY [facility] Aspirin (Aspirin 81 Mg Chew Tab*) 81 mg PO BEDTIME [facility] Last Admin: 02/06/20 21:40 Dose: 81 mg Atenolol (Tenormin Tab*) 50 mg PO DAILY [facility] Last Admin: 02/06/20 08:04 Dose: 50 mg Atorvastatin Calcium (Lipitor*) 80 mg PO 1700 [facility] Last Admin: 02/06/20 16:53 Dose: 80 mg Clopidogrel Bisulfate (Plavix Tab*) 75 mg PO DAILY [facility] Furosemide (Lasix Tab*) 60 mg PO DAILY [facility] Last Admin: 02/06/20 08:04 Dose: 60 mg Hydralazine HCl (Apresoline Iv*) 5 mg IV SLOW PU Q6H PRN PRN Reason: SYSTOLIC BP GREATER THAN: Ceftriaxone Sodium 1 gm/ (Sodium Chloride) 50 mls @ 100 mls/hr IVPB Q24H [facility] Last Admin: 02/06/20 13:33 Dose: 100 mls/hr Heparin Sodium/Dextrose (Heparin Drip 25,000 Units(*)) 25,000 units in 500 mls @ 0 mls/hr IV PER RATE [facility]; Protocol Lisinopril (Prinivil Tab*) 40 mg PO DAILY@2100 [facility] Last Admin: 02/06/20 21:40 Dose: 40 mg Niacin (Niaspan Er Cap*) 500 mg PO BEDTIME [facility] Last Admin: 02/06/20 21:40 Dose: 500 mg Nitroglycerin (Nitroglycerin Tab 0.4 Mg*) 0.4 mg SL Q5M PRN PRN Reason: ANGINA Senna (Senokot 8.6 Mg Tab*) 1 tab PO BID PRN PRN Reason: CONSTIPATION Timolol Maleate (Timoptic Ophth.Soln 0.25%) 1 drop BOTH EYES BID [facility] Last Admin: 02/06/20 21:44 Dose: Not Given Warfarin Sodium (Coumadin Tab(*)) 2.5 mg PO DAILY@1000 [facility]; Protocol Objective Vital Signs: Temp Pulse Resp BP Pulse Ox 99.4 F 106 20 121/67 95 02/07/20 03:13 02/07/20 03:13 02/07/20 08:00 02/07/20 03:13 02/07/20 03:13 Oxygen Devices in Use Now: None Appearance: Super morbidly obese male lying in reverse Trandelenburg position. NAD. Eyes: No Scleral Icterus, PERRLA Ears/Nose/Mouth/Throat: Mucous Membranes Moist Neck: Trachea Midline - thick neck, no obvious increase in JVP Respiratory: Symmetrical Chest Expansion and Respiratory Effort, Clear to Auscultation - anteriorly and laterally. Cardiovascular: NL Sounds; No Murmurs; No JVD, RRR Abdominal: - - Very overweight, normal bowel sounds. Extremities: No Edema - RLE and ulceration noted, see ID note. R groin dressing on, feet warm bilaterally. Neurological: Alert and Oriented x 3, NL Muscle Strength and Tone Lines/Tubes/Other Access: Clean, Dry and Intact Peripheral IV Laboratory Results: 02/06/20 05:15 02/06/20 05:15 INR (Anticoag Therapy) 1.31 (0.82-1.09) H 02/03/20 05:50 APTT 59.8 seconds (26.0-38.0) H 02/05/20 08:33 Total Bilirubin 2.20 mg/dL (0.2-1.0) H 02/06/20 05:15 Direct Bilirubin 0.40 mg/dL (0.03-0.18) H 02/01/20 07:10 Indirect Bilirubin Not Reportable 02/01/20 06:04 AST 38 U/L (13-39) 02/06/20 05:15 ALT 37 U/L (7-52) 02/06/20 05:15 Alkaline Phosphatase 44 U/L (34-104) 02/06/20 05:15 Total Protein 6.6 g/dL (6.4-8.9) 02/06/20 05:15 Albumin 3.3 g/dL (3.2-5.2) 02/06/20 05:15 Globulin 3.3 g/dL (2-4) 02/06/20 05:15 Albumin/Globulin Ratio 1.0 (1-3) 02/06/20 05:15 Triglycerides 87 mg/dL 02/06/20 05:15 Cholesterol 99 mg/dL 02/06/20 05:15 LDL Cholesterol 43 mg/dL 02/06/20 05:15 HDL Cholesterol 38.8 mg/dL 02/06/20 05:15 TSH 1.98 mcIU/mL (0.34-5.60) 02/06/20 10:17 01/31/20 01/31/20 01/31/20 17:16 20:45 23:39 Troponin I 0.38 H* 6.63 H* 15.52 H* 02/01/20 02/01/20 06:04 09:27 Troponin I 18.49 H* 14.67 H* Laboratory Results - last 24 hr 02/06/20 10:17 TSH 1.98 Free T4 1.00 Free T3 2.70 Diagnostic Imaging: Cardiac Catheterization Report HUEY KING [id number] 01/31/20 IMPRESSION: 1. Critical stenosis of proximal saphenous vein graft to the obtuse marginal with thrombus formation. 2. STERLING to the LAD is not present and likely a small atretic vessel. 3. Saphenous vein graft to the PDA is open and patent. 4. Left main and LAD are essentially without disease. 5. Second diagonal vessel with proximal 95% stenosis. RECOMMENDATIONS: The patient will be evaluated for possible intervention to his saphenous vein graft to the PDA and possibly the second diagonal vessel. Because of the high volume of IV dye and long fluoro time, this will be considered in 2 days' time. [id number]/[facility] #: [id number] <Electronically signed by Eitan Garcia MD> 02/04/20 0750 Eitan Garcia MD Dictated Date/Time: 02/03/20 1526 Transcribed Date/Time 02/03/20 1721 2 of 2 EKG Data: Admission: Sinus vs. ectopic atrial regular rhythm. 02/03/2020: Developed atrial flutter, RVR, varying rate. ECG 02/05/2020: Atrial flutter, atypical. ECG 02/07/20; AFL rate 106 with ventricular couplets. Telemetry; AFL rate 90-115. Assessment/Plan #1 NSTEMI; Troponin peaked on 01/31 at 18. s/p RANI to vein graft marginal with known 95% proximal stenosis to diag. He is on ASA 81/day and brilinta. He underwent CV for AFL however, went back into AFL this morning. He is now agreeable to triple therapy. As a result will give 300mg loading dose Plavix now and start Plavix 75mg/day 02/08/20. Will d/c Brilinta last dose was last evening. Will continue ASA 81/day however, after 3o days of triple therapy ( ASA , Plavix, Coumadin) will stop ASA 81/day but CONTINUE plavix and coumadin thereafter. His right groin access site is non tender, no hematoma, no thrill. Denies chest pain or sob. Continue statin and bblocker therapy. #2 Paroxsymal AFL; s/p failed CV this stay. Heart rates are labile. When he is in NSR rates were 55-60 thus, will not increase Atenolol . Will increase Amiodarone load to 400mg PO BID x5 days then 200mg BID x7 days then 200mg/day. Chads vasc 3. Will start IV heparin until INR is 2 then stop heparin drip. First dose of Coumadin to be given now. Goal INR is 2( not above 2). Given his BMI is >40 he is not a candidate for DOAC therapy or Lovenox therapy. Continue Atenolol for now. I spoke with him at length the importance of weight loss, compliance with CPAP. TFTs are normal. INR 1.3 previously will monitor closely. #3 h/o Thrombocytopenia; Plts 02/06/20 were 169,000. Denies any bleed history. #4 h/o HLD on high intensity statin therapy. LDL this stay 43. #5 Disposition pending course. Goal INR at most is 2. Will convert Brilinta to Plavix and monitor closely. I suspect he has a component of VEGA given known intermittent thrombocytopenia, morbid obesity. I spoke with PCP Dr. Hoffmann who states patient has never had a hepatic eval to determine etiology of abnormal liver function. Would monitor overnight. Again INR goal is 2. Case d/w Dr. Davila who agrees with plan of care. Attending: Idris Davila <Idris Davila - Last Filed: 02/07/20 14:01> Medications Active Medications: Acetaminophen (Tylenol Tab*) 650 mg PO Q4H PRN PRN Reason: MILD PAIN or TEMP > 100.4 Last Admin: 02/04/20 08:10 Dose: 650 mg Al Hydrox/Mg Hydrox/Simethicone (Maalox Plus*) 30 ml PO Q6H PRN PRN Reason: INDIGESTION Amiodarone HCl (Cordarone Tab*) 400 mg PO BID [facility] Stop: 02/12/20 20:59 Amiodarone HCl (Cordarone Tab*) 200 mg PO BID [facility] Stop: 02/20/20 08:59 Amiodarone HCl (Cordarone Tab*) 200 mg PO DAILY [facility] Aspirin (Aspirin 81 Mg Chew Tab*) 81 mg PO BEDTIME [facility] Last Admin: 02/06/20 21:40 Dose: 81 mg Atenolol (Tenormin Tab*) 50 mg PO DAILY [facility] Last Admin: 02/07/20 10:14 Dose: 50 mg Atorvastatin Calcium (Lipitor*) 80 mg PO 1700 [facility] Last Admin: 02/06/20 16:53 Dose: 80 mg Clopidogrel Bisulfate (Plavix Tab*) 75 mg PO DAILY [facility] Furosemide (Lasix Tab*) 60 mg PO DAILY [facility] Last Admin: 02/07/20 10:13 Dose: 60 mg Heparin Sodium (Porcine) (Heparin Vial(*)) 0 units IV .PER PROTOCOL [facility] Last Admin: 02/07/20 11:02 Dose: 8,000 units Hydralazine HCl (Apresoline Iv*) 5 mg IV SLOW PU Q6H PRN PRN Reason: SYSTOLIC BP GREATER THAN: Heparin Sodium/Dextrose (Heparin Drip 25,000 Units(*)) 25,000 units in 500 mls @ 0 mls/hr IV PER RATE [facility]; Protocol Last Admin: 02/07/20 11:03 Dose: 34 mls/hr Lisinopril (Prinivil Tab*) 40 mg PO DAILY@2100 [facility] Last Admin: 02/06/20 21:40 Dose: 40 mg Niacin (Niaspan Er Cap*) 500 mg PO BEDTIME [facility] Last Admin: 02/06/20 21:40 Dose: 500 mg Nitroglycerin (Nitroglycerin Tab 0.4 Mg*) 0.4 mg SL Q5M PRN PRN Reason: ANGINA Senna (Senokot 8.6 Mg Tab*) 1 tab PO BID PRN PRN Reason: CONSTIPATION Timolol Maleate (Timoptic Ophth.Soln 0.25%) 1 drop BOTH EYES BID [facility] Last Admin: 02/07/20 10:59 Dose: Not Given Warfarin Sodium (Coumadin Tab(*)) 2.5 mg PO DAILY@1700 [facility]; Protocol Last Admin: 02/07/20 10:15 Dose: 2.5 mg Objective Vital Signs: Temp Pulse Resp BP Pulse Ox 97.3 F 80 16 127/72 96 02/07/20 11:10 02/07/20 11:10 02/07/20 11:10 02/07/20 11:10 02/07/20 11:10 Laboratory Results: 02/07/20 10:03 02/07/20 10:03 INR (Anticoag Therapy) 1.31 (0.82-1.09) H 02/03/20 05:50 APTT 34.0 seconds (26.0-38.0) 02/07/20 10:03 Total Bilirubin 2.20 mg/dL (0.2-1.0) H 02/06/20 05:15 Direct Bilirubin 0.40 mg/dL (0.03-0.18) H 02/01/20 07:10 Indirect Bilirubin Not Reportable 02/01/20 06:04 AST 38 U/L (13-39) 02/06/20 05:15 ALT 37 U/L (7-52) 02/06/20 05:15 Alkaline Phosphatase 44 U/L (34-104) 02/06/20 05:15 Total Protein 6.6 g/dL (6.4-8.9) 02/06/20 05:15 Albumin 3.3 g/dL (3.2-5.2) 02/06/20 05:15 Globulin 3.3 g/dL (2-4) 02/06/20 05:15 Albumin/Globulin Ratio 1.0 (1-3) 02/06/20 05:15 Triglycerides 87 mg/dL 02/06/20 05:15 Cholesterol 99 mg/dL 02/06/20 05:15 LDL Cholesterol 43 mg/dL 02/06/20 05:15 HDL Cholesterol 38.8 mg/dL 02/06/20 05:15 TSH 1.98 mcIU/mL (0.34-5.60) 02/06/20 10:17 01/31/20 01/31/20 01/31/20 17:16 20:45 23:39 Troponin I 0.38 H* 6.63 H* 15.52 H* 02/01/20 02/01/20 06:04 09:27 Troponin I 18.49 H* 14.67 H* Assessment/Plan Discussed with patient and Ms. Baez and Dr. Mckeon. Agree with plan and will advance atenolol for better rate control. Rationale for hospitalization for IV heparin while coumadin anticoagulation pending discussed. More than 35+ minutes spent with patient and coordinating care. Nora Davila MD. 02.07.20
[2020-02-07] MEDS ORDERED: Atenolol TAB* 25 MG PO ONE (10:01)
[2020-02-07 10:10] LABS: ABS Eosinophils 0.2 10^3/ul (0-0.6); ABS Monocytes 0.7 10^3/ul (0-0.8); ABS Neutrophils 4.4 10^3/ul (1.5-7.7); Eosinophil % 3.9 %; Hematocrit 39 % (42-52); Lymphocyte % 16.1 %; Mean Corpuscular HGB Conc 34 g/dL (31-36); Mean Corpuscular Hemoglobin 31 pg (27-31); Mean Corpuscular Volume 93 fL (80-94); Mean Platelet Volume 8.3 fL (7.4-10.4); Platelet Count 165 10^3/uL (150-450); Red Blood Count 4.16 10^6 /uL (4.18-5.48); Red Cell Distribution Width 15 % (10-15); White Blood Count 6.4 10^3/uL (3.5-10.8)
[2020-02-07] MEDS: Furosemide TAB* 20 MG PO SCH (10:13)
[2020-02-07] MEDS: Atenolol TAB* 50 MG PO SCH (10:14)
[2020-02-07] MEDS: Warfarin TAB(*) 2.5 MG PO SCH (10:15)
[2020-02-07 10:26] LABS: Calcium 8.5 mg/dL (8.6-10.3); EGFR Non-African American 69.4 (>60); Potassium 3.9 mmol/L (3.5-5.0)
[2020-02-07] MEDS: Ticagrelor* 90 MG TAB PO SCH (10:26)
[2020-02-07] MEDS: Amiodarone TAB* 200 MG PO SCH ×2 (10:26→21:08)
[2020-02-07] MEDS: Timolol 0.25% OPHTH.SOLN* BTL BOTH EYES SCH ×2 (10:59→21:08)
[2020-02-07] MEDS ORDERED: Heparin VIAL(*) 5000 UNITS/ML VIAL (FIVE THOUSAND) SUBCUT ONE (11:00)
[2020-02-07] MEDS: Heparin VIAL(*) 5000 UNITS/ML VIAL (FIVE THOUSAND) IV SCH ×2 (11:02→17:39)
[2020-02-07] MEDS: Heparin DRIP 25,000 UNITS(*) 25,000 UNITS/500 ML BAG IV SCH (11:03)
--- NOTE | 2020-02-07 16:40 | PN ---
Subjective Interval History: Yesterday underwent cardiac cath with successful reduction of subtotally occluded vein graft. Patient denies chest pain or SOB. He started walking again yesterday. Objective Active Medications: Acetaminophen (Tylenol Tab*) 650 mg PO Q4H PRN PRN Reason: MILD PAIN or TEMP > 100.4 Last Admin: 02/04/20 08:10 Dose: 650 mg Al Hydrox/Mg Hydrox/Simethicone (Maalox Plus*) 30 ml PO Q6H PRN PRN Reason: INDIGESTION Amiodarone HCl (Cordarone Tab*) 400 mg PO BID [facility] Stop: 02/12/20 20:59 Amiodarone HCl (Cordarone Tab*) 200 mg PO BID [facility] Stop: 02/20/20 08:59 Amiodarone HCl (Cordarone Tab*) 200 mg PO DAILY [facility] Aspirin (Aspirin 81 Mg Chew Tab*) 81 mg PO BEDTIME [facility] Last Admin: 02/06/20 21:40 Dose: 81 mg Atenolol (Tenormin Tab*) 50 mg PO DAILY [facility] Last Admin: 02/07/20 10:14 Dose: 50 mg Atorvastatin Calcium (Lipitor*) 80 mg PO 1700 [facility] Last Admin: 02/06/20 16:53 Dose: 80 mg Clopidogrel Bisulfate (Plavix Tab*) 75 mg PO DAILY [facility] Furosemide (Lasix Tab*) 60 mg PO DAILY [facility] Last Admin: 02/07/20 10:13 Dose: 60 mg Heparin Sodium (Porcine) (Heparin Vial(*)) 0 units IV .PER PROTOCOL [facility] Last Admin: 02/07/20 11:02 Dose: 8,000 units Hydralazine HCl (Apresoline Iv*) 5 mg IV SLOW PU Q6H PRN PRN Reason: SYSTOLIC BP GREATER THAN: Heparin Sodium/Dextrose (Heparin Drip 25,000 Units(*)) 25,000 units in 500 mls @ 0 mls/hr IV PER RATE [facility]; Protocol Last Admin: 02/07/20 11:03 Dose: 34 mls/hr Lisinopril (Prinivil Tab*) 40 mg PO DAILY@2100 [facility] Last Admin: 02/06/20 21:40 Dose: 40 mg Niacin (Niaspan Er Cap*) 500 mg PO BEDTIME [facility] Last Admin: 02/06/20 21:40 Dose: 500 mg Nitroglycerin (Nitroglycerin Tab 0.4 Mg*) 0.4 mg SL Q5M PRN PRN Reason: ANGINA Senna (Senokot 8.6 Mg Tab*) 1 tab PO BID PRN PRN Reason: CONSTIPATION Timolol Maleate (Timoptic Ophth.Soln 0.25%) 1 drop BOTH EYES BID [facility] Last Admin: 02/07/20 10:59 Dose: Not Given Warfarin Sodium (Coumadin Tab(*)) 2.5 mg PO DAILY@1700 [facility]; Protocol Last Admin: 02/07/20 10:15 Dose: 2.5 mg Vital Signs - 8 hr 02/07/20 11:10 Temperature 97.3 F Pulse Rate 80 Respiratory 16 Rate Blood Pressure 127/72 (mmHg) O2 Sat by Pulse 96 Oximetry Oxygen Devices in Use Now: None Appearance: well appearing, sitting in chair, alert and conversant Eyes: No Scleral Icterus Ears/Nose/Mouth/Throat: Clear Oropharnyx, Mucous Membranes Moist Neck: Trachea Midline, - - cannot appreciate JVP Respiratory: Symmetrical Chest Expansion and Respiratory Effort, Clear to Auscultation Cardiovascular: NL Sounds; No Murmurs; No JVD, RRR Abdominal: - - protuberant, soft, nontender Extremities: - - no pitting edema, R bean with new bandage c/d/i Result Diagrams: 02/07/20 10:03 02/07/20 10:03 Microbiology and Other Data: Microbiology 02/04/20 06:15 Legionella Urinary Antigen - Final Urine Negative Legionella Antigen Streptococcus pneumoniae Ag Screen - Final Negative S. pneumo Antigen Diagnostic Imagin. Exam Date: 12/18/15 - VL ANK/BRACHIAL INDICES Right: Value (SBP) Index Brachial: 151 Posterior tibialis: 180 1.19 Dorsalis pedis: 182 1.21 Left: Value (SBP) Index Brachial: 140 Posterior tibialis: 168 1.11 Dorsalis pedis: 167 1.11 Doppler waveforms: In the interrogated lower extremity arteries, Doppler waveforms are triphasic in all distributions except the left dorsalis pedis which is biphasic. Volume pulse recordings: VPR amplitudes are symmetric bilaterally. IMPRESSION: No evidence of claudication or significant arterial disease by vascular ultrasound standards. Assess/Plan/Problems-Billing Assessment: 74M with CAD s/p CABG and stent, HFpEF, prostate cancer s/p radiation, HTN, JOSTIN ; presented with chest pain and was found with elevated troponin, concerning for NSTEMI, also noted to be in aflutter. S/p failed cardioversion and cath with stent to vein graft. - Patient Problems (1) NSTEMI (non-ST elevated myocardial infarction) Comment: h/o CABG, presents with chest pain, trop peaked at 18.49, now s/p catheterization with RANI to vein graft. - Appreciate Cardiology consult - continue aspirin (for 30 days), Plavix - continue atorvastatin (2) Atrial flutter Comment: s/p cardioversion 02/04, initially in NSR but then back to aflut. - cont atenolol and amlodipine per cards - on heparin bridge to warfarin; while on triple-therapy, goal INR is 2 (3) Heart failure with preserved ejection fraction Comment: - cont furosemide 60mg daily (4) Hypertension Current Visit: Yes Status: Acute Code(s): I10 - ESSENTIAL (PRIMARY) HYPERTENSION SNOMED Code(s): 06120206 Comment: - Continue lisinopril, atenolol (5) DVT prophylaxis Comment: - Heparin gtt bridge to warfarin Status and Disposition: Inpatient. Home when off heparin drip when INR reaches 2.
[2020-02-07] MEDS: Atorvastatin* 80 MG TAB PO SCH (17:45)
[2020-02-07] MEDS: Niacin ER CAP* 500 MG CAP.ER PO SCH (21:08)
[2020-02-07] MEDS: Aspirin 81 mg CHEW TAB* 81 MG TAB.CHEW PO SCH (21:08)
[2020-02-07] MEDS: Lisinopril TAB* 10 MG PO SCH (21:08)
[2020-02-08] MEDS: Heparin DRIP 25,000 UNITS(*) 25,000 UNITS/500 ML BAG IV SCH ×2 (04:25→23:59)
[2020-02-08 06:24] LABS: ABS Eosinophils 0.3 10^3/ul (0-0.6); ABS Lymphocytes 1.6 10^3/ul (1.0-4.8); ABS Monocytes 0.5 10^3/ul (0-0.8); ABS Neutrophils 3.5 10^3/ul (1.5-7.7); Eosinophil % 4.2 %; Hematocrit 38 % (42-52); Hemoglobin 13.1 g/dL (14.0-18.0); Lymphocyte % 27.3 %; Mean Corpuscular HGB Conc 34 g/dL (31-36); Mean Corpuscular Hemoglobin 31 pg (27-31); Mean Corpuscular Volume 92 fL (80-94); Mean Platelet Volume 8.6 fL (7.4-10.4); Platelet Count 160 10^3/uL (150-450); Red Blood Count 4.16 10^6 /uL (4.18-5.48); Red Cell Distribution Width 15 % (10-15); White Blood Count 5.9 10^3/uL (3.5-10.8)
[2020-02-08 06:35] LABS: Activated Partial Thrombo Time 88.6 seconds (26.0-38.0); INR 1.31 (0.82-1.09)
--- NOTE | 2020-02-08 08:39 | PN ---
Subjective Date of Service: 02/08/20 Interval History: No overnight events. Started warfarin yesterday and INR not at goal of 2. Still on heparin drip. Objective Active Medications: Acetaminophen (Tylenol Tab*) 650 mg PO Q4H PRN PRN Reason: MILD PAIN or TEMP > 100.4 Last Admin: 02/04/20 08:10 Dose: 650 mg Al Hydrox/Mg Hydrox/Simethicone (Maalox Plus*) 30 ml PO Q6H PRN PRN Reason: INDIGESTION Amiodarone HCl (Cordarone Tab*) 400 mg PO BID [facility] Stop: 02/12/20 20:59 Last Admin: 02/07/20 21:08 Dose: 400 mg Amiodarone HCl (Cordarone Tab*) 200 mg PO BID [facility] Stop: 02/20/20 08:59 Amiodarone HCl (Cordarone Tab*) 200 mg PO DAILY [facility] Aspirin (Aspirin 81 Mg Chew Tab*) 81 mg PO BEDTIME [facility] Last Admin: 02/07/20 21:08 Dose: 81 mg Atenolol (Tenormin Tab*) 50 mg PO DAILY [facility] Last Admin: 02/07/20 10:14 Dose: 50 mg Atorvastatin Calcium (Lipitor*) 80 mg PO 1700 [facility] Last Admin: 02/07/20 17:45 Dose: 80 mg Clopidogrel Bisulfate (Plavix Tab*) 75 mg PO DAILY [facility] Furosemide (Lasix Tab*) 60 mg PO DAILY [facility] Last Admin: 02/07/20 10:13 Dose: 60 mg Heparin Sodium (Porcine) (Heparin Vial(*)) 0 units IV .PER PROTOCOL [facility] Last Admin: 02/07/20 17:39 Dose: 8,000 units Hydralazine HCl (Apresoline Iv*) 5 mg IV SLOW PU Q6H PRN PRN Reason: SYSTOLIC BP GREATER THAN: Heparin Sodium/Dextrose (Heparin Drip 25,000 Units(*)) 25,000 units in 500 mls @ 0 mls/hr IV PER RATE [facility]; Protocol Last Admin: 02/08/20 04:25 Dose: 36 mls/hr Lisinopril (Prinivil Tab*) 40 mg PO DAILY@2100 [facility] Last Admin: 02/07/20 21:08 Dose: 40 mg Niacin (Niaspan Er Cap*) 500 mg PO BEDTIME [facility] Last Admin: 02/07/20 21:08 Dose: 500 mg Nitroglycerin (Nitroglycerin Tab 0.4 Mg*) 0.4 mg SL Q5M PRN PRN Reason: ANGINA Senna (Senokot 8.6 Mg Tab*) 1 tab PO BID PRN PRN Reason: CONSTIPATION Timolol Maleate (Timoptic Ophth.Soln 0.25%) 1 drop BOTH EYES BID [facility] Last Admin: 02/07/20 21:08 Dose: Not Given Warfarin Sodium (Coumadin Tab(*)) 2.5 mg PO DAILY@1700 [facility]; Protocol Last Admin: 02/07/20 10:15 Dose: 2.5 mg Vital Signs - 8 hr 02/08/20 02/08/20 04:00 07:57 Temperature 97.8 F 97.3 F Pulse Rate 93 77 Respiratory 17 20 Rate Blood Pressure 108/62 135/57 (mmHg) O2 Sat by Pulse 94 97 Oximetry Oxygen Devices in Use Now: None Appearance: well appearing, sitting on edge of bed, chatting on phone Neck: - - cannot appreciate JVP due to habitus Respiratory: Symmetrical Chest Expansion and Respiratory Effort, Clear to Auscultation Cardiovascular: RRR - no mgr Extremities: - - R bean bandage c/d/i; no LE edema Result Diagrams: 02/08/20 05:45 02/07/20 10:03 Microbiology and Other Data: Microbiology 02/04/20 06:15 Legionella Urinary Antigen - Final Urine Negative Legionella Antigen Streptococcus pneumoniae Ag Screen - Final Negative S. pneumo Antigen Diagnostic Imagin. Exam Date: 12/18/15 - VL ANK/BRACHIAL INDICES Right: Value (SBP) Index Brachial: 151 Posterior tibialis: 180 1.19 Dorsalis pedis: 182 1.21 Left: Value (SBP) Index Brachial: 140 Posterior tibialis: 168 1.11 Dorsalis pedis: 167 1.11 Doppler waveforms: In the interrogated lower extremity arteries, Doppler waveforms are triphasic in all distributions except the left dorsalis pedis which is biphasic. Volume pulse recordings: VPR amplitudes are symmetric bilaterally. IMPRESSION: No evidence of claudication or significant arterial disease by vascular ultrasound standards. Assess/Plan/Problems-Billing Assessment: 74M with CAD s/p CABG and stent, HFpEF, prostate cancer s/p radiation, HTN, JOSTIN ; presented with chest pain and was found with elevated troponin, concerning for NSTEMI, also noted to be in aflutter. S/p failed cardioversion and cath with stent to vein graft. - Patient Problems (1) NSTEMI (non-ST elevated myocardial infarction) Comment: h/o CABG, presents with chest pain, trop peaked at 18.49, now s/p catheterization with RANI to vein graft. - Appreciate Cardiology consult - continue aspirin (for 30 days), Plavix - continue atorvastatin (2) Atrial flutter Comment: s/p cardioversion 02/04, initially in NSR but then back to aflut. - cont atenolol and amlodipine per cards - on heparin bridge to warfarin; while on triple-therapy, goal INR is 2 (3) Heart failure with preserved ejection fraction Comment: - cont furosemide 60mg daily (4) Hypertension Current Visit: Yes Status: Acute Code(s): I10 - ESSENTIAL (PRIMARY) HYPERTENSION SNOMED Code(s): 03026917 Comment: - Continue lisinopril, atenolol (5) DVT prophylaxis Comment: - Heparin gtt bridge to warfarin Status and Disposition: Inpatient. Home when off heparin drip when INR reaches 2.
[2020-02-08] MEDS: Furosemide TAB* 20 MG PO SCH (08:59)
[2020-02-08] MEDS: Clopidogrel TAB* 75 MG PO SCH (08:59)
[2020-02-08] MEDS: Atenolol TAB* 50 MG PO SCH (09:01)
[2020-02-08] MEDS: Timolol 0.25% OPHTH.SOLN* BTL BOTH EYES SCH ×2 (09:02→20:28)
[2020-02-08] MEDS: Amiodarone TAB* 200 MG PO SCH ×2 (09:02→20:46)
[2020-02-08] MEDS ORDERED: Potassium Chloride* LIQUID 20 MEQ/15 ML UDC PO ONE (11:48)
[2020-02-08] MEDS: Heparin VIAL(*) 5000 UNITS/ML VIAL (FIVE THOUSAND) IV SCH (14:10)
[2020-02-08] MEDS: Atorvastatin* 80 MG TAB PO SCH (16:08)
[2020-02-08] MEDS: Warfarin TAB(*) 2.5 MG PO SCH (16:08)
[2020-02-08] MEDS: Niacin ER CAP* 500 MG CAP.ER PO SCH (20:46)
[2020-02-08] MEDS: Acetaminophen TAB* 325 MG PO PRN (20:47)
[2020-02-08] MEDS: Aspirin 81 mg CHEW TAB* 81 MG TAB.CHEW PO SCH (20:48)
[2020-02-08] MEDS: Lisinopril TAB* 10 MG PO SCH (20:48)
[2020-02-09 06:36] LABS: ABS Eosinophils 0.3 10^3/ul (0-0.6); ABS Lymphocytes 1.4 10^3/ul (1.0-4.8); ABS Monocytes 0.6 10^3/ul (0-0.8); ABS Neutrophils 3.5 10^3/ul (1.5-7.7); Eosinophil % 4.6 %; Hematocrit 38 % (42-52); Hemoglobin 12.6 g/dL (14.0-18.0); Lymphocyte % 24.7 %; Mean Corpuscular HGB Conc 34 g/dL (31-36); Mean Corpuscular Hemoglobin 31 pg (27-31); Mean Corpuscular Volume 93 fL (80-94); Mean Platelet Volume 8.1 fL (7.4-10.4); Nucleated Red Blood Cells % 0.1; Platelet Count 197 10^3/uL (150-450); Red Blood Count 4.03 10^6 /uL (4.18-5.48); Red Cell Distribution Width 15 % (10-15); White Blood Count 5.8 10^3/uL (3.5-10.8)
[2020-02-09 06:41] LABS: INR 1.35 (0.82-1.09)
[2020-02-09 06:53] LABS: Anion Gap 6 mmol/L (2-11); BUN/Creatinine Ratio 17.6 (8-20); Blood Urea Nitrogen 19 mg/dL (6-24); CO2 Carbon Dioxide 25 mmol/L (22-32); Calcium 8.9 mg/dL (8.6-10.3); Chloride 107 mmol/L (101-111); EGFR African American 81.3 (>60); EGFR Non-African American 67.2 (>60); Glucose 99 mg/dL (70-100); Magnesium 2.1 mg/dL (1.9-2.7); Potassium 3.8 mmol/L (3.5-5.0); Sodium 138 mmol/L (135-145)
[2020-02-09 07:11] LABS: Troponin I 0.16 ng/mL (<0.03)
[2020-02-09] MEDS ORDERED: Potassium Chloride* LIQUID 20 MEQ/15 ML UDC PO ONE (08:31)
[2020-02-09] MEDS ORDERED: Amiodarone TAB* 200 MG PO ONE (09:26)
[2020-02-09] MEDS: Clopidogrel TAB* 75 MG PO SCH (09:49)
[2020-02-09] MEDS: Amiodarone TAB* 200 MG PO SCH ×2 (09:50→10:07)
[2020-02-09] MEDS: Atenolol TAB* 50 MG PO SCH (09:52)
[2020-02-09] MEDS: Timolol 0.25% OPHTH.SOLN* BTL BOTH EYES SCH ×2 (09:52→20:46)
--- NOTE | 2020-02-09 10:26 | PN ---
Subjective Date of Service: 02/09/20 Interval History: Mr. Hatch states that he is eager to be discharged to home and that he is unhappy being hospitalized. He denies palpitations and reports no CP since cardiac cath. He denies cough, fever, chills, shortness of breath, but does report rhinorrhea. He has intermittent LE edema that improves with elevation and compression stockings; he reports that edema is at baseline currently. No other complaints today. Family History: Unchanged from Admission Social History: Unchanged from Admission Past Medical History: Unchanged from Admission Objective Active Medications: Acetaminophen (Tylenol Tab*) 650 mg PO Q4H PRN PRN Reason: MILD PAIN or TEMP > 100.4 Last Admin: 02/08/20 20:47 Dose: 650 mg Al Hydrox/Mg Hydrox/Simethicone (Maalox Plus*) 30 ml PO Q6H PRN PRN Reason: INDIGESTION Amiodarone HCl (Cordarone Tab*) 200 mg PO BID [facility] Stop: 02/20/20 08:59 Amiodarone HCl (Cordarone Tab*) 200 mg PO DAILY [facility] Aspirin (Aspirin 81 Mg Chew Tab*) 81 mg PO BEDTIME [facility] Last Admin: 02/08/20 20:48 Dose: 81 mg Atenolol (Tenormin Tab*) 50 mg PO DAILY [facility] Last Admin: 02/09/20 09:52 Dose: Not Given Atorvastatin Calcium (Lipitor*) 80 mg PO 1700 [facility] Last Admin: 02/08/20 16:08 Dose: 80 mg Clopidogrel Bisulfate (Plavix Tab*) 75 mg PO DAILY [facility] Last Admin: 02/09/20 09:49 Dose: 75 mg Furosemide (Lasix Tab*) 60 mg PO Q48H [facility] Heparin Sodium (Porcine) (Heparin Vial(*)) 0 units IV .PER PROTOCOL [facility] Last Admin: 02/08/20 14:10 Dose: 8,000 units Hydralazine HCl (Apresoline Iv*) 5 mg IV SLOW PU Q6H PRN PRN Reason: SYSTOLIC BP GREATER THAN: Heparin Sodium/Dextrose (Heparin Drip 25,000 Units(*)) 25,000 units in 500 mls @ 0 mls/hr IV PER RATE [facility]; Protocol Last Admin: 02/08/20 23:59 Dose: 35 mls/hr Lisinopril (Prinivil Tab*) 20 mg PO BEDTIME [facility] Niacin (Niaspan Er Cap*) 500 mg PO BEDTIME [facility] Last Admin: 02/08/20 20:46 Dose: 500 mg Nitroglycerin (Nitroglycerin Tab 0.4 Mg*) 0.4 mg SL Q5M PRN PRN Reason: ANGINA Potassium Chloride (Potassium Chloride Liquid) 20 meq PO DAILY [facility] Senna (Senokot 8.6 Mg Tab*) 1 tab PO BID PRN PRN Reason: CONSTIPATION Timolol Maleate (Timoptic Ophth.Soln 0.25%) 1 drop BOTH EYES BID [facility] Last Admin: 02/09/20 09:52 Dose: Not Given Warfarin Sodium (Coumadin Tab(*)) 2.5 mg PO DAILY@1700 [facility]; Protocol Last Admin: 02/08/20 16:08 Dose: 2.5 mg Vital Signs: Temp Pulse Resp BP Pulse Ox 97.5 F 61 20 105/53 97 02/09/20 07:45 02/09/20 07:45 02/09/20 08:00 02/09/20 07:45 02/09/20 07:45 Oxygen Devices in Use Now: None Appearance: Mr. Hatch is a 74M who is obese; he is sitting up in his chair with LE at floor. He appears to be in no acute distress and is breathing comfortably on room air. Eyes: No Scleral Icterus, PERRLA Ears/Nose/Mouth/Throat: NL Teeth, Lips, Gums, Clear Oropharnyx, Mucous Membranes Moist Neck: NL Appearance and Movements; NL JVP, Trachea Midline Respiratory: Symmetrical Chest Expansion and Respiratory Effort, Clear to Auscultation Cardiovascular: NL Sounds; No Murmurs; No JVD, - - irregular; b/l LE 1+ pitting edema Abdominal: NL Sounds; No Tenderness; No Distention, No Hepatosplenomegaly Extremities: No Clubbing, Cyanosis, - - CDI dressing in place to RLE; b/l 1+ pretibial pitting edema Neurological: Alert and Oriented x 3 Result Diagrams: 02/09/20 06:23 02/09/20 06:23 Additional Lab and Data: Above labs were pulled into the note, when the note was edited prior to signing. See below for labs from day of consultation. Laboratory Tests 02/01/20 02/02/20 02/04/20 06:04 05:34 05:33 Sodium 136 Potassium 3.9 Chloride 106 Carbon Dioxide 21 L BUN 15 Creatinine 1.02 Glucose 111 H Hemoglobin A1c 5.3 Total Protein 6.4 Albumin 3.8 02/04/20 05:33 WBC 7.4 Hgb 13.9 L Hct 41 L Plt Count 112 L Microbiology and Other Data: Microbiology 02/04/20 06:15 Legionella Urinary Antigen - Final Urine Negative Legionella Antigen Streptococcus pneumoniae Ag Screen - Final Negative S. pneumo Antigen Diagnostic Imagin. Exam Date: 12/18/15 - VL ANK/BRACHIAL INDICES Right: Value (SBP) Index Brachial: 151 Posterior tibialis: 180 1.19 Dorsalis pedis: 182 1.21 Left: Value (SBP) Index Brachial: 140 Posterior tibialis: 168 1.11 Dorsalis pedis: 167 1.11 Doppler waveforms: In the interrogated lower extremity arteries, Doppler waveforms are triphasic in all distributions except the left dorsalis pedis which is biphasic. Volume pulse recordings: VPR amplitudes are symmetric bilaterally. IMPRESSION: No evidence of claudication or significant arterial disease by vascular ultrasound standards. Assess/Plan/Problems-Billing Assessment: 74M with CAD s/p CABG and stent, HFpEF, prostate cancer s/p radiation, HTN, JOSTIN ; presented with chest pain and was found with elevated troponin, concerning for NSTEMI, also noted to be in aflutter. S/p failed cardioversion and cath with stent to vein graft. - Patient Problems (1) NSTEMI (non-ST elevated myocardial infarction) Comment: -h/o CABG, presents with chest pain, trop peaked at 18.49, now s/p catheterization with RANI to vein graft - Appreciate Cardiology consult - continue aspirin (for 30 days), Plavix - continue atorvastatin, BB (2) Atrial flutter Comment: -s/p cardioversion 02/04, initially in NSR but then back to a flutter -continued atrial flutter with rate control -cont atenolol and amlodipine per cards -on heparin bridge to warfarin while on triple-therapy -goal INR is 2 (3) Heart failure with preserved ejection fraction Comment: -furosemide transitioned to QOD (4) Hypertension Comment: -SBP 100-110's -lisinopril halved -continue atenolol, QOD furosemide (5) Hyperlipidemia Comment: - Continue simvastatin, niacin (6) Full code status Comment: Status and Disposition: Inpatient. Home when off heparin drip when INR reaches 2.
[2020-02-09] MEDS: Potassium Chloride* LIQUID 20 MEQ/15 ML UDC PO SCH (12:59)
[2020-02-09] MEDS: Heparin VIAL(*) 5000 UNITS/ML VIAL (FIVE THOUSAND) IV SCH (17:30)
[2020-02-09] MEDS: Warfarin TAB(*) 2.5 MG PO SCH (17:32)
[2020-02-09] MEDS: Atorvastatin* 80 MG TAB PO SCH (17:32)
[2020-02-09] MEDS: Heparin DRIP 25,000 UNITS(*) 25,000 UNITS/500 ML BAG IV SCH (19:31)
[2020-02-09] MEDS: Niacin ER CAP* 500 MG CAP.ER PO SCH (20:45)
[2020-02-09] MEDS: Lisinopril TAB* 10 MG PO SCH (20:45)
[2020-02-09] MEDS: Aspirin 81 mg CHEW TAB* 81 MG TAB.CHEW PO SCH (20:45)
[2020-02-09] MEDS ORDERED: Lisinopril TAB* 10 MG PO SCH (21:00)
[2020-02-10 08:00] LABS: INR 1.35 (0.82-1.09)
[2020-02-10] MEDS: Potassium Chloride* LIQUID 20 MEQ/15 ML UDC PO SCH (08:38)
[2020-02-10] MEDS: Atenolol TAB* 25 MG PO SCH (08:39)
[2020-02-10] MEDS: Timolol 0.25% OPHTH.SOLN* BTL BOTH EYES SCH (08:39)
[2020-02-10] MEDS: Furosemide TAB* 20 MG PO SCH (08:39)
[2020-02-10] MEDS: Clopidogrel TAB* 75 MG PO SCH (08:39)
--- NOTE | 2020-02-10 09:47 | PN ---
Subjective Date of Service: 02/10/20 Interval History: Mr. Hatch is doing well today. He denies CP, SOB, palpitations. He has not been up walking, but plans to today. He is somewhat depressed and is eager to be discharged. Otherwise, he has no other complaints. Family History: Unchanged from Admission Social History: Unchanged from Admission Past Medical History: Unchanged from Admission Objective Active Medications: Acetaminophen (Tylenol Tab*) 650 mg PO Q4H PRN PRN Reason: MILD PAIN or TEMP > 100.4 Last Admin: 02/08/20 20:47 Dose: 650 mg Al Hydrox/Mg Hydrox/Simethicone (Maalox Plus*) 30 ml PO Q6H PRN PRN Reason: INDIGESTION Amiodarone HCl (Cordarone Tab*) 200 mg PO BID [facility] Stop: 02/20/20 08:59 Amiodarone HCl (Cordarone Tab*) 200 mg PO DAILY [facility] Aspirin (Aspirin 81 Mg Chew Tab*) 81 mg PO BEDTIME [facility] Last Admin: 02/09/20 20:45 Dose: 81 mg Atenolol (Tenormin Tab*) 25 mg PO DAILY [facility] Last Admin: 02/10/20 08:39 Dose: 25 mg Atorvastatin Calcium (Lipitor*) 80 mg PO 1700 [facility] Last Admin: 02/09/20 17:32 Dose: 80 mg Clopidogrel Bisulfate (Plavix Tab*) 75 mg PO DAILY [facility] Last Admin: 02/10/20 08:39 Dose: 75 mg Furosemide (Lasix Tab*) 60 mg PO Q48H [facility] Last Admin: 02/10/20 08:39 Dose: 60 mg Heparin Sodium (Porcine) (Heparin Vial(*)) 0 units IV .PER PROTOCOL [facility] Last Admin: 02/09/20 17:30 Dose: 4,000 units Hydralazine HCl (Apresoline Iv*) 5 mg IV SLOW PU Q6H PRN PRN Reason: SYSTOLIC BP GREATER THAN: Heparin Sodium/Dextrose (Heparin Drip 25,000 Units(*)) 25,000 units in 500 mls @ 0 mls/hr IV PER RATE [facility]; Protocol Last Admin: 02/09/20 19:31 Dose: 33 mls/hr Lisinopril (Prinivil Tab*) 10 mg PO BEDTIME [facility] Last Admin: 02/09/20 20:45 Dose: 10 mg Niacin (Niaspan Er Cap*) 500 mg PO BEDTIME [facility] Last Admin: 02/09/20 20:45 Dose: 500 mg Nitroglycerin (Nitroglycerin Tab 0.4 Mg*) 0.4 mg SL Q5M PRN PRN Reason: ANGINA Pharmacy Profile Note (Coumadin Daily Reminder*) 1 note FOLLOW UP 1700 [facility] Potassium Chloride (Potassium Chloride Liquid) 20 meq PO DAILY [facility] Last Admin: 02/10/20 08:38 Dose: 20 meq Senna (Senokot 8.6 Mg Tab*) 1 tab PO BID PRN PRN Reason: CONSTIPATION Warfarin Sodium (Coumadin Tab(*)) 5 mg PO DAILY@1700 [facility]; Protocol Vital Signs: Temp Pulse Resp BP Pulse Ox 97.8 F 78 22 118/60 97 02/10/20 03:04 02/10/20 03:04 02/10/20 03:04 02/10/20 03:04 02/10/20 03:04 Oxygen Devices in Use Now: None Appearance: Mr. Hatch is an obese 74M who is sitting in chair with LE elevated. He appears comfortable, NAD, breathing comfortably on RA. Eyes: No Scleral Icterus, PERRLA Ears/Nose/Mouth/Throat: NL Teeth, Lips, Gums, Clear Oropharnyx, Mucous Membranes Moist Neck: NL Appearance and Movements; NL JVP, Trachea Midline Respiratory: Symmetrical Chest Expansion and Respiratory Effort, Clear to Auscultation Cardiovascular: NL Sounds; No Murmurs; No JVD, RRR, - - b/l LE 1+ pitting edema Abdominal: NL Sounds; No Tenderness; No Distention, No Hepatosplenomegaly, - - obese Extremities: No Clubbing, Cyanosis Neurological: Alert and Oriented x 3 Result Diagrams: 02/09/20 06:23 02/09/20 06:23 Additional Lab and Data: Above labs were pulled into the note, when the note was edited prior to signing. See below for labs from day of consultation. Laboratory Tests 02/01/20 02/02/20 02/04/20 06:04 05:34 05:33 Sodium 136 Potassium 3.9 Chloride 106 Carbon Dioxide 21 L BUN 15 Creatinine 1.02 Glucose 111 H Hemoglobin A1c 5.3 Total Protein 6.4 Albumin 3.8 02/04/20 05:33 WBC 7.4 Hgb 13.9 L Hct 41 L Plt Count 112 L Microbiology and Other Data: Microbiology 02/04/20 06:15 Legionella Urinary Antigen - Final Urine Negative Legionella Antigen Streptococcus pneumoniae Ag Screen - Final Negative S. pneumo Antigen Diagnostic Imagin. Exam Date: 12/18/15 - VL ANK/BRACHIAL INDICES Right: Value (SBP) Index Brachial: 151 Posterior tibialis: 180 1.19 Dorsalis pedis: 182 1.21 Left: Value (SBP) Index Brachial: 140 Posterior tibialis: 168 1.11 Dorsalis pedis: 167 1.11 Doppler waveforms: In the interrogated lower extremity arteries, Doppler waveforms are triphasic in all distributions except the left dorsalis pedis which is biphasic. Volume pulse recordings: VPR amplitudes are symmetric bilaterally. IMPRESSION: No evidence of claudication or significant arterial disease by vascular ultrasound standards. Assess/Plan/Problems-Billing Assessment: 74M with CAD s/p CABG and stent, HFpEF, prostate cancer s/p radiation, HTN, JOSTIN ; presented with chest pain and was found with elevated troponin, concerning for NSTEMI, also noted to be in aflutter. S/p failed cardioversion and cath with stent to vein graft. - Patient Problems (1) NSTEMI (non-ST elevated myocardial infarction) Comment: -h/o CABG, presents with chest pain, trop peaked at 18.49, now s/p catheterization with RANI to vein graft - Appreciate Cardiology consult - continue aspirin (for 30 days), Plavix - continue atorvastatin, BB (2) Atrial flutter Comment: -s/p cardioversion 02/04, initially in NSR but then back to a flutter -continued atrial flutter with rate control -cont atenolol and amiodarone per cards -on heparin bridge to warfarin while on triple-therapy -goal INR is 2; currently 1.35 (3) Heart failure with preserved ejection fraction Comment: -furosemide transitioned to QOD (4) Hypertension Comment: -SBP 100-130's -continue lisinopril (half dose), atenolol, QOD furosemide (5) Hyperlipidemia Comment: - Continue simvastatin, niacin (6) Full code status Comment: Status and Disposition: Inpatient. Home when off heparin drip when INR reaches 2.
[2020-02-10] MEDS: Heparin DRIP 25,000 UNITS(*) 25,000 UNITS/500 ML BAG IV SCH (13:58)
[2020-02-10] MEDS: Warfarin TAB(*) 5 MG PO SCH (16:10)
[2020-02-10] MEDS: Atorvastatin* 80 MG TAB PO SCH (16:10)
[2020-02-10] MEDS: Aspirin 81 mg CHEW TAB* 81 MG TAB.CHEW PO SCH (21:01)
[2020-02-10] MEDS: Niacin ER CAP* 500 MG CAP.ER PO SCH (21:01)
[2020-02-10] MEDS: Lisinopril TAB* 10 MG PO SCH (21:02)
[2020-02-11] MEDS: Potassium Chloride* LIQUID 20 MEQ/15 ML UDC PO SCH (08:46)
[2020-02-11] MEDS: Clopidogrel TAB* 75 MG PO SCH (08:46)
[2020-02-11] MEDS: Atenolol TAB* 25 MG PO SCH (08:46)
[2020-02-11 09:30] LABS: Activated Partial Thrombo Time 58.6 seconds (26.0-38.0); INR 1.36 (0.82-1.09)
[2020-02-11] MEDS: Heparin DRIP 25,000 UNITS(*) 25,000 UNITS/500 ML BAG IV SCH (09:48)
--- NOTE | 2020-02-11 14:09 | PN ---
Subjective Date of Service: 02/11/20 Interval History: Mr. Hatch is feeling fine today. He is frustrated that he is still in the hospital, but understands the need for continued hospitalization. He thinks his LE is improved from baseline. Denies CP, SOB, cough, N/V. No concerns from nursing. Tele: Atrial fibrillation, 70-100s. Increased with exertion. Family History: Unchanged from Admission Social History: Unchanged from Admission Past Medical History: Unchanged from Admission Objective Active Medications: Acetaminophen (Tylenol Tab*) 650 mg PO Q4H PRN MILD PAIN or TEMP > 100.4 Al Hydrox/Mg Hydrox/Simethicone (Maalox Plus*) 30 ml PO Q6H PRN INDIGESTION Amiodarone HCl (Cordarone Tab*) 200 mg PO BID [facility] Amiodarone HCl (Cordarone Tab*) 200 mg PO DAILY [facility] Aspirin (Aspirin 81 Mg Chew Tab*) 81 mg PO BEDTIME [facility] Atenolol (Tenormin Tab*) 25 mg PO DAILY [facility] Atorvastatin Calcium (Lipitor*) 80 mg PO 1700 [facility] Clopidogrel Bisulfate (Plavix Tab*) 75 mg PO DAILY [facility] Furosemide (Lasix Tab*) 60 mg PO Q48H [facility] Heparin Sodium (Porcine) (Heparin Vial(*)) 0 units IV .PER PROTOCOL [facility] Hydralazine HCl (Apresoline Iv*) 5 mg IV SLOW PU Q6H PRN SYSTOLIC BP GREATER THAN Heparin Sodium/Dextrose (Heparin Drip 25,000 Units(*)) 25,000 units in 500 mls @ 0 mls/hr IV PER RATE [facility]; Protocol Lisinopril (Prinivil Tab*) 10 mg PO BEDTIME [facility] Niacin (Niaspan Er Cap*) 500 mg PO BEDTIME [facility] Nitroglycerin (Nitroglycerin Tab 0.4 Mg*) 0.4 mg SL Q5M PRN ANGINA Potassium Chloride (Potassium Chloride Liquid) 20 meq PO DAILY [facility] Senna (Senokot 8.6 Mg Tab*) 1 tab PO BID PRN CONSTIPATION Warfarin Sodium (Coumadin Tab(*)) 5 mg PO DAILY@1700 [facility]; Protocol Vital Signs - 8 hr 02/11/20 02/11/20 02/11/20 07:19 08:00 11:45 Temperature 97.9 F 96.8 F Pulse Rate 66 60 Respiratory 20 16 14 Rate Blood Pressure 125/76 108/51 (mmHg) O2 Sat by Pulse 98 100 Oximetry Oxygen Devices in Use Now: None Appearance: Elderly obese male sitting in chair in NAD Ears/Nose/Mouth/Throat: Mucous Membranes Moist Neck: NL Appearance and Movements; NL JVP, Trachea Midline Respiratory: Symmetrical Chest Expansion and Respiratory Effort, Clear to Auscultation Cardiovascular: NL Sounds; No Murmurs; No JVD, - - Irregular Abdominal: NL Sounds; No Tenderness; No Distention Extremities: - - Mild nonpitting BLE Neurological: Alert and Oriented x 3 Lines/Tubes/Other Access: Clean, Dry and Intact Peripheral IV Nutrition: Taking PO's Result Diagrams: 02/09/20 06:23 02/09/20 06:23 Assess/Plan/Problems-Billing Assessment: 74M with CAD s/p CABG and stent, HFpEF, prostate cancer s/p radiation, HTN, JOSTIN ; presented with chest pain and was found with elevated troponin, concerning for NSTEMI, also noted to be in aflutter. S/p failed cardioversion and cath with stent to vein graft. - Patient Problems (1) Atrial flutter Code(s): I48.92 - UNSPECIFIED ATRIAL FLUTTER Comment: - History of paroxysmal afib/flutter - S/p cardioversion 02/04, initially in NSR but then back to a flutter - Now rate controlled; mild tachycardia with exertion - CHADS-VASc is 3 - Goal INR is 2 (not above); not a candidate for Lovenox or DOAC d/t BMI - Cont atenolol, amiodarone, heparin gtt bridge to Coumadin (2) NSTEMI (non-ST elevated myocardial infarction) Code(s): I21.4 - NON-ST ELEVATION (NSTEMI) MYOCARDIAL INFARCTION Comment: - History of CABG, presents with chest pain - Trop peaked at 18.49, now s/p catheterization with RANI to vein graft - Appreciate Cardiology consult - Continue aspirin (for 30 days), Plavix, atovastatin, atenolol (3) JESSA (acute kidney injury) Code(s): N17.9 - ACUTE KIDNEY FAILURE, UNSPECIFIED Comment: - Present on admission, now resolved (4) Hypertension Code(s): I10 - ESSENTIAL (PRIMARY) HYPERTENSION Comment: - Normotensive - Continue lisinopril (half dose), atenolol, furosemide (5) Peripheral edema Code(s): R60.9 - EDEMA, UNSPECIFIED Comment: - Chronic - Continue furosemide (6) Hyperlipidemia Code(s): E78.5 - HYPERLIPIDEMIA, UNSPECIFIED Comment: - Continue simvastatin, niacin (7) DVT prophylaxis Code(s): Z29.9 - ENCOUNTER FOR PROPHYLACTIC MEASURES, UNSPECIFIED Comment: - Heparin gtt bridge to warfarin (8) Full code status Code(s): Z78.9 - OTHER SPECIFIED HEALTH STATUS Comment: Status and Disposition: Inpatient. Home when off heparin drip when INR reaches 2. Attending: Radha Estrada
[2020-02-11] MEDS: Atorvastatin* 80 MG TAB PO SCH (16:48)
[2020-02-11] MEDS: Warfarin TAB(*) 5 MG PO SCH (16:48)
[2020-02-11] MEDS: Lisinopril TAB* 10 MG PO SCH (21:02)
[2020-02-11] MEDS: Aspirin 81 mg CHEW TAB* 81 MG TAB.CHEW PO SCH (21:02)
[2020-02-11] MEDS: Niacin ER CAP* 500 MG CAP.ER PO SCH (21:02)
[2020-02-12] MEDS: Heparin DRIP 25,000 UNITS(*) 25,000 UNITS/500 ML BAG IV SCH ×2 (04:59→23:51)
[2020-02-12 06:31] LABS: INR 1.34 (0.82-1.09)
[2020-02-12] MEDS: Potassium Chloride* LIQUID 20 MEQ/15 ML UDC PO SCH (08:49)
[2020-02-12] MEDS: Clopidogrel TAB* 75 MG PO SCH (08:50)
[2020-02-12] MEDS: Atenolol TAB* 25 MG PO SCH (08:50)
[2020-02-12] MEDS: Furosemide TAB* 20 MG PO SCH (08:50)
--- NOTE | 2020-02-12 15:16 | PN ---
Subjective Date of Service: 02/12/20 Interval History: Mr. Hatch is feeling poor today. Physical he feels well, but he is very frustrated that he still needs to be in the hospital. He is concerned about veronica another illness while here. Denies CP, SOB, cough. No concerns from nursing. Family History: Unchanged from Admission Social History: Unchanged from Admission Past Medical History: Unchanged from Admission Objective Active Medications: Acetaminophen (Tylenol Tab*) 650 mg PO Q4H PRN MILD PAIN or TEMP > 100.4 Al Hydrox/Mg Hydrox/Simethicone (Maalox Plus*) 30 ml PO Q6H PRN INDIGESTION Amiodarone HCl (Cordarone Tab*) 200 mg PO BID WIL Amiodarone HCl (Cordarone Tab*) 200 mg PO DAILY WIL Aspirin (Aspirin 81 Mg Chew Tab*) 81 mg PO BEDTIME WIL Atenolol (Tenormin Tab*) 25 mg PO DAILY WIL Atorvastatin Calcium (Lipitor*) 80 mg PO 1700 WIL Clopidogrel Bisulfate (Plavix Tab*) 75 mg PO DAILY WIL Furosemide (Lasix Tab*) 60 mg PO Q48H WIL Heparin Sodium (Porcine) (Heparin Vial(*)) 0 units IV .PER PROTOCOL WIL Hydralazine HCl (Apresoline Iv*) 5 mg IV SLOW PU Q6H PRN SYSTOLIC BP GREATER THAN Heparin Sodium/Dextrose (Heparin Drip 25,000 Units(*)) 25,000 units in 500 mls @ 0 mls/hr IV PER RATE WIL; Protocol Lisinopril (Prinivil Tab*) 10 mg PO BEDTIME WIL Niacin (Niaspan Er Cap*) 500 mg PO BEDTIME WIL Nitroglycerin (Nitroglycerin Tab 0.4 Mg*) 0.4 mg SL Q5M PRN ANGINA Potassium Chloride (Potassium Chloride Liquid) 20 meq PO DAILY WIL Senna (Senokot 8.6 Mg Tab*) 1 tab PO BID PRN CONSTIPATION Warfarin Sodium (Coumadin Tab(*)) 7.5 mg PO DAILY@1700 [facility]; Protocol Vital Signs - 8 hr 02/12/20 02/12/20 02/12/20 07:44 08:00 11:52 Temperature 98.0 F 97.6 F Pulse Rate 77 93 Respiratory 16 16 16 Rate Blood Pressure 126/76 107/62 (mmHg) O2 Sat by Pulse 98 97 Oximetry Oxygen Devices in Use Now: None Appearance: Elderly male sitting in chair in NAD Ears/Nose/Mouth/Throat: Mucous Membranes Moist Neck: NL Appearance and Movements; NL JVP, Trachea Midline Respiratory: Symmetrical Chest Expansion and Respiratory Effort, Clear to Auscultation Cardiovascular: NL Sounds; No Murmurs; No JVD, - - Irregular Abdominal: NL Sounds; No Tenderness; No Distention Extremities: - - Mild nonpitting BLE Neurological: Alert and Oriented x 3 Lines/Tubes/Other Access: Clean, Dry and Intact Peripheral IV Nutrition: Taking PO's Result Diagrams: 02/09/20 06:23 02/09/20 06:23 Assess/Plan/Problems-Billing Assessment: 74M with CAD s/p CABG and stent, HFpEF, prostate cancer s/p radiation, HTN, JOSTIN ; presented with chest pain and was found with elevated troponin, concerning for NSTEMI, also noted to be in aflutter. S/p failed cardioversion and cath with stent to vein graft. - Patient Problems (1) Atrial flutter Code(s): I48.92 - UNSPECIFIED ATRIAL FLUTTER Comment: - History of paroxysmal afib/flutter - S/p cardioversion 02/04, initially in NSR but then back to a flutter - Now rate controlled; mild tachycardia with exertion - CHADS-VASc is 3 - EKG showing prolonged QTc, likely a result of amiodarone; amio is safe to continue as long as QTc remains <600, though patient should NOT receive any other medications that could further increase QTc - Goal INR is 2 (not above); not a candidate for Lovenox or DOAC d/t BMI - Cont atenolol, amiodarone, heparin gtt bridge to Coumadin (2) NSTEMI (non-ST elevated myocardial infarction) Code(s): I21.4 - NON-ST ELEVATION (NSTEMI) MYOCARDIAL INFARCTION Comment: - History of CABG, presents with chest pain - Trop peaked at 18.49, now s/p catheterization with RANI to vein graft - Appreciate Cardiology consult - Continue aspirin (for 30 days), Plavix, atovastatin, atenolol (3) JESSA (acute kidney injury) Code(s): N17.9 - ACUTE KIDNEY FAILURE, UNSPECIFIED Comment: - Present on admission, now resolved (4) Hypertension Code(s): I10 - ESSENTIAL (PRIMARY) HYPERTENSION Comment: - Normotensive - Continue lisinopril (half dose), atenolol, furosemide (5) Peripheral edema Code(s): R60.9 - EDEMA, UNSPECIFIED Comment: - Chronic - Continue furosemide (6) Hyperlipidemia Code(s): E78.5 - HYPERLIPIDEMIA, UNSPECIFIED Comment: - Continue simvastatin, niacin (7) DVT prophylaxis Code(s): Z29.9 - ENCOUNTER FOR PROPHYLACTIC MEASURES, UNSPECIFIED Comment: - Heparin gtt bridge to warfarin (8) Full code status Code(s): Z78.9 - OTHER SPECIFIED HEALTH STATUS Comment: Status and Disposition: Inpatient. Home when off heparin drip when INR reaches 2, hopefully 1-2 more days. Attending: Radha Estrada
[2020-02-12] MEDS: Atorvastatin* 80 MG TAB PO SCH (16:38)
[2020-02-12] MEDS ORDERED: Warfarin TAB(*) 7.5 MG PO SCH (17:00)
[2020-02-12] MEDS: Niacin ER CAP* 500 MG CAP.ER PO SCH (21:40)
[2020-02-12] MEDS: Lisinopril TAB* 10 MG PO SCH (21:40)
[2020-02-12] MEDS: Aspirin 81 mg CHEW TAB* 81 MG TAB.CHEW PO SCH (21:40)
[2020-02-13 07:48] VITALS: BP 98/57
[2020-02-13] MEDS ORDERED: Amiodarone TAB* 200 MG PO SCH (09:00)
[2020-02-13 09:21] LABS: INR 1.54 (0.82-1.09)
[2020-02-13] MEDS: Atenolol TAB* 25 MG PO SCH (09:27)
[2020-02-13] MEDS: Clopidogrel TAB* 75 MG PO SCH (10:03)
[2020-02-13] MEDS: Potassium Chloride* LIQUID 20 MEQ/15 ML UDC PO SCH (10:03)
[2020-02-13] MEDS ORDERED: Warfarin TAB(*) 10 MG PO SCH (17:00)
--- NOTE | 2020-02-13 20:22 | DS ---
CC: Dr. Best Hoffmann; Dr. Maurice Zurita; Dr. Eitan Garcia * DISCHARGE SUMMARY: DATE OF ADMISSION: 01/31/20 DATE OF DISCHARGE: 02/13/20 PRIMARY CARE PROVIDER: Dr. Best Hoffmann. EDITORIAL CARTOONIST: Dr. Maurice Zurita. ATTENDING PHYSICIAN: Radha Estrada DO * (DICTATED BY JOSÉ MIGUEL FOREMAN NP) PRIMARY DIAGNOSES: 1. Evd-SP-[id number] myocardial infarction, status post drug-eluting stent to vein graft. 2. Atrial flutter. 3. Acute kidney injury. SECONDARY DIAGNOSES: 1. Hypertension. 2. Peripheral edema. 3. Hyperlipidemia. STUDIES WHILE IN THE HOSPITAL: 1. Chest x-ray on 01/13/20 reads as cardiomegaly without evidence of pneumonia. The patient is status post changed sternal thoracotomy. 2. EKG on 01/13/20 shows normal sinus rhythm with a rate of 71, diffuse T-wave flattening, minimal ST depression in V4 through V6, QTc 471. 3. EKG on 01/13/20 shows normal sinus rhythm with a rate of 68, QTc 557, otherwise unchanged. 4. EKG on 01/13/20 shows normal sinus rhythm with a rate of 66, QTc 645, otherwise remains unchanged. 5. EKG on 01/31/20 shows normal sinus rhythm with a rate of 66, QTc 673, otherwise unchanged. 6. EKG on 02/01/20 shows normal sinus rhythm with a rate of 65, QTc 477, otherwise unchanged. 7. Transthoracic echocardiogram on 02/02/20 reads as: Transthoracic echocardiogram was performed, imaging quality was poor, study was technically limited due to body habitus. Intravenous Definity was administered to enhance imaging, but it was of little help. The left ventricular estimated ejection fraction was 50% to 55%. Grossly normal left ventricular systolic function on limited parasternal imaging. Regional wall motion abnormalities cannot be excluded. Definity was used but of little help. Right ventricular cavity size is moderately dilated. Systolic function is moderately reduced. Mitral valve was not well visualized, but there was no significant regurgitation. Aortic valve was not well visualized, but there was no evidence of aortic stenosis. There is no significant pericardial effusion. Systolic pressure in the pulmonary arteries cannot be estimated. Difficult to compare to study of . 8. EKG on 02/03/20 shows atrial flutter with a rate of 97, occasional PVC. 9. Chest x-ray on 02/03/20 reads as developing patchy airspace disease of the left midlung field. 10. EKG on 02/05/20 shows atrial flutter with a rate of 91. 11. EKG on 02/05/20 shows normal sinus rhythm with a rate of 75. 12. EKG on 02/05/20 shows normal sinus rhythm with a rate of 100. 13. EKG on 02/06/20 shows normal sinus rhythm with a rate of 69. 14. EKG on 02/07/20 shows atrial flutter with a rate of 103. 15. EKG on 02/08/20 shows atrial flutter with a rate of 82. 16. EKG on 02/10/20 shows atrial flutter with a rate of 85, QTc 594. 17. EKG on 02/11/20 shows atrial flutter with a rate of 92, QTc 525, occasional PVCs. CONSULTATIONS WHILE IN THE HOSPITAL: 1. Dr. Garcia, Dr. De La Rosa, and Yohana Baez NP, from Cardiology. 2. Dr. Valentin from Interventional Cardiology. PROCEDURES WHILE IN THE HOSPITAL: 1. Cardiac catheterization on 02/03/[address] Garcia. 2. Cardiac catheterization on 02/05/[address] Valentin. 3. Electrical cardioversion on 02/05/[address] De La Rosa. HISTORY OF PRESENT ILLNESS AND HOSPITAL COURSE: Mr. Hatch is a 74-year- old male with past medical history of CAD, status post CABG and stent; hyperlipidemia; hypertension; paroxysmal atrial fibrillation; and obstructive sleep apnea who presented to the emergency room on 01/31/20 with complaints of chest pain. Please see the history and physical by YUNIOR Martin, for a complete summary of the events leading up to this hospitalization. In short, the patient came in with band- like pain across his chest and epigastric region and felt like it was similar to his pain that he experienced [facility]. In the emergency room, he was noted to have troponin of 0.38. He was admitted by the hospitalist service. Cardiology was consulted and the plan was made to take the patient to the scientific laboratory supervisor. He was taken scientific laboratory supervisor on 02/03/[address] Garcia. No stents were placed at that time, but there was noted to be clinical stenosis of a proximal saphenous vein graft and 95% stenosis of the second diagonal vessel. The patient was given a high volume of IV dye during that catheterization and so the plan was made to take the patient back to the scientific laboratory supervisor in 2 days for stenting. He underwent a cardiac catheterization with Dr. Valentin on 02/05/20. At that point, the patient had a drug- eluting stent placed to the stenosed vein graft. The patient's troponin did ultimately peak on 02/01/20 at 18 and then trended down. The patient was noted to go into atrial flutter on 02/03/20. He does carry a history of paroxysmal atrial fibrillation/flutter, rate was somewhat tachycardic , though not significantly. The patient was cardioverted after his catheterization on 02/05/20 and he did return to normal sinus rhythm, although shortly thereafter went back into rate controlled Aflutter. The patient was kept on anticoagulation and the plan was made to bridge him to Coumadin. Of note, the patient is not a candidate for Lovenox bridging or a DOAC due to his BMI of 47. Cardiology indicated that the goal INR for the patient is 2, not greater than 2 as the patient is on triple therapy at this point with aspirin, Plavix, and anticoagulation. The patient was started on Coumadin on 02/07/20, dose was increased, and INR was very slow to respond, it was relatively stable at 1.3. INR did finally increase today to 1.5 after receiving 7.5 mg of Coumadin last night. Again initially, the plan was to bridge the patient with a heparin drip, though at this point Cardiology advises that the patient is stable for discharge as it does seem as though he may take a few more days to become therapeutic and he has began trending up, so this is reassuring. I did speak with Yohana Baez NP, today who indicated that he would be appropriate for discharge. The patient did spike a couple fevers while here in the hospital on 02/02/20 and 02/03/20. It is not entirely clear why there was no obvious infection, so this could have been reactive. PHYSICAL EXAMINATION: On exam, the patient is alert and oriented x4 with no focal neurological deficits. Heart has irregular rhythm with no murmurs, rubs, or gallops. Lungs are clear to auscultation without rhonchi, wheezes, or rubs. There is mild edema to bilateral lower extremities, which is the patient's recorded baseline. Physical exam is otherwise benign. Mr. Hatch is stable for discharge. Most recent vital signs are as follows : Temp 97.0, heart rate 85, respiratory rate 20, oxygen saturation 99% on room air, blood pressure 98/57. DISCHARGE MEDICATIONS: New: 1. Amiodarone 200 mg p.o. b.i.d. through 02/20/20, then 200 mg daily beginning 02/21/20. 2. Atorvastatin 80 mg p.o. daily. 3. Plavix 75 mg p.o. daily. 4. Nitro 0.4 mg sublingual q.5 minutes p.r.n. angina. 5. Potassium chloride 20 mEq p.o. daily. 6. Warfarin 7.5 mg p.o. daily. Changed: 1. Lisinopril 10 mg p.o. at bedtime (previously 20 mg). 2. Furosemide 60 mg p.o. every other day (previously daily). 3. Atenolol 25 mg p.o. daily (previously 50 mg). Discontinued: 1. Simvastatin. DISCHARGE PLAN: Mr. Hatch will be discharged home. Activity will be as tolerated, though the patient should continue to remain inactive per Interventional Cardiology's recommendations due to recent cath. Diet will be heart healthy. Medications are noted above. The patient is still on loading dose amiodarone, so he will need to remain on 200 mg twice daily through , then 200 mg daily beginning 02/21/20. Atenolol dosing has been decreased. Lisinopril dosing has been decreased. Furosemide dosing has been decreased. Atorvastatin has replaced simvastatin. The patient will be on triple therapy. He will need to remain on Plavix. He should continue aspirin for 30 days post cath, last day of aspirin will be on 03/07/20. Regarding his Coumadin, the patient has been advised to take 7.5 mg of Coumadin today. We have made an appointment for him to have his INR drawn tomorrow at this PCP's office and his PCP will need to determine further dosing at that time. It is important to know that the patient's goal INR is 2, not greater than 2 due to being on triple therapy. He will need to follow up with Cardiology. He has an appointment with Dr. Zurita on 02/25/20 at 1:15 p.m. He will also need to follow up with his PCP in the next 4 to 7 days and again for Coumadin dosing. He has been advised to return to the emergency room or nearest hospital for any worsening of symptoms, shortness of breath, lightheadedness, dizziness, chest discomfort, high fevers, chills, night sweats, loss of consciousness, or any other worrisome signs or symptoms. DISCHARGE CONDITION: Stable. DISCHARGE DISPOSITION: Home. This is a summarized report of a complex medical history and hospital stay. For further details, please see the entire medical record. TIME SPENT: Approximately 60 minutes was spent on this discharge. JOSÉ MIGUEL FOREMAN NP [id number]/CPS #: [id number] GEORGE
[2020-02-14] MEDS ORDERED: Amiodarone TAB* 200 MG PO SCH (09:00)
[2020-02-21] MEDS ORDERED: Amiodarone TAB* 200 MG PO SCH (09:00)
== END 2020-02-13 12:30 | disposition home or self-care (01) | DRG 246 ==
LOC: ED 16:33 → MEDTELE 18:53 → ICU 02-05 13:44 → MEDTELE 02-06 17:56
PROVIDERS: ADMIT Physician Assistant; ATTEND Hospitalist
PROC: B2111ZZ Fluoroscopy of Multiple Coronary Arteries using Low Osmolar Contrast (ICD-10-PCS; 2020-02-03)
PROC: B2121ZZ Fluoroscopy of Single Coronary Artery Bypass Graft using Low Osmolar Contrast (ICD-10-PCS; 2020-02-03)
PROC: B2181ZZ Fluoroscopy of Left Internal Mammary Bypass Graft using Low Osmolar Contrast (ICD-10-PCS; 2020-02-03)
PROC: 5A2204Z Restoration of Cardiac Rhythm, Single (ICD-10-PCS; 2020-02-05)
PROC: 027034Z Dilation of Coronary Artery, One Artery with Drug-eluting Intraluminal Device, Percutaneous Approach (ICD-10-PCS; principal; 2020-02-05 12:00)
PROC: 5A09357 Assistance with Respiratory Ventilation, Less than 24 Consecutive Hours, Continuous Positive Airway Pressure (ICD-10-PCS; 2020-02-06)
DX: T82.858A Stenosis of other vascular prosthetic devices, implants and grafts, initial encounter (principal); I21.4 Non-ST elevation (NSTEMI) myocardial infarction; N17.9 Acute kidney failure, unspecified; I48.92 Unspecified atrial flutter; I50.32 Chronic diastolic (congestive) heart failure; Z68.42 Body mass index [BMI] 45.0-49.9, adult; E78.00 Pure hypercholesterolemia, unspecified; I25.10 Atherosclerotic heart disease of native coronary artery without angina pectoris; I11.0 Hypertensive heart disease with heart failure; N40.0 Benign prostatic hyperplasia without lower urinary tract symptoms; E78.5 Hyperlipidemia, unspecified; G47.33 Obstructive sleep apnea (adult) (pediatric); I48.0 Paroxysmal atrial fibrillation; M17.12 Unilateral primary osteoarthritis, left knee; I77.810 Thoracic aortic ectasia; R94.31 Abnormal electrocardiogram [ECG] [EKG]; R50.9 Fever, unspecified; D69.6 Thrombocytopenia, unspecified; H91.90 Unspecified hearing loss, unspecified ear; E66.01 Morbid (severe) obesity due to excess calories; R11.0 Nausea; Y83.2 Surgical operation with anastomosis, bypass or graft as the cause of abnormal reaction of the patient, or of later complication, without mention of misadventure at the time of the procedure; Z88.8 Allergy status to other drugs, medicaments and biological substances; Z88.2 Allergy status to sulfonamides; Z95.5 Presence of coronary angioplasty implant and graft; Z85.46 Personal history of malignant neoplasm of prostate; Z92.3 Personal history of irradiation; Z95.1 Presence of aortocoronary bypass graft; Y92.9 Unspecified place or not applicable; Z79.899 Other long term (current) drug therapy
CPT/HCPCS: 36415; 71045; 80048; 80053; 80061; 81003; 81015; 82247; 82565; 82570; 83036; 83605; 83735; 84300; 84439; 84443; 84481; 84484; 84520; 85025; 85347; 85610; 85730; 86140; 87040; 87086; 87641; 87899; 93005; 93306; 93455; 94660; 99156; 99157; 99285; A4467; A9270-GY; C1725; C1760; C1769; C1874; C1884; C1887; C8929; C9604-LC; J0153; J0456; J0696; J1644; J2250; J2405; J3010; J3475; J3490